=== PATIENT | male | born 1965 | race Asian ===

== ENCOUNTER 2020-07-04 14:19 | Inpatient (IN) | payer MEDICAID ==
[~2020-07-04] VITALS: Ht 170.2 cm; Wt 59.6 kg
[2020-07-04 14:30] VITALS: BP 141/76
--- NOTE | 2020-07-04 14:41 | Emergency Room Report ---
History of Present Illness General Chief Complaint: Chest Pain Source: Patient Present Illness HPI Patient presents with dyspnea on exertion and left-sided chest pain that is been intermittent over the last 10 days. He gets extremely out of breath when he tries to walk. He denies prior blood clot or cardiac disease. He denies fevers or chills. He denies productive cough. No sore throat. No abdominal pain. He may have had some black stools intermittently in the past few weeks. He denies diarrhea. He denies dysuria or polyuria. No joint pain. The patient denies risk factors for cardiac disease. The patient has a lesion in the right forehead. He says his doctors have told him it is not a problem. He does not know the diagnosis. The patient denies contact or exposure to possible COVID-19 sources. No palpitations, nausea, vomiting, depression, anxiety, visual changes, dizziness, headache. Later states status post renal transplant 4 years ago. On transplant medications. Prior to transplant 6-7 years of dialysis. 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 Patient History Past Medical History: see triage record Past Surgical History: other - Renal transplant, dialysis fistula Social History: Denies: smoking, alcohol use, drug use Social History Narrative , in [place], lives by himself Reviewed Nursing Documentation: PMH: Agreed; PSxH: Agreed Nursing Documentation-PMH Past Medical History: No History, Except For Hx Hypertension: Yes Review of Systems All Other Systems: negative except mentioned in HPI Physical Exam Vital Signs Date Time Temp Pulse Resp B/P (MAP) Pulse Ox O2 Delivery O2 Flow Rate FiO2 07/04/20 14:20 98.1 82 18 136/70 (92) 98 Room Air Sp02 EP Interpretation: reviewed, normal General Appearance: well appearing, GCS 15, mild distress Head: normocephalic, atraumatic Eyes: bilateral eye PERRL, bilateral eye EOMI, bilateral eye conjunctivae pale ENT: moist mucus membranes Neck: full range of motion, supple Respiratory: chest non-tender, lungs clear, normal breath sounds, other - Tachypnea Cardiovascular #1: normal peripheral pulses, no edema, no murmur, tachycardia Cardiovascular #2: 2+ radial (L) - fistula L Gastrointestinal: non tender, soft, decreased bowel sounds Genitourinary: no CVA tenderness Musculoskeletal: back normal, normal range of motion, no calf tenderness Neurologic: oriented x3, grossly normal Psychiatric: mood/affect normal Skin: warm/dry, pallor, other - open fungating lesion R forehead Procedures Critical Care Time Critical Care Time Total Critical Care Time: 90 min bedside evaluation and treatment excludes procedures (EKG). Reason for critical care: Critical anemia, profound metabolic acidosis, acute renal failure, repeat evaluations, blood transfusion, elevated troponin Possible complications: hypotension, hypertension, IA, shock, arrhythmias, metabolic acidosis, end organ damage, respiratory failure. Interventions: Repeat assessments, blood transfusion, arrangement for emergent dialysis Course: Patient presented with dyspnea. Consideration of acute coronary syndrome with administration of aspirin and Nitropaste. Critical anemia with blood ordered. Informed consent discussed with patient. Severe metabolic acidosis. Reassessment with history of renal transplant and prior dialysis. Notified of elevated troponin. Evaluation of indicated treatment. Contact admitting physician with statement of needing emergent hemodialysis. Blood ordered and patient transfused and tolerating transfusion after informed consent. Consultations: nursing staff, EMS, admitting dialysis physician Performed by: Dr. Collins Tolerated well condition = critical Medical Decision Making Diagnostic Impression: Primary Impression: Acute renal failure Qualified Codes: N17.9 - Acute kidney failure, unspecified Additional Impressions: Chest pain Qualified Codes: R07.9 - Chest pain, unspecified Profound anemia Qualified Codes: D64.9 - Anemia, unspecified Status post kidney transplant Metabolic acidosis Basal cell carcinoma Qualified Codes: C44.41 - Basal cell carcinoma of skin of scalp and neck Elevated troponin ER Course Patient presents with dyspnea on exertion. Differential differential includes acute myocardial infarction, acute coronary syndrome, sepsis, COVID-19, pulmonary embolus amongst others. Patient evaluated with EKG, chest x-ray and labs. Patient placed on a monitoring specialist. Aspirin and nitroglycerin paste applied for possible acute coronary syndrome. Cardiac risk factors nil according to patient's history. High suspicion of acute coronary syndrome. Lack of hypoxia is against pulmonary embolus. Extremely complex patient. Lab called with low hgb. Blood ordered. 1520 Informed consent for blood transfusion. Lab called low bicarb. ABG ordered. Salicylate ordered. Severe acidosis by blood gas. Rest of electrolytes reviewed and renal failure determined. Of note potassium minimally elevated. Elevated BNP elevated BNP with clear chest x-ray. Minimally elevated troponin treated with aspirin and nitroglycerin paste. Consider troponin leak in the face of renal failure. Holding on Lovenox and metoprolol. Reevaluation after severe acidosis and anemia and renal failure patient divulges the history that he is post renal transplant and had prior dialysis. Low temp. Tylenol ordered and BC and lactic acid. 1542 due to immunocompromise state of taking transplant suppression medication antibiotics begun. Source unclear. Contact Dr. Hyde for admission and dialysis 1554 Blood started. Patient still tachypneic. No hypoxemia. Patient admitted to telemetry with anticipatory emergent dialysis. Laboratory Tests Test 07/04/20 14:26 07/04/20 15:45 07/04/20 15:54 07/04/20 16:38 White Blood Count 13.1 K/UL (4.8-10.8) H Red Blood Count 2.18 M/UL (4.70-6.10) L Hemoglobin 6.0 G/DL (14.2-18.0) *L Hematocrit 19.0 % (42.0-52.0) L Mean Corpuscular Volume 87 FL (80-99) Mean Corpuscular Hemoglobin 27.7 PG (27.0-31.0) Mean Corpuscular Hemoglobin Concent 31.9 G/DL (32.0-36.0) L Red Cell Distribution Width 19.7 % (11.6-14.8) H Platelet Count 129 K/UL (150-450) L Mean Platelet Volume 8.3 FL (6.5-10.1) Neutrophils (%) (Auto) % (45.0-75.0) Lymphocytes (%) (Auto) % (20.0-45.0) Monocytes (%) (Auto) % (1.0-10.0) Eosinophils (%) (Auto) % (0.0-3.0) Basophils (%) (Auto) % (0.0-2.0) Neutrophils % (Manual) 92 % (45-75) H Lymphocytes % (Manual) 3 % (20-45) L Monocytes % (Manual) 5 % (1-10) Eosinophils % (Manual) 0 % (0-3) Basophils % (Manual) 0 % (0-2) Band Neutrophils 0 % (0-8) Platelet Estimate Decreased L Platelet Morphology Normal Hypochromasia 3+ Anisocytosis 3+ Prothrombin Time 12.0 SEC (9.30-11.50) H Prothrombin Time INR 1.1 (0.9-1.1) Activated Partial Thromboplast Time 33 SEC (23-33) Sodium Level 125 MMOL/L (136-145) L Potassium Level 5.2 MMOL/L (3.5-5.1) H Chloride Level 100 MMOL/L (98-107) Carbon Dioxide Level 7 MMOL/L (21-32) *L Anion Gap 18 mmol/L (5-15) H Blood Urea Nitrogen 148 mg/dL (7-18) H Creatinine 12.6 MG/DL (0.55-1.30) H Estimated Glomerular Filtration Rate 4.1 mL/min (>60) Glucose Level 164 MG/DL (74-106) H Calcium Level 8.8 MG/DL (8.5-10.1) Total Bilirubin 0.5 MG/DL (0.2-1.0) Aspartate Amino Transferase (AST) 13 U/L (15-37) L Alanine Aminotransferase (ALT) 23 U/L (12-78) Alkaline Phosphatase 55 U/L (46-116) Total Creatine Kinase 90 U/L (26-308) Troponin I 0.084 ng/mL (0.000-0.056) C-Reactive Protein, Quantitative 28.6 mg/dL (0.00-0.90) H Pro-B-Type Natriuretic Peptide 90906 pg/mL (0-125) H Total Protein 6.3 G/DL (6.4-8.2) L Albumin 2.8 G/DL (3.4-5.0) L Globulin 3.5 g/dL Albumin/Globulin Ratio 0.8 (1.0-2.7) L Lactic Acid Level 1.00 mmol/L (0.4-2.0) Arterial Blood pH 7.269 (7.350-7.450) Arterial Blood Partial Pressure CO2 12.2 mmHg (35.0-45.0) *L Arterial Blood Partial Pressure O2 143.4 mmHg (75.0-100.0) H Arterial Blood HCO3 5.5 mmol/L (22.0-26.0) *L Arterial Blood Oxygen Saturation 97.2 % (95-100) Arterial Blood Base Excess -19.7 (-2-2) *L Jose Test Positive Urine Random Sodium 48 mmol/L (20-110) Urine Creatinine 59.0 MG/DL (30.0-125.0) Test 07/04/20 16:40 Ferritin 1832 NG/ML (8-388) H Lactate Dehydrogenase 202 U/L (81-234) Thyroid Stimulating Hormone (TSH) 0.528 uiU/mL (0.358-3.740) Salicylates Level 4.4 ug/mL (2.8-20) Microbiology Date/Time Source Procedure Growth Status 07/04/20 14:49 Nasopharynx SARS-CoV-2 RdRp Gene Assay - Final Complete EKG Diagnostic Results Rate: normal Rhythm: NSR ST Segments: no acute changes Rhythm Strip Diag. Results EP Interpretation: yes Rhythm: NSR, no PVC's, no ectopy Chest X-Ray Diagnostic Results Chest X-Ray Diagnostic Results : Chest X-Ray Ordered: Yes # of Views/Limited/Complete: 1 View Indication: Other EP Interpretation: Yes Interpretation: no consolidation, no effusion, no pneumothorax Impression: No acute disease Electronically Signed by: Electronically signed by Melo Collins MD Last Vital Signs Date Time Temp Pulse Resp B/P (MAP) Pulse Ox O2 Delivery O2 Flow Rate FiO2 07/05/20 00:00 97.0 78 19 100/60 (73) 96 07/04/20 21:54 Room Air Status: improved Disposition: ADMITTED INPATIENT Condition: Serious Melo Collins MD Jul 04, 2020 14:41
[2020-07-04] MEDS ORDERED: Nitroglycerin 2% oint pkt TOPIC ONE (14:45)
[2020-07-04 15:11] LABS: INR 1.1 (0.9-1.1)
[2020-07-04 15:15] LABS: MEAN CORPUSCULAR VOLUME 87 FL (80-99); PLATELET COUNT 129 K/UL (150-450); RED BLOOD COUNT 2.18 M/UL (4.70-6.10); RED CELL DISTRIBUTION WIDTH 19.7 % (11.6-14.8); WHITE BLOOD COUNT 13.1 K/UL (4.8-10.8)
[2020-07-04 15:23] LABS: ALANINE AMINOTRANSFERASE 23 U/L (12-78); ALBUMIN 2.8 G/DL (3.4-5.0); ALBUMIN/GLOBULIN RATIO 0.8 (1.0-2.7); ALKALINE PHOSPHATASE 55 U/L (46-116); ANION GAP 18 mmol/L (5-15); ASPARTATE AMINO TRANSFERASE 13 U/L (15-37); BILIRUBIN,TOTAL 0.5 MG/DL (0.2-1.0); BLOOD UREA NITROGEN 148 mg/dL (7-18); CALCIUM 8.8 MG/DL (8.5-10.1); CHLORIDE 100 MMOL/L (98-107); CREATINE KINASE 90 U/L (26-308); CREATININE 12.6 MG/DL (0.55-1.30); POTASSIUM 5.2 MMOL/L (3.5-5.1); SODIUM 125 MMOL/L (136-145)
[2020-07-04 15:29] LABS: CARBON DIOXIDE 7 MMOL/L (21-32)
[2020-07-04] MEDS ORDERED: Acetaminophen 500mg (ES) tab ORAL ONE (15:45)
[2020-07-04] MEDS ORDERED: cefTRIAXone 1 GM in NS 55 ML IVPB ONE (16:00)
--- NOTE | 2020-07-04 16:24 | Diagnostic Imaging Report ---
Indication: Chest pain Technique: One view of the chest Comparison: 06/20/2020 Findings: Lungs and pleural spaces are clear. Heart size is upper limits normal. No significant change Impression: No acute process
[2020-07-04 17:26] LABS: FERRITIN 1832 NG/ML (8-388); LACTATE DEHYDROGENASE 202 U/L (81-234)
[2020-07-04] MEDS ORDERED: Heparin Sod 1000 units/ml 10ml IV PRN (18:30)
[2020-07-04] MEDS ORDERED: COREG3.125 MG ORAL (18:35)
[2020-07-04] MEDS ORDERED: Miralax 17gm pkt ORAL PRN (18:45)
[2020-07-04] MEDS ORDERED: Zolpidem 5mg tab ORAL PRN (18:45)
[2020-07-04 20:00] VITALS: BP 127/64
[2020-07-04] MEDS ORDERED: Epoetin Alfa-EPBX(ESRD on dialysis)4000 units/ml vial SUBQ SCH (21:00)
[2020-07-04] MEDS: Nephrovite tab (Rena-Vite) ORAL SCH (21:10)
[2020-07-05] VITALS (10 sets, daily range): BP systolic 76–131; BP diastolic 50–80
[2020-07-05 07:30] LABS: HEMATOCRIT 21.4 % (42.0-52.0); MEAN CORPUSCULAR VOLUME 89 FL (80-99); PLATELET COUNT 90 K/UL (150-450); RED BLOOD COUNT 2.41 M/UL (4.70-6.10); RED CELL DISTRIBUTION WIDTH 18.1 % (11.6-14.8); WHITE BLOOD COUNT 8.9 K/UL (4.8-10.8)
[2020-07-05 07:43] LABS: BLOOD UREA NITROGEN 157 mg/dL (7-18); CALCIUM 8.4 MG/DL (8.5-10.1); CHLORIDE 100 MMOL/L (98-107); CHOLESTEROL 78 MG/DL (< 200); CREATININE 13.1 MG/DL (0.55-1.30); HDL CHOLESTEROL 18 MG/DL (40-60); POTASSIUM 5.1 MMOL/L (3.5-5.1); SODIUM 131 MMOL/L (136-145); TRIGLYCERIDES 95 MG/DL (30-150)
[2020-07-05 07:44] LABS: % IRON SATURATION 17 % (15-50); IRON 16 ug/dL (50-175); TOTAL IRON BINDING CAPACITY 96 ug/dL (250-450)
[2020-07-05 07:45] LABS: CARBON DIOXIDE < 5 MMOL/L (21-32)
[2020-07-05 08:05] LABS: HEMOGLOBIN 6.7 G/DL (14.2-18.0)
[2020-07-05] MEDS: Nephrovite tab (Rena-Vite) ORAL SCH (09:32)
--- NOTE | 2020-07-05 12:10 | History & Physical ---
History and Physical History & Physicial dictated [id number] Raulito Hyde MD Jul 05, 2020 12:10
--- NOTE | 2020-07-05 13:44 | History and Physical Report ---
DATE OF ADMISSION: 07/04/2020 CHIEF COMPLAINT: Dyspnea on exertion. HISTORY OF PRESENT ILLNESS: This is a 55-year-old [place] male with history of cadaveric renal transplantation about four and a half years ago at [facility]. The patient has not seen any doctors for a while. Last time he saw the transplant team was about a year and a half ago. He said that he did not seek any medical attention after that because [place] was closed. He has been short of breath, especially when he walks for the past 10 days or so, and finally he came to the ER. He was found to be severely uremic and acidotic. BUN and creatinine were 148 and 12.6 respectively. Bicarbonate down to 7 as well as hyponatremic with serum sodium 125. Severe anemia with hemoglobin of 6. PAST MEDICAL HISTORY: History of hypertension and end-stage renal disease. He has a left upper arm fistula. MEDICATIONS: Medications he said that he was taking are immunosuppressive medications, Prograf and prednisone. It is unclear. He does have a list of his medications. The only medication listed is Coreg for hypertension. SOCIAL HISTORY: No history of smoking or alcohol abuse. ALLERGIES: No known drug allergies. REVIEW OF SYSTEMS: As above. PHYSICAL EXAMINATION: GENERAL: The patient is a chronically ill-looking male, in no acute distress. Large ulcerating mass over head. VITAL SIGNS: Blood pressure 114/61, pulse 75, respirations 20, and temperature 97.5. HEENT: Pale conjunctivae. Anicteric sclerae. NECK: Supple. LUNGS: Clear to auscultation. HEART: S1, S2 without murmurs or rubs. ABDOMEN: Soft, nontender. EXTREMITIES: No cyanosis or edema. The patient has left upper arm fistula with some pseudoaneurysm and some faint bruit. LABORATORY FINDINGS: The CBC shows a WBC of 8900, hematocrit 21.4, hemoglobin 7.7, platelets 90,000. This is after one unit of packed red blood cell transfusion. Chemistry panel shows a serum sodium 131, potassium 5.1, chloride 100, CO2 less than 5, BUN 157, creatinine 13.1. Blood sugar is 114. Calcium is 8.4. Blood gas shows a pH of 7.27, pCO2 of 12, pO2 of 143. The patient had blood cultures done showing gram-negative rods and gram-positive cocci in cluster. COVID-19 test was negative. ASSESSMENT: This is a 55-year-old [place] male with history of end-stage renal disease, status post cadaveric renal transplantation about 4-1/2 years ago with no followup for at least one and a half years. He does not know even what his serum creatinine has been one and a half years ago. He is severely uremic with severe metabolic acidosis which explains also the feeling of shortness of breath. He is severely anemic because of his end-stage renal disease. It is unclear if he has either rejection of the transplanted kidney or he has an obstruction, which is much less likely. It appears that this worsening of his kidney function has been going on for a while, as the patient is severely anemic. It is also unclear why he is bacteremic. He does not have any catheters. Urinary tract infection is a possibility. he has also a mass over his head, possibly cancer. PLAN: The patient will be dialyzed today. He already got one unit of packed red blood cells. He will get another unit today. He needs to be on iron because his iron saturation is low. He will be on Epogen and Nephro-Tejas daily, broad-spectrum antibiotics. ID consultation will be obtained. Case was discussed with the RN. He will need to have dialysis set up as an outpatient and eventually a kidney biopsy to see if the transplanted kidney is viable. Oncology consult will be obtained. Raulito Hyde M.D. DR: IAIN JOB#: [id number] CC: ELIE
[2020-07-05] MEDS ORDERED: Cefepime HCl 500 MG in D5W 55 ML IVPB SCH ×5 (14:00→21:00)
--- NOTE | 2020-07-05 14:16 | Diagnostic Imaging Report ---
EXAM: ULTRASOUND US Renal Comp CLINICAL HISTORY: Renal failure. COMPARISON: None TECHNIQUE: Ultrasound examination of the kidneys includes grayscale images, and color and spectral doppler analysis. FINDINGS: The right kidney measures 8.3 x 3.9 x 3.7 cm and the left kidney measures 7.9 x 3.2 x 3.5 cm. Both [place] kidneys are small and echogenic with multiple cysts reflecting history of chronic renal failure. There is a transplant kidney noted in the left iliac fossa measuring 9.9 x 4.2 x 5.2 cm. Vascular flow to the transplant is maintained but there is elevated peak systolic velocity and high resistive index in the renal artery particularly at the anastomosis measuring 207 cm/s with an RI of 0.88. Infrarenal velocities are decreased. There is slight fullness of the renal pelvis of the transplant with a questionable small stone. Bladder is grossly unremarkable. IMPRESSION: ATROPHIC AND ECHOGENIC [place] KIDNEYS WITH MULTIPLE CYSTS REFLECTING CHRONIC MEDICAL RENAL DISEASE. TRANSPLANT KIDNEY NOTED IN THE LEFT ILIAC FOSSA. THERE IS ELEVATED VELOCITIES AND RESISTIVE INDEX AT THE ARTERIAL ANASTOMOSIS THERE IS QUESTION POSSIBLE RENAL ARTERY STENOSIS OF THE TRANSPLANT NOTED. SLIGHT FULLNESS OF THE RENAL PELVIS OF THE TRANSPLANT WITH A QUESTIONABLE SMALL STONE.
[2020-07-05] MEDS ORDERED: Morphine Sulfate 2mg/ml Inj(IV/IM USE ONLY) IVP PRN ×2 (15:15→17:00)
[2020-07-05] MEDS ORDERED: Nitroglycerin Subl 0.4mg tab SL PRN ×2 (15:15→17:00)
[2020-07-05] MEDS ORDERED: Digoxin 0.5mg/2ml Inj IVP SCH (15:30)
[2020-07-05] MEDS ORDERED: dilTIAZem HCl 25mg/5ml Inj IVP SCH ×3 (16:00→16:30)
--- NOTE | 2020-07-05 16:00 | Cardiac Electrophysiology PN ---
Subjective Subjective [id number] Objective Last 24 Hour Vital Signs Date Time Temp Pulse Resp B/P (MAP) Pulse Ox O2 Delivery O2 Flow Rate FiO2 07/05/20 15:31 156 07/05/20 12:00 97.4 74 20 121/80 (94) 100 07/05/20 11:45 81 07/05/20 09:00 Nasal Cannula 2.0 07/05/20 08:00 97.5 75 20 114/61 (78) 100 07/05/20 07:47 76 07/05/20 04:00 71 07/05/20 04:00 97.8 91 18 101/56 (71) 97 07/05/20 00:00 97.0 78 19 100/60 (73) 96 07/05/20 00:00 81 07/04/20 21:54 Room Air 07/04/20 21:41 99.9 07/04/20 20:00 110 07/04/20 20:00 97.5 95 20 127/64 (85) 96 07/04/20 16:24 99.9 Laboratory Tests Test 07/04/20 16:38 07/04/20 16:40 07/05/20 06:11 Urine Random Sodium 48 mmol/L (20-110) Urine Creatinine 59.0 MG/DL (30.0-125.0) Ferritin 1832 NG/ML (8-388) H Lactate Dehydrogenase 202 U/L (81-234) Thyroid Stimulating Hormone (TSH) 0.528 uiU/mL (0.358-3.740) Salicylates Level 4.4 ug/mL (2.8-20) White Blood Count 8.9 K/UL (4.8-10.8) Red Blood Count 2.41 M/UL (4.70-6.10) L Hemoglobin 6.7 G/DL (14.2-18.0) *L Hematocrit 21.4 % (42.0-52.0) L Mean Corpuscular Volume 89 FL (80-99) Mean Corpuscular Hemoglobin 27.7 PG (27.0-31.0) Mean Corpuscular Hemoglobin Concent 31.2 G/DL (32.0-36.0) L Red Cell Distribution Width 18.1 % (11.6-14.8) H Platelet Count 90 K/UL (150-450) L Mean Platelet Volume 6.8 FL (6.5-10.1) Neutrophils (%) (Auto) % (45.0-75.0) Lymphocytes (%) (Auto) % (20.0-45.0) Monocytes (%) (Auto) % (1.0-10.0) Eosinophils (%) (Auto) % (0.0-3.0) Basophils (%) (Auto) % (0.0-2.0) Differential Total Cells Counted 100 Neutrophils % (Manual) 93 % (45-75) H Lymphocytes % (Manual) 1 % (20-45) L Monocytes % (Manual) 3 % (1-10) Eosinophils % (Manual) 0 % (0-3) Basophils % (Manual) 0 % (0-2) Band Neutrophils 3 % (0-8) Platelet Estimate Decreased L Platelet Morphology Normal Hypochromasia 1+ Anisocytosis 1+ Sodium Level 131 MMOL/L (136-145) L Potassium Level 5.1 MMOL/L (3.5-5.1) Chloride Level 100 MMOL/L (98-107) Carbon Dioxide Level < 5 MMOL/L (21-32) *L Blood Urea Nitrogen 157 mg/dL (7-18) H Creatinine 13.1 MG/DL (0.55-1.30) H Estimat Glomerular Filtration Rate 4.0 mL/min (>60) Glucose Level 114 MG/DL (74-106) H Hemoglobin A1c 5.0 % (4.3-6.0) Calcium Level 8.4 MG/DL (8.5-10.1) L Iron Level 16 ug/dL (50-175) L Total Iron Binding Capacity 96 ug/dL (250-450) L Percent Iron Saturation 17 % (15-50) Unsaturated Iron Binding 80 ug/dL (112-346) L Triglycerides Level 95 MG/DL (30-150) Cholesterol Level 78 MG/DL (< 200) LDL Cholesterol 38 mg/dL (<100) HDL Cholesterol 18 MG/DL (40-60) L Cholesterol/HDL Ratio 4.3 (3.3-4.4) Hepatitis B Surface Antigen Pending Microbiology Date/Time Source Procedure Growth Status 07/04/20 15:44 Blood Blood Culture - Preliminary Resulted 07/04/20 15:30 Blood Blood Culture - Preliminary Resulted 8/19/20 14:49 Nasopharynx SARS-CoV-2 RdRp Gene Assay - Final Complete 07/04/20 19:00 Rectum Received Juaquin Tomlin MD Jul 05, 2020 16:00
[2020-07-05] MEDS ORDERED: dilTIAZem Premix 125mg/125ml 125 ML IVPB SCH ×4 (16:45→22:15)
[2020-07-05] MEDS ORDERED: dilTIAZem HCl 25mg/5ml Inj IVP ONE (16:45)
[2020-07-05] MEDS ORDERED: Digoxin 0.5mg/2ml Inj IVP ONE (16:45)
[2020-07-05] MEDS ORDERED: Miralax 17gm pkt ORAL PRN (17:00)
[2020-07-05] MEDS ORDERED: Heparin 25,000u/D5W 500ml 500 ML IV SCH ×2 (17:00)
--- NOTE | 2020-07-05 17:15 | Consultation ---
DATE OF CONSULTATION: 07/05/2020 INFECTIOUS DISEASE CONSULTATION CONSULTING PHYSICIAN: Darius Hyde MD. PRIMARY ATTENDING PHYSICIAN: Raulito Hyde MD. REASON FOR CONSULT: Gram-negative and gram-positive sepsis. HISTORY OF PRESENT ILLNESS: This is a 55-year-old male admitted yesterday from home because of left-sided chest pain and shortness of breath on exertion for 10 days. The patient was found to have leukocytosis of 13.1. Blood culture from yesterday growing gram-positive cocci in cluster and gram-negative rods. PAST MEDICAL HISTORY: Significant for end-stage renal disease. The patient has a history of renal transplant 4-1/2 years ago. According to primary doctor, noncompliance with his medication. He has hypertension. He has history of AV shunt placement in the left arm. ALLERGIES: Allergic to aspirin. MEDICATIONS: Getting IV iron, ceftriaxone, vancomycin, Epogen, Tylenol, and MiraLAX. SOCIAL HISTORY: . Denies alcohol, drug abuse, or smoking. REVIEW OF SYSTEMS: Subjective fever at home. He developed right temporal skin lesions in the past few days. He has shortness of breath and chest pain. No nausea. No vomiting. No diarrhea. No dysuria. PHYSICAL EXAMINATION: VITAL SIGNS: Temperature 97.4, pulse 74, blood pressure is 121/80. HEAD AND NECK: He has large ulcerated lesion with area of surrounding skin induration in bitemporal area. Pale conjunctivae. HEART: Normal rate. LUNGS: Clear. Getting oxygen by nasal cannula. ABDOMEN: Soft, nontender. EXTREMITIES: He has no edema. NEUROLOGIC: He is awake, alert, and oriented x3. LABORATORY AND DIAGNOSTIC DATA: Sodium 131, potassium 5.1, chloride 100, carbon dioxide less than 5, BUN 157, creatinine 13.1. Blood gas showed severe acidosis with pH of 7.269. Blood cultures, gram-positive cocci in cluster and gram-negative rods. COVID-19 test negative. IMPRESSION: Bacteremia, likely sepsis with gram-positive and gram-negative. The patient seems to have necrotic skin lesion in the right temporal area, likely skin cancer, may have infection also. He has rejected kidney transplant, renal failure, acidosis, severe anemia, and hypertension. RECOMMENDATIONS: Continue IV vancomycin. We will change ceftriaxone to cefepime. We will ask for UA and urine culture. We will follow up the cultures. At the end of my exam, I thank Dr. Raulito Hyde for involving me in the care of this patient. Darius Hyde M.D. DR: Nicole JOB#: [id number] CC:
[2020-07-05] MEDS ORDERED: Vancomycin 1.25gm/NS Premix 275 ML IVPB ONE (18:00)
[2020-07-05] MEDS ORDERED: Vancomycin 1.25gm/NS Premix 275 ML IVPB SCH (18:00)
--- NOTE | 2020-07-05 20:45 | Consultation ---
DATE OF CONSULTATION: 07/05/2020 CARDIOLOGY CONSULTATION CONSULTING PHYSICIAN: Juaquin Tomlin MD REFERRING PHYSICIAN: Raulito Hyde MD REASON FOR CONSULTATION: Atrial fibrillation, rapid ventricular response. HISTORY OF PRESENT ILLNESS: The patient is a 55-year-old Pashto gentleman with history of renal failure, status post kidney transplant about years ago at [facility]. He has not seen any doctor for a while. The patient last time saw transplant team about a year and a half ago. The patient states that [place] was closed. The patient came to the emergency room because he has been having increasing shortness of breath, was found to be severely uremic and acidotic. BUN and creatinine were 148 and 12.6 respectively and bicarb was only 7. His sodium was also 125 and was severely anemic with a hemoglobin of only 6. The patient was started on hemodialysis and is already getting blood transfusion, developed atrial fibrillation, rapid ventricular response with heart rate up to 170s even though initially he was in sinus rhythm. Cardiac electrophysiology consultation was obtained for further evaluation and management. REVIEW OF SYSTEMS: Negative other than what was mentioned in the history of present illness. MEDICATIONS: Included Prograf and prednisone even though it is not very clear. The only medicine he has listed is Coreg. SOCIAL HISTORY: He does not smoke or drink alcohol. ALLERGIES: He has no known drug allergies. PHYSICAL EXAMINATION: VITAL SIGNS: Show blood pressure of 120/80, pulse is 160, respirations 18, and he is afebrile. HEAD AND NECK: Shows positive JVD. LUNGS: Decreased breath sounds. CARDIOVASCULAR: Shows irregularly irregular, tachycardic S1 and S2. ABDOMEN: Soft. EXTREMITIES: No pitting edema. LABORATORY AND DIAGNOSTIC DATA: His labs show white count of 8.9, hemoglobin of 6, hematocrit of 19, and platelet count of only 90. Sodium is 131, potassium is 5.1, BUN of 157, creatinine of 13.1, and bicarb was less than 5. ASSESSMENT AND PLAN: 1. Atrial fibrillation, rapid ventricular response with heart rate of 180s. I will give the patient 0.5 mg IV digoxin once. We will check a digoxin level tomorrow morning. In the meantime, transfer the patient to intensive care unit, start the patient on Cardizem drip. We will get an echocardiogram for further evaluation when the heart rate is better controlled and completely rule out [place] protocol. 2. Profound anemia, hemoglobin of only 6. The patient is getting blood transfusion. 3. Acute renal failure in a patient with history of kidney transplant. The patient currently is on hemodialysis under management of Dr. Hyde. 4. Lactic acidosis. 5. Thrombocytopenia. 6. History of hypertension. 7. History of left arm fistula. Thank you very much Dr. Hyde for allowing me to participate in the care of this patient. Please do not hesitate to contact me for any questions regarding my evaluation. Juaquin Tomlin M.D. DR: NATALIA JOB#: [id number] CC:
[2020-07-05] MEDS ORDERED: Zolpidem 5mg tab ORAL PRN (21:00)
[2020-07-05] MEDS ORDERED: cefTRIAXone 1 GM in D5W 55 ML IVPB SCH (21:00)
[2020-07-05] MEDS ORDERED: Iron Sucrose 100 MG in NS 55 ML IV SCH (21:00)
[2020-07-06] VITALS (17 sets, daily range): BP systolic 91–134; BP diastolic 51–69
[2020-07-06] MEDS ORDERED: Heparin 5000 units/ml inj IV ONE (00:30)
[2020-07-06] MEDS ORDERED: Heparin 25,000u/D5W 500ml 500 ML IV SCH (00:30)
[2020-07-06 07:16] LABS: HEMATOCRIT 22.7 % (42.0-52.0); HEMOGLOBIN 7.4 G/DL (14.2-18.0); MEAN CORPUSCULAR VOLUME 86 FL (80-99); PLATELET COUNT 92 K/UL (150-450); RED BLOOD COUNT 2.63 M/UL (4.70-6.10); RED CELL DISTRIBUTION WIDTH 13.4 % (11.6-14.8); WHITE BLOOD COUNT 9.3 K/UL (4.8-10.8)
[2020-07-06 07:32] LABS: ANION GAP 28 mmol/L (5-15); BLOOD UREA NITROGEN 116 mg/dL (7-18); CALCIUM 7.5 MG/DL (8.5-10.1); CARBON DIOXIDE 11 MMOL/L (21-32); CHLORIDE 99 MMOL/L (98-107); CREATININE 10.1 MG/DL (0.55-1.30); POTASSIUM 3.8 MMOL/L (3.5-5.1); SODIUM 138 MMOL/L (136-145)
[2020-07-06] MEDS ORDERED: Heparin1,000 units/500ml Premix(Conc:2 units/ml) IV SCH (09:00)
[2020-07-06] MEDS ORDERED: Nephrovite tab (Rena-Vite) ORAL SCH (09:00)
--- NOTE | 2020-07-06 09:27 | Infectious Diseases Prog Note ---
Assessment/Plan Assessment/Plan IMPRESSION: Sepsis with Staph aureus and gram-negatives Atrial fibrillation with RVR Necrotic skin lesion in the right temporal area, ? skin cancer, Rejected kidney transplant, Renal failure, Acidosis, Severe anemia, Hypertension. RECOMMENDATIONS: Continue IV vancomycin &cefepime. We will follow up the cultures. Subjective ROS Limited/Unobtainable: No Constitutional: Reports: other - tranferred to ICU, feels better; Denies: fever Respiratory: Reports: no symptoms Cardiovascular: Reports: no symptoms Gastrointestinal/Abdominal: Reports: no symptoms Genitourinary: Reports: no symptoms Allergies: Coded Allergies: ASPIRIN (Verified Allergy, Unknown, 07/04/20) Objective Last 24 Hour Vital Signs Date Time Temp Pulse Resp B/P (MAP) Pulse Ox O2 Delivery O2 Flow Rate FiO2 07/06/20 08:00 97.6 85 23 93/51 (65) 100 07/06/20 08:00 Nasal Cannula 2.0 07/06/20 07:00 83 18 92/56 (68) 100 07/06/20 06:00 82 15 108/57 (74) 100 07/06/20 05:00 81 14 91/60 (70) 100 07/06/20 04:00 Nasal Cannula 3.0 07/06/20 04:00 85 07/06/20 04:00 98.5 82 19 103/62 (76) 100 07/06/20 03:00 84 20 99/60 (73) 100 07/06/20 02:00 85 15 119/53 (75) 100 07/06/20 01:00 84 17 102/54 (70) 100 07/06/20 00:00 98.3 88 23 106/69 (81) 100 07/06/20 00:00 90 07/06/20 00:00 Nasal Cannula 3.0 07/05/20 23:00 86 17 89/59 (69) 100 07/05/20 22:00 92 17 96/58 (71) 100 07/05/20 21:00 90 17 98/57 (71) 100 07/05/20 20:00 Nasal Cannula 3.0 07/05/20 20:00 98.6 104 23 90/56 (67) 100 07/05/20 20:00 119 07/05/20 19:00 106 23 76/50 (59) 100 07/05/20 16:38 140 125/64 07/05/20 16:00 97.5 150 20 131/58 (82) 100 07/05/20 16:00 126 07/05/20 16:00 Nasal Cannula 3.0 07/05/20 15:31 156 07/05/20 12:00 97.4 74 20 121/80 (94) 100 07/05/20 11:45 81 Height (Feet): 5 Height (Inches): 7.00 Weight (Pounds): 131 General Appearance: no acute distress HEENT: mucous membranes moist Respiratory/Chest: lungs clear Cardiovascular: normal rate Abdomen: soft, non tender Extremities: no edema Skin: ulcers, other - R temporal Neurologic/Psychiatric: alert, oriented x 3, responsive Microbiology Date/Time Source Procedure Growth Status 07/04/20 15:44 Blood Blood Culture - Preliminary Gram Negative Morgan Resulted 07/04/20 15:30 Blood Blood Culture - Preliminary Staphylococcus Aureus Gram Negative Morgan Resulted 07/04/20 14:49 Nasopharynx SARS-CoV-2 RdRp Gene Assay - Final Complete 07/04/20 19:00 Rectum Received Laboratory Tests Test 07/05/20 16:52 07/05/20 16:56 07/05/20 23:44 07/06/20 02:50 Activated Partial Thromboplast Time 32 SEC (23-33) 55 SEC (23-33) H Troponin I 0.092 ng/mL (0.000-0.056) 0.216 ng/mL (0.000-0.056) White Blood Count 9.3 K/UL (4.8-10.8) Red Blood Count 2.63 M/UL (4.70-6.10) L Hemoglobin 7.4 G/DL (14.2-18.0) L Hematocrit 22.7 % (42.0-52.0) L Mean Corpuscular Volume 86 FL (80-99) Mean Corpuscular Hemoglobin 28.3 PG (27.0-31.0) Mean Corpuscular Hemoglobin Concent 32.7 G/DL (32.0-36.0) Red Cell Distribution Width 13.4 % (11.6-14.8) Platelet Count 92 K/UL (150-450) L Mean Platelet Volume 6.1 FL (6.5-10.1) L Neutrophils (%) (Auto) % (45.0-75.0) Lymphocytes (%) (Auto) % (20.0-45.0) Monocytes (%) (Auto) % (1.0-10.0) Eosinophils (%) (Auto) % (0.0-3.0) Basophils (%) (Auto) % (0.0-2.0) Neutrophils % (Manual) Pending Lymphocytes % (Manual) Pending Platelet Estimate Pending Platelet Morphology Pending Sodium Level 138 MMOL/L (136-145) Potassium Level 3.8 MMOL/L (3.5-5.1) Chloride Level 99 MMOL/L (98-107) Carbon Dioxide Level 11 MMOL/L (21-32) L Anion Gap 28 mmol/L (5-15) H Blood Urea Nitrogen 116 mg/dL (7-18) H Creatinine 10.1 MG/DL (0.55-1.30) H Estimat Glomerular Filtration Rate 5.3 mL/min (>60) Glucose Level 111 MG/DL (74-106) H Calcium Level 7.5 MG/DL (8.5-10.1) L Pro-B-Type Natriuretic Peptide > 80327 pg/mL (0-125) H Thyroid Stimulating Hormone (TSH) 0.838 uiU/mL (0.358-3.740) Free Thyroxine 1.54 NG/DL (0.76-1.46) H Digoxin Level 1.3 NG/ML (0.5-2.0) Test 07/06/20 07:13 Activated Partial Thromboplast Time 85 SEC (23-33) H Current Medications Medications (Trade) Dose Ordered Sig/Marco A Route PRN Reason Start Time Stop Time Status Last Admin Dose Admin Acetaminophen (Tylenol) 650 mg Q4H PRN ORAL Mild Pain (Pain Scale 1-3) 07/05/20 17:00 08/03/20 16:59 Cefepime HCl 500 mg/Dextrose 55 ml @ 110 mls/hr Q24H IVPB 07/05/20 21:00 07/12/20 20:59 07/05/20 20:25 Dextrose (Dextrose 50%) 25 ml Q30M PRN IV Hypoglycemia 07/05/20 17:15 10/02/20 18:44 Dextrose (Dextrose 50%) 50 ml Q30M PRN IV Hypoglycemia 07/05/20 17:00 10/02/20 16:59 Diltiazem HCl 125 ml @ 0 mls/hr Q24H IVPB 07/05/20 22:15 07/06/20 22:14 07/05/20 22:22 Epoetin Mode (Epoetin Mode(ESRD on dialysis)) 8,000 unit THU-THU-THU SUBQ 07/06/20 21:00 10/02/20 20:59 Heparin Sodium/ Dextrose 500 ml @ 23.775 mls/ hr ADJUST PER PROTOCOL IV 07/06/20 00:30 08/05/20 00:29 07/06/20 00:53 Iron Sucrose 100 mg/Sodium Chloride 60 ml @ 240 mls/hr BEDTIME IV 07/06/20 21:00 07/10/20 21:14 Morphine Sulfate (Morphine Sulfate) 2 mg Q4H PRN IVP pain 4-10 07/05/20 17:00 07/12/20 16:59 Nitroglycerin (Ntg) 0.4 mg Q5M PRN SL Prn Chest Pain 07/05/20 17:00 08/04/20 16:59 Polyethylene Glycol (Miralax) 17 gm DAILYPRN PRN ORAL Constipation 07/05/20 17:00 08/03/20 16:59 Vancomycin HCl ([facility]anco pharmacy to dose) 1 ea DAILY PRN MISC Per rx protocol 07/05/20 17:00 08/04/20 16:59 Vitamin B Complex/ Vit C/Folic Acid (Nephrovite) 1 tab DAILY ORAL 07/06/20 09:00 08/03/20 19:59 07/06/20 08:15 Zolpidem Tartrate (Ambien) 5 mg HSPRN PRN ORAL Insomnia 07/05/20 21:00 07/11/20 20:59 Darius Hyde MD Jul 06, 2020 09:27
--- NOTE | 2020-07-06 12:07 | Cardiac Electrophysiology PN ---
Assessment/Plan Assessment/Plan 1. Atrial fibrillation, rapid ventricular response with heart rate of 180s. Got 0.5 mg IV digoxin once. Digoxin level is 1.3 Change Cardizem drip to 60 po tid Echocardiogram EF 65%. Change heparin drip to Eliquis 2.5 bid 2. Profound anemia, hemoglobin of only 6. S/P 1 unit blood transfusion. Could be due to renal failure 3. Acute renal failure in a patient with history of kidney transplant. The patient currently is on hemodialysis under management of Dr. Hyde. 4. Lactic acidosis. 5. Thrombocytopenia. 6. History of hypertension. 7. History of left arm fistula. ORLIN RN Subjective Subjective In ICU. Converted to SR on CArdizem drip. Alert in NAD Objective Last 24 Hour Vital Signs Date Time Temp Pulse Resp B/P (MAP) Pulse Ox O2 Delivery O2 Flow Rate FiO2 07/06/20 10:00 78 18 114/58 (76) 100 07/06/20 09:00 78 21 104/52 (69) 100 07/06/20 08:00 97.6 85 23 93/51 (65) 100 07/06/20 08:00 Nasal Cannula 2.0 07/06/20 07:00 83 18 92/56 (68) 100 07/06/20 06:00 82 15 108/57 (74) 100 07/06/20 05:00 81 14 91/60 (70) 100 07/06/20 04:00 Nasal Cannula 3.0 07/06/20 04:00 85 07/06/20 04:00 98.5 82 19 103/62 (76) 100 07/06/20 03:00 84 20 99/60 (73) 100 07/06/20 02:00 85 15 119/53 (75) 100 07/06/20 01:00 84 17 102/54 (70) 100 07/06/20 00:00 98.3 88 23 106/69 (81) 100 07/06/20 00:00 90 07/06/20 00:00 Nasal Cannula 3.0 07/05/20 23:00 86 17 89/59 (69) 100 07/05/20 22:00 92 17 96/58 (71) 100 07/05/20 21:00 90 17 98/57 (71) 100 07/05/20 20:00 Nasal Cannula 3.0 07/05/20 20:00 98.6 104 23 90/56 (67) 100 07/05/20 20:00 119 07/05/20 19:00 106 23 76/50 (59) 100 07/05/20 16:38 140 125/64 07/05/20 16:00 97.5 150 20 131/58 (82) 100 07/05/20 16:00 126 07/05/20 16:00 Nasal Cannula 3.0 07/05/20 15:31 156 Intake and Output 07/05/20 07/06/20 19:00 07:00 Intake Total 403.878 ml 705.21687 ml Output Total 0 ml Balance 403.878 ml 705.16012 ml Intake Oral 200 ml 240 ml IV Total 203.878 ml 465.53852 ml Output Hemodialysis UF 0 ml # Voids 1 # Bowel Movements 1 Laboratory Tests Test 07/05/20 16:52 07/05/20 16:56 07/05/20 23:44 07/06/20 02:50 Activated Partial Thromboplast Time 32 SEC (23-33) 55 SEC (23-33) H Troponin I 0.092 ng/mL (0.000-0.056) 0.216 ng/mL (0.000-0.056) White Blood Count 9.3 K/UL (4.8-10.8) Red Blood Count 2.63 M/UL (4.70-6.10) L Hemoglobin 7.4 G/DL (14.2-18.0) L Hematocrit 22.7 % (42.0-52.0) L Mean Corpuscular Volume 86 FL (80-99) Mean Corpuscular Hemoglobin 28.3 PG (27.0-31.0) Mean Corpuscular Hemoglobin Concent 32.7 G/DL (32.0-36.0) Red Cell Distribution Width 13.4 % (11.6-14.8) Platelet Count 92 K/UL (150-450) L Mean Platelet Volume 6.1 FL (6.5-10.1) L Neutrophils (%) (Auto) % (45.0-75.0) Lymphocytes (%) (Auto) % (20.0-45.0) Monocytes (%) (Auto) % (1.0-10.0) Eosinophils (%) (Auto) % (0.0-3.0) Basophils (%) (Auto) % (0.0-2.0) Neutrophils % (Manual) Pending Lymphocytes % (Manual) Pending Platelet Estimate Pending Platelet Morphology Pending Sodium Level 138 MMOL/L (136-145) Potassium Level 3.8 MMOL/L (3.5-5.1) Chloride Level 99 MMOL/L (98-107) Carbon Dioxide Level 11 MMOL/L (21-32) L Anion Gap 28 mmol/L (5-15) H Blood Urea Nitrogen 116 mg/dL (7-18) H Creatinine 10.1 MG/DL (0.55-1.30) H Estimat Glomerular Filtration Rate 5.3 mL/min (>60) Glucose Level 111 MG/DL (74-106) H Calcium Level 7.5 MG/DL (8.5-10.1) L Pro-B-Type Natriuretic Peptide > 94733 pg/mL (0-125) H Thyroid Stimulating Hormone (TSH) 0.838 uiU/mL (0.358-3.740) Free Thyroxine 1.54 NG/DL (0.76-1.46) H Digoxin Level 1.3 NG/ML (0.5-2.0) Test 07/06/20 07:13 Activated Partial Thromboplast Time 85 SEC (23-33) H Microbiology Date/Time Source Procedure Growth Status 07/04/20 15:44 Blood Blood Culture - Preliminary Gram Negative Morgan Resulted 07/04/20 15:30 Blood Blood Culture - Preliminary Staphylococcus Aureus Gram Negative Morgan Resulted 07/04/20 14:49 Nasopharynx SARS-CoV-2 RdRp Gene Assay - Final Complete 07/04/20 19:00 Rectum Received Objective HEAD AND NECK: Shows positive JVD. LUNGS: Decreased breath sounds. CARDIOVASCULAR: Shows irregularly irregular, tachycardic S1 and S2. ABDOMEN: Soft. EXTREMITIES: No pitting edema. Juaquin Tomlin MD Jul 06, 2020 12:07
--- NOTE | 2020-07-06 12:19 | Cardiac Electrophysiology PN ---
Assessment/Plan Assessment/Plan 1. Atrial fibrillation, rapid ventricular response with heart rate of 180s. Got 0.5 mg IV digoxin once. Digoxin level is 1.3 Change Cardizem drip to 60 po tid Echocardiogram EF 65%. Change heparin drip to Eliquis 2.5 bid 2. Troponin leak likely due to renal failure and atrial fib with RVR. ECho Nl EF 3. Profound anemia, hemoglobin of only 6. S/P 1 unit blood transfusion. Could be due to renal failure. Stool OB pending 4. Acute on chronic renal failure in a patient with history of kidney transplant. The patient currently is on hemodialysis under management of Dr. Hyde. 5. Thrombocytopenia. 6. History of hypertension. 7. History of left arm fistula. ORLIN RN Subjective Subjective In ICU. Converted to SR on CArdizem drip. Alert in NAD Objective Last 24 Hour Vital Signs Date Time Temp Pulse Resp B/P (MAP) Pulse Ox O2 Delivery O2 Flow Rate FiO2 07/06/20 10:00 78 18 114/58 (76) 100 07/06/20 09:00 78 21 104/52 (69) 100 07/06/20 08:00 97.6 85 23 93/51 (65) 100 07/06/20 08:00 Nasal Cannula 2.0 07/06/20 07:00 83 18 92/56 (68) 100 07/06/20 06:00 82 15 108/57 (74) 100 07/06/20 05:00 81 14 91/60 (70) 100 07/06/20 04:00 Nasal Cannula 3.0 07/06/20 04:00 85 07/06/20 04:00 98.5 82 19 103/62 (76) 100 07/06/20 03:00 84 20 99/60 (73) 100 07/06/20 02:00 85 15 119/53 (75) 100 07/06/20 01:00 84 17 102/54 (70) 100 07/06/20 00:00 98.3 88 23 106/69 (81) 100 07/06/20 00:00 90 07/06/20 00:00 Nasal Cannula 3.0 07/05/20 23:00 86 17 89/59 (69) 100 07/05/20 22:00 92 17 96/58 (71) 100 07/05/20 21:00 90 17 98/57 (71) 100 07/05/20 20:00 Nasal Cannula 3.0 07/05/20 20:00 98.6 104 23 90/56 (67) 100 07/05/20 20:00 119 07/05/20 19:00 106 23 76/50 (59) 100 07/05/20 16:38 140 125/64 07/05/20 16:00 97.5 150 20 131/58 (82) 100 07/05/20 16:00 126 07/05/20 16:00 Nasal Cannula 3.0 07/05/20 15:31 156 Intake and Output 07/05/20 07/06/20 19:00 07:00 Intake Total 403.878 ml 705.73409 ml Output Total 0 ml Balance 403.878 ml 705.74493 ml Intake Oral 200 ml 240 ml IV Total 203.878 ml 465.60299 ml Output Hemodialysis UF 0 ml # Voids 1 # Bowel Movements 1 Laboratory Tests Test 07/05/20 16:52 07/05/20 16:56 07/05/20 23:44 07/06/20 02:50 Activated Partial Thromboplast Time 32 SEC (23-33) 55 SEC (23-33) H Troponin I 0.092 ng/mL (0.000-0.056) 0.216 ng/mL (0.000-0.056) White Blood Count 9.3 K/UL (4.8-10.8) Red Blood Count 2.63 M/UL (4.70-6.10) L Hemoglobin 7.4 G/DL (14.2-18.0) L Hematocrit 22.7 % (42.0-52.0) L Mean Corpuscular Volume 86 FL (80-99) Mean Corpuscular Hemoglobin 28.3 PG (27.0-31.0) Mean Corpuscular Hemoglobin Concent 32.7 G/DL (32.0-36.0) Red Cell Distribution Width 13.4 % (11.6-14.8) Platelet Count 92 K/UL (150-450) L Mean Platelet Volume 6.1 FL (6.5-10.1) L Neutrophils (%) (Auto) % (45.0-75.0) Lymphocytes (%) (Auto) % (20.0-45.0) Monocytes (%) (Auto) % (1.0-10.0) Eosinophils (%) (Auto) % (0.0-3.0) Basophils (%) (Auto) % (0.0-2.0) Neutrophils % (Manual) Pending Lymphocytes % (Manual) Pending Platelet Estimate Pending Platelet Morphology Pending Sodium Level 138 MMOL/L (136-145) Potassium Level 3.8 MMOL/L (3.5-5.1) Chloride Level 99 MMOL/L (98-107) Carbon Dioxide Level 11 MMOL/L (21-32) L Anion Gap 28 mmol/L (5-15) H Blood Urea Nitrogen 116 mg/dL (7-18) H Creatinine 10.1 MG/DL (0.55-1.30) H Estimat Glomerular Filtration Rate 5.3 mL/min (>60) Glucose Level 111 MG/DL (74-106) H Calcium Level 7.5 MG/DL (8.5-10.1) L Pro-B-Type Natriuretic Peptide > 03502 pg/mL (0-125) H Thyroid Stimulating Hormone (TSH) 0.838 uiU/mL (0.358-3.740) Free Thyroxine 1.54 NG/DL (0.76-1.46) H Digoxin Level 1.3 NG/ML (0.5-2.0) Test 07/06/20 07:13 Activated Partial Thromboplast Time 85 SEC (23-33) H Microbiology Date/Time Source Procedure Growth Status 07/04/20 15:44 Blood Blood Culture - Preliminary Gram Negative Morgan Resulted 07/04/20 15:30 Blood Blood Culture - Preliminary Staphylococcus Aureus Gram Negative Morgan Resulted 07/04/20 14:49 Nasopharynx SARS-CoV-2 RdRp Gene Assay - Final Complete 07/04/20 19:00 Rectum Received Objective HEAD AND NECK: Shows positive JVD. LUNGS: Decreased breath sounds. CARDIOVASCULAR: Shows irregularly irregular, tachycardic S1 and S2. ABDOMEN: Soft. EXTREMITIES: No pitting edema. Juaquin Tomlin MD Jul 06, 2020 12:19
--- NOTE | 2020-07-06 13:01 | General Progress Note ---
Assessment/Plan Problem List: (1) ESRD (end stage renal disease) on dialysis ICD Codes: N18.6 - End stage renal disease; Z99.2 - Dependence on renal dialysis SNOMED: 764628530 (2) Metabolic acidosis ICD Codes: E87.2 - Acidosis SNOMED: 62540691 (3) Basal cell carcinoma ICD Codes: C44.91 - Basal cell carcinoma of skin, unspecified SNOMED: 461354175 Qualifiers: Qualified Codes: C44.41 - Basal cell carcinoma of skin of scalp and neck (4) Profound anemia ICD Codes: D64.9 - Anemia, unspecified SNOMED: 091634691 Qualifiers: Qualified Codes: D64.9 - Anemia, unspecified (5) Elevated troponin ICD Codes: R79.89 - Other specified abnormal findings of blood chemistry SNOMED: 241261299, 814456428, 252207518 (6) Status post kidney transplant ICD Codes: Z94.0 - Kidney transplant status SNOMED: 656051404, 17709310, 23501696 Assessment/Plan: abxs HD today discussed with Dr Tomlin and RN follow labs continue Epogen an IV Iron Subjective Allergies: Coded Allergies: ASPIRIN (Verified Allergy, Unknown, 07/04/20) Subjective seen in ICU better Objective Last 24 Hour Vital Signs Date Time Temp Pulse Resp B/P (MAP) Pulse Ox O2 Delivery O2 Flow Rate FiO2 07/06/20 10:00 78 18 114/58 (76) 100 07/06/20 09:00 78 21 104/52 (69) 100 07/06/20 08:00 97.6 85 23 93/51 (65) 100 07/06/20 08:00 Nasal Cannula 2.0 07/06/20 07:00 83 18 92/56 (68) 100 07/06/20 06:00 82 15 108/57 (74) 100 07/06/20 05:00 81 14 91/60 (70) 100 07/06/20 04:00 Nasal Cannula 3.0 07/06/20 04:00 85 07/06/20 04:00 98.5 82 19 103/62 (76) 100 07/06/20 03:00 84 20 99/60 (73) 100 07/06/20 02:00 85 15 119/53 (75) 100 07/06/20 01:00 84 17 102/54 (70) 100 07/06/20 00:00 98.3 88 23 106/69 (81) 100 07/06/20 00:00 90 07/06/20 00:00 Nasal Cannula 3.0 07/05/20 23:00 86 17 89/59 (69) 100 07/05/20 22:00 92 17 96/58 (71) 100 07/05/20 21:00 90 17 98/57 (71) 100 07/05/20 20:00 Nasal Cannula 3.0 07/05/20 20:00 98.6 104 23 90/56 (67) 100 07/05/20 20:00 119 07/05/20 19:00 106 23 76/50 (59) 100 07/05/20 16:38 140 125/64 07/05/20 16:00 97.5 150 20 131/58 (82) 100 07/05/20 16:00 126 07/05/20 16:00 Nasal Cannula 3.0 07/05/20 15:31 156 Intake and Output 07/05/20 07/06/20 19:00 07:00 Intake Total 403.878 ml 705.84966 ml Output Total 0 ml Balance 403.878 ml 705.02090 ml Intake Oral 200 ml 240 ml IV Total 203.878 ml 465.73428 ml Output Hemodialysis UF 0 ml # Voids 1 # Bowel Movements 1 Laboratory Tests 07/05/20 16:52: Activated Partial Thromboplast Time 32 07/05/20 16:56: Troponin I 0.092H 07/05/20 23:44: Activated Partial Thromboplast Time 55H 07/06/20 02:50: Troponin I 0.216H, White Blood Count 9.3, Red Blood Count 2.63L, Hemoglobin 7.4L , Hematocrit 22.7L, Mean Corpuscular Volume 86, Mean Corpuscular Hemoglobin 28.3 , Mean Corpuscular Hemoglobin Concent 32.7, Red Cell Distribution Width 13.4, Platelet Count 92L, Mean Platelet Volume 6.1L, Neutrophils (%) (Auto) , Lymphocytes (%) (Auto) , Monocytes (%) (Auto) , Eosinophils (%) (Auto) , Basophils (%) (Auto) , Neutrophils % (Manual) [Pending], Lymphocytes % (Manual) [Pending], Platelet Estimate [Pending], Platelet Morphology [Pending], Sodium Level 138, Potassium Level 3.8, Chloride Level 99, Carbon Dioxide Level 11L, Anion Gap 28H, Blood Urea Nitrogen 116H, Creatinine 10.1H, Estimat Glomerular Filtration Rate 5.3, Glucose Level 111H, Calcium Level 7.5L, Pro-B-Type Natriuretic Peptide > 20623W, Thyroid Stimulating Hormone (TSH) 0.838, Free Thyroxine 1.54H, Digoxin Level 1.3 07/06/20 07:13: Activated Partial Thromboplast Time 85H Height (Feet): 5 Height (Inches): 7.00 Weight (Pounds): 131 Cardiovascular: normal rate Respiratory/Chest: lungs clear Edema: no edema noted Generalized Raulito Hyde MD Jul 06, 2020 13:01
[2020-07-06 13:58] LABS: APPEARANCE,URINE CLEAR; BILIRUBIN, URINE NEGATIVE (NEGATIVE); COLOR,URINE PALE YELLOW; GLUCOSE, URINE (UA) 2+ (NEGATIVE); KETONES,URINE 2+ (NEGATIVE); LEUKOCYTE ESTERASE ,URINE 3+ (NEGATIVE); NITRITE,URINE NEGATIVE (NEGATIVE); PH,URINE 6 (4.5-8.0); PROTEIN,URINE 3+ (NEGATIVE); UROBILINOGEN,URINE NORMAL MG/DL (0.0-1.0)
[2020-07-06] MEDS ORDERED: dilTIAZem HCl 60mg tab ORAL SCH (14:00)
[2020-07-06] MEDS ORDERED: Tubing IV Secondary IV ONE (14:19)
[2020-07-06] MEDS ORDERED: Tubing Blood Filter IV ONE (14:19)
[2020-07-06] MEDS ORDERED: NS 275ml ONE (14:19)
--- NOTE | 2020-07-06 14:44 | Consultation ---
History of Present Illness General Date patient seen: Jul 06, 2020 Reason for Hospitalization: Chest Pain Present Illness HPI 55-year-old male hemodialysis patient presented to [facility] for chest pain weakness and admitted to the intensive care unit further care and management. On admission identified to have a large abnormal wound on his right forehead. Patient states that there was something there approximately a week ago and he was squeezing it out in front fortunately worsened and now has become a large open wound. Given the likelihood and evaluation of it there is a potential this was cancer the patient had been manipulating and now infected. Surgery was called to evaluate and assist with care. Patient seen, patient evaluated, chart reviewed Allergies: Coded Allergies: ASPIRIN (Verified Allergy, Unknown, 07/04/20) COVID-19 Screening Contact w/high risk pt: No Experienced COVID-19 symptoms?: No Medication History Scheduled Carvedilol (Coreg), Unknown Dose ORAL EVERY 12 HOURS, (Reported) Patient History History Provided By: Patient, Medical Record, PMD Healthcare decision maker Resuscitation status Advanced Directive on File Past Medical/Surgical History Past Medical/Surgical History: (1) Elevated troponin (2) Acute renal failure (3) Basal cell carcinoma (4) Metabolic acidosis (5) Profound anemia (6) Chest pain (7) cp (8) ESRD (end stage renal disease) on dialysis Review of Systems Review of Symptoms General ROS: no weight loss or fever Psychological ROS: no depression or mood changes, no memory loss Ophthalmic ROS: no visual changes or eye irritation ENT ROS: no nasal congestion, hearing loss, dizziness Allergy and Immunology ROS: no allergic symptoms or urticaria Hematological and Lymphatic ROS: no swollen glands, unusual bleeding or bruising Endocrine ROS: no polyuria, polydipsia, weight changes, temperature intolerance Respiratory ROS: no cough, shortness of breath, or wheezing Cardiovascular ROS: no chest pain or dyspnea on exertion Gastrointestinal ROS: denies abdominal pain, bright red blood in stool. Musculoskeletal ROS: no myalgias or arthralgias Neurological ROS: no TIA or stroke symptoms Dermatological ROS: no new or changing skin lesions, rashes or pruritis Physical Exam Physical Exam General appearance: alert, cooperative, no distress, appears stated age Head: Normocephalic, without obvious abnormality, atraumatic right forehead open wound Eyes: conjunctivae/corneas clear. PERRL, EOM's intact. Fundi benign Throat: Lips, mucosa, and tongue normal. Teeth and gums normal Neck: supple, symmetrical, trachea midline, no adenopathy, thyroid: not enlarged, symmetric, no tenderness/mass/nodules, no carotid bruit and no JVD Lungs: clear to auscultation bilaterally Heart: regular rate and rhythm, S1, S2 normal, no murmur, click, rub or gallop Abdomen: soft, non-tender. Bowel sounds normal. No masses, no organomegaly Extremities: extremities normal, atraumatic, no cyanosis or edema Pulses: 2+ and symmetric Skin: Skin color, texture, turgor normal. No rashes or lesions Neurologic: Grossly normal Last 24 Hour Vital Signs Date Time Temp Pulse Resp B/P (MAP) Pulse Ox O2 Delivery O2 Flow Rate FiO2 07/06/20 13:33 80 107/57 07/06/20 10:00 78 18 114/58 (76) 100 07/06/20 09:00 78 21 104/52 (69) 100 07/06/20 08:00 97.6 85 23 93/51 (65) 100 07/06/20 08:00 Nasal Cannula 2.0 07/06/20 07:00 83 18 92/56 (68) 100 07/06/20 06:00 82 15 108/57 (74) 100 07/06/20 05:00 81 14 91/60 (70) 100 07/06/20 04:00 Nasal Cannula 3.0 07/06/20 04:00 85 07/06/20 04:00 98.5 82 19 103/62 (76) 100 07/06/20 03:00 84 20 99/60 (73) 100 07/06/20 02:00 85 15 119/53 (75) 100 07/06/20 01:00 84 17 102/54 (70) 100 07/06/20 00:00 98.3 88 23 106/69 (81) 100 07/06/20 00:00 90 07/06/20 00:00 Nasal Cannula 3.0 07/05/20 23:00 86 17 89/59 (69) 100 07/05/20 22:00 92 17 96/58 (71) 100 07/05/20 21:00 90 17 98/57 (71) 100 07/05/20 20:00 Nasal Cannula 3.0 07/05/20 20:00 98.6 104 23 90/56 (67) 100 07/05/20 20:00 119 07/05/20 19:00 106 23 76/50 (59) 100 07/05/20 16:38 140 125/64 07/05/20 16:00 97.5 150 20 131/58 (82) 100 07/05/20 16:00 126 07/05/20 16:00 Nasal Cannula 3.0 07/05/20 15:31 156 Intake and Output 07/05/20 07/06/20 19:00 07:00 Intake Total 403.878 ml 705.23362 ml Output Total 0 ml Balance 403.878 ml 705.29621 ml Intake Oral 200 ml 240 ml IV Total 203.878 ml 465.75440 ml Output Hemodialysis UF 0 ml # Voids 1 # Bowel Movements 1 Laboratory Tests Test 07/05/20 16:52 07/05/20 16:56 07/05/20 23:44 07/06/20 02:50 Activated Partial Thromboplast Time 32 SEC (23-33) 55 SEC (23-33) H Troponin I 0.092 ng/mL (0.000-0.056) 0.216 ng/mL (0.000-0.056) White Blood Count 9.3 K/UL (4.8-10.8) Red Blood Count 2.63 M/UL (4.70-6.10) L Hemoglobin 7.4 G/DL (14.2-18.0) L Hematocrit 22.7 % (42.0-52.0) L Mean Corpuscular Volume 86 FL (80-99) Mean Corpuscular Hemoglobin 28.3 PG (27.0-31.0) Mean Corpuscular Hemoglobin Concent 32.7 G/DL (32.0-36.0) Red Cell Distribution Width 13.4 % (11.6-14.8) Platelet Count 92 K/UL (150-450) L Mean Platelet Volume 6.1 FL (6.5-10.1) L Neutrophils (%) (Auto) % (45.0-75.0) Lymphocytes (%) (Auto) % (20.0-45.0) Monocytes (%) (Auto) % (1.0-10.0) Eosinophils (%) (Auto) % (0.0-3.0) Basophils (%) (Auto) % (0.0-2.0) Differential Total Cells Counted 100 Neutrophils % (Manual) 90 % (45-75) H Lymphocytes % (Manual) 2 % (20-45) L Monocytes % (Manual) 7 % (1-10) Eosinophils % (Manual) 1 % (0-3) Basophils % (Manual) 0 % (0-2) Band Neutrophils 0 % (0-8) Platelet Estimate Adequate Platelet Morphology Normal Hypochromasia 1+ Ovalocytes Rare Roger Cells 1+ Schistocytes Occasional Sodium Level 138 MMOL/L (136-145) Potassium Level 3.8 MMOL/L (3.5-5.1) Chloride Level 99 MMOL/L (98-107) Carbon Dioxide Level 11 MMOL/L (21-32) L Anion Gap 28 mmol/L (5-15) H Blood Urea Nitrogen 116 mg/dL (7-18) H Creatinine 10.1 MG/DL (0.55-1.30) H Estimat Glomerular Filtration Rate 5.3 mL/min (>60) Glucose Level 111 MG/DL (74-106) H Calcium Level 7.5 MG/DL (8.5-10.1) L Pro-B-Type Natriuretic Peptide > 90772 pg/mL (0-125) H Thyroid Stimulating Hormone (TSH) 0.838 uiU/mL (0.358-3.740) Free Thyroxine 1.54 NG/DL (0.76-1.46) H Digoxin Level 1.3 NG/ML (0.5-2.0) Test 07/06/20 07:13 07/06/20 13:36 Activated Partial Thromboplast Time 85 SEC (23-33) H Urine Color Pale yellow Urine Appearance Clear Urine pH 6 (4.5-8.0) Urine Specific Harrison 1.010 (1.005-1.035) Urine Protein 3+ (NEGATIVE) H Urine Glucose (UA) 2+ (NEGATIVE) H Urine Ketones 2+ (NEGATIVE) H Urine Blood 4+ (NEGATIVE) H Urine Nitrite Negative (NEGATIVE) Urine Bilirubin Negative (NEGATIVE) Urine Urobilinogen Normal MG/DL (0.0-1.0) Urine Leukocyte Esterase 3+ (NEGATIVE) H Urine RBC 10-15 /HPF (0 - 0) H Urine WBC 15-20 /HPF (0 - 0) H Urine Squamous Epithelial Cells Occasional /LPF Urine Bacteria Few /HPF (NONE) Height (Feet): 5 Height (Inches): 7.00 Weight (Pounds): 131 Medications Current Medications Medications (Trade) Dose Ordered Sig/Marco A Route PRN Reason Start Time Stop Time Status Last Admin Dose Admin Acetaminophen (Tylenol) 650 mg Q4H PRN ORAL Mild Pain (Pain Scale 1-3) 07/05/20 17:00 08/03/20 16:59 Apixaban (Eliquis) 2.5 mg BID ORAL 07/06/20 18:00 10/04/20 17:59 Cefepime HCl 500 mg/Dextrose 55 ml @ 110 mls/hr Q24H IVPB 07/05/20 21:00 07/12/20 20:59 07/05/20 20:25 Dextrose (Dextrose 50%) 25 ml Q30M PRN IV Hypoglycemia 07/05/20 17:15 10/02/20 18:44 Dextrose (Dextrose 50%) 50 ml Q30M PRN IV Hypoglycemia 07/05/20 17:00 10/02/20 16:59 Diltiazem HCl (Cardizem Tab) 60 mg EVERY 8 HOURS ORAL 07/06/20 14:00 08/05/20 13:59 07/06/20 13:33 Epoetin Mdoe (Epoetin Mode(ESRD on dialysis)) 8,000 unit THU-THU-THU SUBQ 07/06/20 21:00 10/02/20 20:59 Heparin Sodium (Porcine) (Heparin Sod 1000 units/ml 10ml) 500 unit ONCE ONCE IV 07/07/20 13:15 07/07/20 13:16 Iron Sucrose 100 mg/Sodium Chloride 60 ml @ 240 mls/hr BEDTIME IV 07/06/20 21:00 07/10/20 21:14 Morphine Sulfate (Morphine Sulfate) 2 mg Q4H PRN IVP pain 4-10 07/05/20 17:00 07/12/20 16:59 Nitroglycerin (Ntg) 0.4 mg Q5M PRN SL Prn Chest Pain 07/05/20 17:00 08/04/20 16:59 Polyethylene Glycol (Miralax) 17 gm DAILYPRN PRN ORAL Constipation 07/05/20 17:00 08/03/20 16:59 Sodium Chloride 1,000 ml @ 500 mls/hr Q2H PRN IVLG sbp<90 during hd 07/07/20 13:07 08/06/20 13:06 Vancomycin HCl (Vanco pharmacy to dose) 1 ea DAILY PRN MISC Per rx protocol 07/05/20 17:00 08/04/20 16:59 Vitamin B Complex/ Vit C/Folic Acid (Nephrovite) 1 tab DAILY ORAL 07/06/20 09:00 08/03/20 19:59 07/06/20 08:15 Zolpidem Tartrate (Ambien) 5 mg HSPRN PRN ORAL Insomnia 07/05/20 21:00 07/11/20 20:59 Assessment/Plan Problem List: (1) Elevated troponin ICD Codes: R79.89 - Other specified abnormal findings of blood chemistry SNOMED: 618487236, 789705856, 655000467 (2) Acute renal failure ICD Codes: N17.9 - Acute kidney failure, unspecified SNOMED: 33592897 Qualifiers: Qualified Codes: N17.9 - Acute kidney failure, unspecified (3) Basal cell carcinoma Assessment & Plan: Right forehead scalp open wound potential basal cell carcinoma ulcerated raised edges significant slough in the center. Infected. Recommend local wound care and infection control. Will considerations for biopsy versus excisional biopsy with flap. Need medical optimization resuscitation first. Continue with current medical care. Discussed with patient and PCP. Will consider plans for local control upon improvement. Thank you fine partition patient's care. Wash wound daily with normal saline. Apply dressings 3 times daily. ICD Codes: C44.91 - Basal cell carcinoma of skin, unspecified SNOMED: 811619405 Qualifiers: Qualified Codes: C44.41 - Basal cell carcinoma of skin of scalp and neck (4) Metabolic acidosis ICD Codes: E87.2 - Acidosis SNOMED: 01881490 (5) Profound anemia ICD Codes: D64.9 - Anemia, unspecified SNOMED: 148360848 Qualifiers: Qualified Codes: D64.9 - Anemia, unspecified (6) Chest pain ICD Codes: R07.9 - Chest pain, unspecified SNOMED: 11347096 Qualifiers: Qualified Codes: R07.9 - Chest pain, unspecified (7) ESRD (end stage renal disease) on dialysis ICD Codes: N18.6 - End stage renal disease; Z99.2 - Dependence on renal dialysis SNOMED: 266307424 (8) Mathew Brown Jul 06, 2020 14:44
[2020-07-06] MEDS ORDERED: Nitroglycerin Subl 0.4mg tab SL PRN (15:30)
[2020-07-06] MEDS ORDERED: Morphine Sulfate 2mg/ml Inj(IV/IM USE ONLY) IVP PRN (16:00)
[2020-07-06] MEDS ORDERED: Miralax 17gm pkt ORAL PRN (17:00)
[2020-07-06] MEDS ORDERED: Eliquis 2.5mg tablet ORAL SCH (18:00)
[2020-07-06] MEDS: Eliquis 2.5mg tablet ORAL SCH (18:10)
[2020-07-06] MEDS ORDERED: Iron Sucrose 100 MG in NS 55 ML IV SCH (21:00)
[2020-07-06] MEDS ORDERED: Zolpidem 5mg tab ORAL PRN (21:00)
[2020-07-06] MEDS ORDERED: Epoetin Alfa-EPBX(ESRD on dialysis)4000 units/ml vial SUBQ SCH ×2 (21:00)
[2020-07-06] MEDS: Cefepime HCl 500 MG in D5W 55 ML IVPB SCH (23:52)
[2020-07-06] MEDS: Iron Sucrose 100 MG in NS 55 ML IV SCH (23:53)
[2020-07-07] VITALS: BP 153/60
[2020-07-07] MEDS: dilTIAZem HCl 60mg tab ORAL SCH ×4 (00:35→21:11)
[2020-07-07 04:00] VITALS: BP 118/64
[2020-07-07 08:00] VITALS: BP 113/63
[2020-07-07] MEDS ORDERED: NS 275ml ONE (08:25)
[2020-07-07] MEDS ORDERED: Tubing IV Secondary IV ONE (08:25)
[2020-07-07] MEDS ORDERED: Heparin Sod 1000 units/ml 10ml IV PRN (09:00)
[2020-07-07] MEDS ORDERED: Nephrovite tab (Rena-Vite) ORAL SCH (09:00)
[2020-07-07] MEDS: Eliquis 2.5mg tablet ORAL SCH ×2 (09:12→18:00)
[2020-07-07 11:45] VITALS: BP 112/57
[2020-07-07] MEDS ORDERED: Heparin Sod 1000 units/ml 10ml IV ONE (13:15)
--- NOTE | 2020-07-07 13:54 | General Progress Note ---
Assessment/Plan Problem List: (1) ESRD (end stage renal disease) on dialysis ICD Codes: N18.6 - End stage renal disease; Z99.2 - Dependence on renal dialysis SNOMED: 284911304 (2) Metabolic acidosis ICD Codes: E87.2 - Acidosis SNOMED: 14313453 (3) Basal cell carcinoma Assessment & Plan: questionable ICD Codes: C44.91 - Basal cell carcinoma of skin, unspecified SNOMED: 717442467 Qualifiers: Qualified Codes: C44.41 - Basal cell carcinoma of skin of scalp and neck (4) Profound anemia ICD Codes: D64.9 - Anemia, unspecified SNOMED: 907856369 Qualifiers: Qualified Codes: D64.9 - Anemia, unspecified (5) Elevated troponin ICD Codes: R79.89 - Other specified abnormal findings of blood chemistry SNOMED: 315561624, 400758512, 181073823 (6) Status post kidney transplant ICD Codes: Z94.0 - Kidney transplant status SNOMED: 209208398, 96462269, 04706070 Assessment/Plan: start Rocaltrol abxs HD thursday follow labs continue Epogen an IV Iron Subjective Allergies: Coded Allergies: ASPIRIN (Verified Allergy, Unknown, 07/04/20) Subjective feels better Objective Last 24 Hour Vital Signs Date Time Temp Pulse Resp B/P (MAP) Pulse Ox O2 Delivery O2 Flow Rate FiO2 07/07/20 12:16 98.9 07/07/20 11:45 100.6 84 18 112/57 (75) 97 07/07/20 08:00 100.6 83 18 113/63 (80) 98 07/07/20 06:51 95 118/64 07/07/20 04:00 95 07/07/20 04:00 100.6 91 14 118/64 (82) 97 07/07/20 00:35 102 153/60 07/07/20 00:00 98.9 102 16 153/60 (91) 99 07/07/20 00:00 112 07/06/20 20:00 87 07/06/20 20:00 98.8 81 16 133/67 (89) 100 07/06/20 16:00 98.0 85 16 134/65 (88) 99 07/06/20 16:00 84 07/06/20 14:00 80 18 125/62 (83) 100 Intake and Output 07/06/20 07/07/20 19:00 07:00 Intake Total 583.850 ml 100 ml Output Total 240 ml 0 ml Balance 343.850 ml 100 ml Intake Oral 460 ml 100 ml IV Total 123.850 ml Output Urine Total 240 ml Hemodialysis UF 0 ml # Voids 1 100 # Bowel Movements 1 Laboratory Tests 07/07/20 07:45: Stool Occult Blood [Pending] Height (Feet): 5 Height (Inches): 7.00 Weight (Pounds): 130 Cardiovascular: normal rate Respiratory/Chest: lungs clear Edema: no edema noted Generalized Raulito Hyde MD Jul 07, 2020 13:54
[2020-07-07] MEDS ORDERED: Calcitriol 0.5mcg Cap ORAL SCH (14:00)
--- NOTE | 2020-07-07 14:20 | Cardiac Electrophysiology PN ---
Assessment/Plan Assessment/Plan 1. Atrial fibrillation, rapid ventricular response with heart rate of 180s. Got 0.5 mg IV digoxin once. Digoxin level is 1.3 On Cardizem 60 po tid Echocardiogram EF 65%. On Eliquis 2.5 bid. Add Dig 0.125 po daily 2. Troponin leak likely due to renal failure and atrial fib with RVR. ECho Nl EF 3. Profound anemia, hemoglobin of only 6. S/P 2 unit blood transfusion. Could be due to renal failure. Stool OB pending 4. Acute on chronic renal failure in a patient with history of kidney transplant. The patient currently is on hemodialysis under management of Dr. Hyde. 5. Thrombocytopenia. 6. History of hypertension. 7. History of left arm fistula. ORLIN RN Subjective Subjective On tele in SR on Cardizem po. Alert in NAD. Stool OB pending. Had 2 PRBCs. Had HD 2 days in a row. Had T 101.7 Objective Last 24 Hour Vital Signs Date Time Temp Pulse Resp B/P (MAP) Pulse Ox O2 Delivery O2 Flow Rate FiO2 07/07/20 12:16 98.9 07/07/20 11:45 100.6 84 18 112/57 (75) 97 07/07/20 08:00 100.6 83 18 113/63 (80) 98 07/07/20 06:51 95 118/64 07/07/20 04:00 95 07/07/20 04:00 100.6 91 14 118/64 (82) 97 07/07/20 00:35 102 153/60 07/07/20 00:00 98.9 102 16 153/60 (91) 99 07/07/20 00:00 112 07/06/20 20:00 87 07/06/20 20:00 98.8 81 16 133/67 (89) 100 07/06/20 16:00 98.0 85 16 134/65 (88) 99 07/06/20 16:00 84 Intake and Output 07/06/20 07/07/20 19:00 07:00 Intake Total 583.850 ml 100 ml Output Total 240 ml 0 ml Balance 343.850 ml 100 ml Intake Oral 460 ml 100 ml IV Total 123.850 ml Output Urine Total 240 ml Hemodialysis UF 0 ml # Voids 1 100 # Bowel Movements 1 Laboratory Tests Test 07/07/20 07:45 Stool Occult Blood Pending Microbiology Date/Time Source Procedure Growth Status 07/04/20 15:44 Blood Blood Culture - Final Escherichia Coli Complete 07/04/20 15:30 Blood Blood Culture - Final Staphylococcus Aureus Escherichia Coli Complete 07/04/20 19:00 Nasal Nares MRSA Culture - Final Staphylococcus Aureus - Mrsa Complete 07/04/20 14:49 Nasopharynx SARS-CoV-2 RdRp Gene Assay - Final Complete 07/06/20 13:36 Urine,Clean Catch Urine Culture - Preliminary NO GROWTH Resulted 07/04/20 19:00 Rectum - Final NO CARBAPENEM-RESISTANT ENTEROBACTERI... Complete 07/04/20 19:00 Rectum VRE Culture - Final NO VANCOMYCIN RESISTANT ENTEROCOCCUS ... Complete Objective HEAD AND NECK: Shows positive JVD. LUNGS: Decreased breath sounds. CARDIOVASCULAR: Shows irregularly irregular, tachycardic S1 and S2. ABDOMEN: Soft. EXTREMITIES: No pitting edema. Juaquin Tomlin MD Jul 07, 2020 14:20
[2020-07-07 16:00] VITALS: BP 143/61
[2020-07-07 20:00] VITALS: BP 118/59
[2020-07-07] MEDS: Cefepime HCl 500 MG in D5W 55 ML IVPB SCH (20:21)
[2020-07-07] MEDS: Iron Sucrose 100 MG in NS 55 ML IV SCH (22:05)
[2020-07-08] VITALS: BP 105/56
[2020-07-08 04:00] VITALS: BP 113/63
[2020-07-08] MEDS: dilTIAZem HCl 60mg tab ORAL SCH ×3 (05:07→22:00)
[2020-07-08 08:00] VITALS: BP 113/56
[2020-07-08] MEDS ORDERED: Morphine Sulfate 2mg/ml Inj(IV/IM USE ONLY) IVP PRN (08:00)
[2020-07-08] MEDS ORDERED: Miralax 17gm pkt ORAL PRN (08:30)
--- NOTE | 2020-07-08 08:57 | Surgery Progress Note ---
Surgery Progress Note Subjective Additional Comments doing well non excisional wound debridement at bedside. wound looks better. Objective Last 24 Hour Vital Signs Date Time Temp Pulse Resp B/P (MAP) Pulse Ox O2 Delivery O2 Flow Rate FiO2 07/08/20 08:00 98.7 74 16 113/56 (75) 96 07/08/20 05:07 63 113/63 07/08/20 04:00 99.0 66 18 113/63 (80) 96 07/08/20 04:00 63 07/08/20 00:00 65 07/08/20 00:00 97.5 67 18 105/56 (72) 97 07/07/20 21:41 98.4 07/07/20 21:11 74 118/59 07/07/20 20:00 100.9 74 18 118/59 (78) 98 07/07/20 20:00 70 07/07/20 16:00 91 07/07/20 16:00 98.9 94 16 143/61 (88) 98 07/07/20 14:00 84 112/57 07/07/20 12:00 77 07/07/20 11:45 100.6 84 18 112/57 (75) 97 I&O Intake and Output 07/07/20 07/08/20 19:00 07:00 Intake Total 640 ml 100 ml Balance 640 ml 100 ml Intake Oral 640 ml 100 ml # Voids 2 Dressing: saturated Wound: other Cardiovascular: RSR Respiratory: clear Abdomen: soft, flat, non-tender, present bowel sounds Extremities: no edema, no tenderness, no cyanosis Plan Problems: (1) Elevated troponin (2) Acute renal failure (3) Basal cell carcinoma Assessment & Plan: Right forehead scalp open wound potential basal cell carcinoma ulcerated raised edges significant slough in the center. Infected. Recommend local wound care and infection control. Will considerations for biopsy versus excisional biopsy with flap. Need medical optimization resuscitation first. Continue with current medical care. Discussed with patient and PCP. Will consider plans for local control upon improvement. Thank you fine partition patient's care. Wash wound daily with normal saline. Apply dressings 3 times daily. non excisional debridement at bedside wound much spice cleaner dressing TID gauze (4) Metabolic acidosis (5) Profound anemia (6) Chest pain (7) ESRD (end stage renal disease) on dialysis (8) cp Mathew Green Jul 08, 2020 08:57
[2020-07-08] MEDS ORDERED: Digoxin 0.125mg tab ORAL SCH (09:00)
[2020-07-08] MEDS: Eliquis 2.5mg tablet ORAL SCH ×2 (09:02→17:06)
[2020-07-08] MEDS: Calcitriol 0.25mcg Cap ORAL SCH (09:02)
[2020-07-08] MEDS: Digoxin 0.125mg tab ORAL SCH (09:03)
[2020-07-08] MEDS: Nephrovite tab (Rena-Vite) ORAL SCH (09:03)
[2020-07-08 10:49] LABS: ANION GAP 12 mmol/L (5-15); BLOOD UREA NITROGEN 83 mg/dL (7-18); CALCIUM 8.2 MG/DL (8.5-10.1); CARBON DIOXIDE 25 MMOL/L (21-32); CHLORIDE 95 MMOL/L (98-107); POTASSIUM 3.2 MMOL/L (3.5-5.1); SODIUM 132 MMOL/L (136-145)
[2020-07-08 11:00] LABS: HEMATOCRIT 22.7 % (42.0-52.0); HEMOGLOBIN 7.2 G/DL (14.2-18.0); MEAN CORPUSCULAR VOLUME 87 FL (80-99); PLATELET COUNT 90 K/UL (150-450); RED BLOOD COUNT 2.61 M/UL (4.70-6.10); RED CELL DISTRIBUTION WIDTH 16.9 % (11.6-14.8)
[2020-07-08 12:00] VITALS: BP 121/64
--- NOTE | 2020-07-08 13:28 | General Progress Note ---
Assessment/Plan Problem List: (1) ESRD (end stage renal disease) on dialysis ICD Codes: N18.6 - End stage renal disease; Z99.2 - Dependence on renal dialysis SNOMED: 166870170 (2) Metabolic acidosis ICD Codes: E87.2 - Acidosis SNOMED: 32643966 (3) Basal cell carcinoma Assessment & Plan: questionable ICD Codes: C44.91 - Basal cell carcinoma of skin, unspecified SNOMED: 745042818 Qualifiers: Qualified Codes: C44.41 - Basal cell carcinoma of skin of scalp and neck (4) Profound anemia ICD Codes: D64.9 - Anemia, unspecified SNOMED: 462243614 Qualifiers: Qualified Codes: D64.9 - Anemia, unspecified (5) Elevated troponin ICD Codes: R79.89 - Other specified abnormal findings of blood chemistry SNOMED: 343272005, 000142693, 500598260 (6) Status post kidney transplant ICD Codes: Z94.0 - Kidney transplant status SNOMED: 778006965, 34704657, 07336154 Assessment/Plan: continue Rocaltrol abxs HD thursday follow labs continue Epogen an IV Iron Subjective Allergies: Coded Allergies: ASPIRIN (Verified Allergy, Unknown, 07/04/20) Subjective all noted Objective Last 24 Hour Vital Signs Date Time Temp Pulse Resp B/P (MAP) Pulse Ox O2 Delivery O2 Flow Rate FiO2 07/08/20 12:00 98.7 72 16 121/64 (83) 96 07/08/20 09:03 74 07/08/20 08:00 98.7 74 16 113/56 (75) 96 07/08/20 05:07 63 113/63 07/08/20 04:00 99.0 66 18 113/63 (80) 96 07/08/20 04:00 63 07/08/20 00:00 65 07/08/20 00:00 97.5 67 18 105/56 (72) 97 07/07/20 21:41 98.4 07/07/20 21:11 74 118/59 07/07/20 20:00 100.9 74 18 118/59 (78) 98 07/07/20 20:00 70 07/07/20 16:00 91 07/07/20 16:00 98.9 94 16 143/61 (88) 98 07/07/20 14:00 84 112/57 Intake and Output 07/07/20 07/08/20 19:00 07:00 Intake Total 640 ml 100 ml Balance 640 ml 100 ml Intake Oral 640 ml 100 ml # Voids 2 Laboratory Tests 07/08/20 10:03: White Blood Count 7.0, Red Blood Count 2.61L, Hemoglobin 7.2L, Hematocrit 22.7L , Mean Corpuscular Volume 87, Mean Corpuscular Hemoglobin 27.6, Mean Corpuscular Hemoglobin Concent 31.8L, Red Cell Distribution Width 16.9H, Platelet Count 90L, Mean Platelet Volume 8.5, Neutrophils (%) (Auto) , Lymphocytes (%) (Auto) , Monocytes (%) (Auto) , Eosinophils (%) (Auto) , Basophils (%) (Auto) , Differential Total Cells Counted 100, Neutrophils % ( Manual) 90H, Lymphocytes % (Manual) 4L, Monocytes % (Manual) 6, Eosinophils % ( Manual) 0, Basophils % (Manual) 0, Band Neutrophils 0, Platelet Estimate DecreasedL, Platelet Morphology Normal, Polychromasia 1+, Hypochromasia 1+, Anisocytosis 1+, Sodium Level 132L, Potassium Level 3.2L, Chloride Level 95L, Carbon Dioxide Level 25, Anion Gap 12, Blood Urea Nitrogen 83H, Creatinine 8.0H , Estimat Glomerular Filtration Rate 7.0, Glucose Level 165H, Calcium Level 8.2L , Random Vancomycin Level 11.1 Height (Feet): 5 Height (Inches): 7.00 Weight (Pounds): 130 Raulito Hyde MD Jul 08, 2020 13:28
[2020-07-08] MEDS ORDERED: Vancomycin 1gm/D5W 275ml IVPB SCH ×2 (14:00)
--- NOTE | 2020-07-08 14:17 | Infectious Diseases Prog Note ---
Assessment/Plan Assessment/Plan IMPRESSION: Sepsis with Staph aureus and gram & E.coli Atrial fibrillation with RVR Necrotic skin lesion in the right temporal area, ? skin cancer, Rejected kidney transplant, Renal failure, Acidosis, Severe anemia, Hypertension. MRSA carrier RECOMMENDATIONS: Continue IV vancomycin &cefepime. We will follow up the cultures. Subjective ROS Limited/Unobtainable: Yes Constitutional: Reports: fever, other - last night Allergies: Coded Allergies: ASPIRIN (Verified Allergy, Unknown, 07/04/20) Objective Last 24 Hour Vital Signs Date Time Temp Pulse Resp B/P (MAP) Pulse Ox O2 Delivery O2 Flow Rate FiO2 07/08/20 12:00 98.7 72 16 121/64 (83) 96 07/08/20 09:03 74 07/08/20 08:00 98.7 74 16 113/56 (75) 96 07/08/20 05:07 63 113/63 07/08/20 04:00 99.0 66 18 113/63 (80) 96 07/08/20 04:00 63 07/08/20 00:00 65 07/08/20 00:00 97.5 67 18 105/56 (72) 97 07/07/20 21:41 98.4 07/07/20 21:11 74 118/59 07/07/20 20:00 100.9 74 18 118/59 (78) 98 07/07/20 20:00 70 07/07/20 16:00 91 07/07/20 16:00 98.9 94 16 143/61 (88) 98 Height (Feet): 5 Height (Inches): 7.00 Weight (Pounds): 130 General Appearance: no acute distress HEENT: mucous membranes moist Respiratory/Chest: lungs clear Cardiovascular: normal rate Abdomen: soft, non tender Extremities: no edema Skin: other - R temporal ulcer Microbiology Date/Time Source Procedure Growth Status 07/06/20 13:36 Urine,Clean Catch Urine Culture - Preliminary NO GROWTH AFTER 24 HOURS Resulted Laboratory Tests Test 07/08/20 10:03 White Blood Count 7.0 K/UL (4.8-10.8) Red Blood Count 2.61 M/UL (4.70-6.10) L Hemoglobin 7.2 G/DL (14.2-18.0) L Hematocrit 22.7 % (42.0-52.0) L Mean Corpuscular Volume 87 FL (80-99) Mean Corpuscular Hemoglobin 27.6 PG (27.0-31.0) Mean Corpuscular Hemoglobin Concent 31.8 G/DL (32.0-36.0) L Red Cell Distribution Width 16.9 % (11.6-14.8) H Platelet Count 90 K/UL (150-450) L Mean Platelet Volume 8.5 FL (6.5-10.1) Neutrophils (%) (Auto) % (45.0-75.0) Lymphocytes (%) (Auto) % (20.0-45.0) Monocytes (%) (Auto) % (1.0-10.0) Eosinophils (%) (Auto) % (0.0-3.0) Basophils (%) (Auto) % (0.0-2.0) Differential Total Cells Counted 100 Neutrophils % (Manual) 90 % (45-75) H Lymphocytes % (Manual) 4 % (20-45) L Monocytes % (Manual) 6 % (1-10) Eosinophils % (Manual) 0 % (0-3) Basophils % (Manual) 0 % (0-2) Band Neutrophils 0 % (0-8) Platelet Estimate Decreased L Platelet Morphology Normal Polychromasia 1+ Hypochromasia 1+ Anisocytosis 1+ Sodium Level 132 MMOL/L (136-145) L Potassium Level 3.2 MMOL/L (3.5-5.1) L Chloride Level 95 MMOL/L (98-107) L Carbon Dioxide Level 25 MMOL/L (21-32) Anion Gap 12 mmol/L (5-15) Blood Urea Nitrogen 83 mg/dL (7-18) H Creatinine 8.0 MG/DL (0.55-1.30) H Estimat Glomerular Filtration Rate 7.0 mL/min (>60) Glucose Level 165 MG/DL (74-106) H Calcium Level 8.2 MG/DL (8.5-10.1) L Random Vancomycin Level 11.1 ug/mL Current Medications Medications (Trade) Dose Ordered Sig/Marco A Route PRN Reason Start Time Stop Time Status Last Admin Dose Admin Acetaminophen (Tylenol) 650 mg Q4H PRN ORAL Mild Pain (Pain Scale 1-3) 07/08/20 08:00 08/03/20 15:59 Apixaban (Eliquis) 2.5 mg BID ORAL 07/08/20 09:00 10/04/20 17:59 07/08/20 09:02 Calcitriol (Rocatrol) 0.25 mcg DAILY ORAL 07/08/20 09:00 10/05/20 13:59 07/08/20 09:02 Cefepime HCl 500 mg/Dextrose 55 ml @ 110 mls/hr Q24H IVPB 07/08/20 21:00 07/12/20 20:59 Dextrose (Dextrose 50%) 25 ml Q30M PRN IV Hypoglycemia 07/08/20 07:15 10/02/20 18:44 Dextrose (Dextrose 50%) 50 ml Q30M PRN IV Hypoglycemia 07/08/20 07:00 10/02/20 16:59 Digoxin (Lanoxin) 0.125 mg DAILY ORAL 07/08/20 09:00 10/06/20 08:59 07/08/20 09:03 Diltiazem HCl (Cardizem Tab) 60 mg EVERY 8 HOURS ORAL 07/08/20 14:00 08/05/20 13:59 Epoetin Mode (Epoetin Mode(ESRD on dialysis)) 8,000 unit THU-THU-THU SUBQ 07/09/20 21:00 10/02/20 20:59 Iron Sucrose 100 mg/Sodium Chloride 60 ml @ 240 mls/hr BEDTIME IV 07/08/20 21:00 07/10/20 21:14 Morphine Sulfate (Morphine Sulfate) 2 mg Q4H PRN IVP pain 4-10 07/08/20 08:00 07/12/20 15:59 Nitroglycerin (Ntg) 0.4 mg Q5M PRN SL Prn Chest Pain 07/08/20 07:00 08/04/20 16:59 Polyethylene Glycol (Miralax) 17 gm DAILYPRN PRN ORAL Constipation 07/08/20 08:30 08/03/20 08:29 Sodium Chloride 1,000 ml @ 500 mls/hr Q2H PRN IVLG sbp<90 during hd 07/09/20 13:29 08/08/20 13:28 Vancomycin HCl (Vanco pharmacy to dose) 1 ea DAILY PRN MISC Per rx protocol 07/08/20 09:00 08/04/20 16:59 Vancomycin HCl 1 gm/Dextrose 275 ml @ 183.708 mls/hr ONCE IVPB 07/08/20 14:00 07/08/20 16:00 Vitamin B Complex/ Vit C/Folic Acid (Nephrovite) 1 tab DAILY ORAL 07/08/20 09:00 08/03/20 19:59 07/08/20 09:03 Zolpidem Tartrate (Ambien) 5 mg HSPRN PRN ORAL Insomnia 07/08/20 20:00 07/11/20 19:59 Darius Hyde MD Jul 08, 2020 14:17
[2020-07-08] MEDS ORDERED: chlorproMAZINE 10mg tab ORAL PRN (15:15)
[2020-07-08 16:00] VITALS: BP 134/67
[2020-07-08 20:00] VITALS: BP 108/50
[2020-07-08] MEDS ORDERED: Zolpidem 5mg tab ORAL PRN (20:00)
[2020-07-08] MEDS: Iron Sucrose 100 MG in NS 55 ML IV SCH (21:01)
[2020-07-08] MEDS: Cefepime HCl 500 MG in D5W 55 ML IVPB SCH (21:40)
[2020-07-09] VITALS (7 sets, daily range): BP systolic 117–126; BP diastolic 62–75
[2020-07-09] MEDS: dilTIAZem HCl 60mg tab ORAL SCH ×3 (06:00→21:04)
[2020-07-09 07:04] LABS: HEMATOCRIT 23.1 % (42.0-52.0); HEMOGLOBIN 7.1 G/DL (14.2-18.0); MEAN CORPUSCULAR VOLUME 90 FL (80-99); PLATELET COUNT 101 K/UL (150-450); RED BLOOD COUNT 2.56 M/UL (4.70-6.10); RED CELL DISTRIBUTION WIDTH 12.5 % (11.6-14.8)
[2020-07-09 07:59] LABS: ANION GAP 17 mmol/L (5-15); BLOOD UREA NITROGEN 98 mg/dL (7-18); CALCIUM 9.1 MG/DL (8.5-10.1); CARBON DIOXIDE 21 MMOL/L (21-32); CHLORIDE 94 MMOL/L (98-107); CREATININE 9.2 MG/DL (0.55-1.30); POTASSIUM 3.5 MMOL/L (3.5-5.1); SODIUM 132 MMOL/L (136-145)
[2020-07-09] MEDS: Eliquis 2.5mg tablet ORAL SCH ×2 (09:00→17:04)
[2020-07-09] MEDS: Calcitriol 0.25mcg Cap ORAL SCH (09:05)
[2020-07-09] MEDS: Digoxin 0.125mg tab ORAL SCH (09:06)
[2020-07-09] MEDS: Nephrovite tab (Rena-Vite) ORAL SCH (09:06)
--- NOTE | 2020-07-09 10:57 | General Progress Note ---
Assessment/Plan Problem List: (1) ESRD (end stage renal disease) on dialysis ICD Codes: N18.6 - End stage renal disease; Z99.2 - Dependence on renal dialysis SNOMED: 400521969 (2) Metabolic acidosis ICD Codes: E87.2 - Acidosis SNOMED: 74119238 (3) Basal cell carcinoma Assessment & Plan: questionable ICD Codes: C44.91 - Basal cell carcinoma of skin, unspecified SNOMED: 343549645 Qualifiers: Qualified Codes: C44.41 - Basal cell carcinoma of skin of scalp and neck (4) Profound anemia ICD Codes: D64.9 - Anemia, unspecified SNOMED: 894390988 Qualifiers: Qualified Codes: D64.9 - Anemia, unspecified (5) Elevated troponin ICD Codes: R79.89 - Other specified abnormal findings of blood chemistry SNOMED: 848368248, 646630557, [id number] (6) Status post kidney transplant ICD Codes: Z94.0 - Kidney transplant status SNOMED: 016775698, 85770699, [id number] Assessment/Plan: continue Rocaltrol abxs HD today follow labs continue Epogen an IV Iron Subjective Allergies: Coded Allergies: ASPIRIN (Verified Allergy, Unknown, 07/04/20) Subjective feels ok Objective Last 24 Hour Vital Signs Date Time Temp Pulse Resp B/P (MAP) Pulse Ox O2 Delivery O2 Flow Rate FiO2 07/09/20 09:06 65 07/09/20 08:00 97.3 81 19 122/65 (84) 97 07/09/20 06:00 65 102/61 07/09/20 04:00 97.0 80 19 117/62 (80) 96 07/09/20 00:00 96.3 72 20 124/64 (84) 96 07/08/20 22:00 73 107/63 07/08/20 20:00 98.1 70 18 108/50 (69) 95 07/08/20 16:00 96.8 74 19 134/67 (89) 96 07/08/20 15:39 74 134/69 07/08/20 12:00 98.7 72 16 121/64 (83) 96 Intake and Output 07/08/20 07/09/20 19:00 07:00 Intake Total 960 ml 360 ml Output Total 400 ml Balance 560 ml 360 ml Intake Oral 960 ml 300 ml IV Total 60 ml Output Urine Total 400 ml Laboratory Tests 07/09/20 06:00: White Blood Count 6.0, Red Blood Count 2.56L, Hemoglobin 7.1L, Hematocrit 23.1L , Mean Corpuscular Volume 90, Mean Corpuscular Hemoglobin 27.8, Mean Corpuscular Hemoglobin Concent 30.9L, Red Cell Distribution Width 12.5, Platelet Count 101L, Mean Platelet Volume 9.5, Neutrophils (%) (Auto) , Lymphocytes (%) (Auto) , Monocytes (%) (Auto) , Eosinophils (%) (Auto) , Basophils (%) (Auto) , Differential Total Cells Counted 100, Neutrophils % ( Manual) 82H, Lymphocytes % (Manual) 3L, Monocytes % (Manual) 13H, Eosinophils % (Manual) 2, Basophils % (Manual) 0, Band Neutrophils 0, Platelet Estimate DecreasedL, Platelet Morphology Normal, Hypochromasia 1+, Ovalocytes Occasional , Schistocytes Occasional, Sodium Level 132L, Potassium Level 3.5, Chloride Level 94L, Carbon Dioxide Level 21, Anion Gap 17H, Blood Urea Nitrogen 98H, Creatinine 9.2H, Estimat Glomerular Filtration Rate 5.9, Glucose Level 170H, Calcium Level 9.1 Height (Feet): 5 Height (Inches): 7.00 Weight (Pounds): 134 Cardiovascular: normal rate Respiratory/Chest: lungs clear Edema: no edema noted Generalized Raulito Hyde MD Jul 09, 2020 10:56
--- NOTE | 2020-07-09 11:30 | Infectious Diseases Prog Note ---
Assessment/Plan Assessment/Plan IMPRESSION: Sepsis with Staph aureus and E.coli Atrial fibrillation with RVR Necrotic skin lesion in the right temporal area, ? skin cancer, Rejected kidney transplant, Renal failure, Acidosis, Severe anemia, Hypertension. MRSA carrier RECOMMENDATIONS: Discontinue IV vancomycin Continue cefepime. We will follow up the cultures. Subjective ROS Limited/Unobtainable: No Constitutional: Reports: no symptoms Respiratory: Reports: no symptoms Cardiovascular: Reports: no symptoms Gastrointestinal/Abdominal: Reports: no symptoms Genitourinary: Reports: no symptoms Allergies: Coded Allergies: ASPIRIN (Verified Allergy, Unknown, 07/04/20) Objective Last 24 Hour Vital Signs Date Time Temp Pulse Resp B/P (MAP) Pulse Ox O2 Delivery O2 Flow Rate FiO2 07/09/20 09:06 65 07/09/20 08:00 97.3 81 19 122/65 (84) 97 07/09/20 06:00 65 102/61 07/09/20 04:00 97.0 80 19 117/62 (80) 96 07/09/20 00:00 96.3 72 20 124/64 (84) 96 07/08/20 22:00 73 107/63 07/08/20 20:00 98.1 70 18 108/50 (69) 95 07/08/20 16:00 96.8 74 19 134/67 (89) 96 07/08/20 15:39 74 134/69 07/08/20 12:00 98.7 72 16 121/64 (83) 96 Height (Feet): 5 Height (Inches): 7.00 Weight (Pounds): 134 General Appearance: no acute distress HEENT: mucous membranes moist Respiratory/Chest: lungs clear Cardiovascular: normal rate Abdomen: soft, non tender Extremities: no edema Skin: other - R temporal ulcer Neurologic/Psychiatric: alert, oriented x 3, responsive Microbiology Date/Time Source Procedure Growth Status 07/06/20 13:36 Urine,Clean Catch Urine Culture - Final NO GROWTH AFTER 48 HOURS Complete Laboratory Tests Test 07/09/20 06:00 White Blood Count 6.0 K/UL (4.8-10.8) Red Blood Count 2.56 M/UL (4.70-6.10) L Hemoglobin 7.1 G/DL (14.2-18.0) L Hematocrit 23.1 % (42.0-52.0) L Mean Corpuscular Volume 90 FL (80-99) Mean Corpuscular Hemoglobin 27.8 PG (27.0-31.0) Mean Corpuscular Hemoglobin Concent 30.9 G/DL (32.0-36.0) L Red Cell Distribution Width 12.5 % (11.6-14.8) Platelet Count 101 K/UL (150-450) L Mean Platelet Volume 9.5 FL (6.5-10.1) Neutrophils (%) (Auto) % (45.0-75.0) Lymphocytes (%) (Auto) % (20.0-45.0) Monocytes (%) (Auto) % (1.0-10.0) Eosinophils (%) (Auto) % (0.0-3.0) Basophils (%) (Auto) % (0.0-2.0) Differential Total Cells Counted 100 Neutrophils % (Manual) 82 % (45-75) H Lymphocytes % (Manual) 3 % (20-45) L Monocytes % (Manual) 13 % (1-10) H Eosinophils % (Manual) 2 % (0-3) Basophils % (Manual) 0 % (0-2) Band Neutrophils 0 % (0-8) Platelet Estimate Decreased L Platelet Morphology Normal Hypochromasia 1+ Ovalocytes Occasional Schistocytes Occasional Sodium Level 132 MMOL/L (136-145) L Potassium Level 3.5 MMOL/L (3.5-5.1) Chloride Level 94 MMOL/L (98-107) L Carbon Dioxide Level 21 MMOL/L (21-32) Anion Gap 17 mmol/L (5-15) H Blood Urea Nitrogen 98 mg/dL (7-18) H Creatinine 9.2 MG/DL (0.55-1.30) H Estimat Glomerular Filtration Rate 5.9 mL/min (>60) Glucose Level 170 MG/DL (74-106) H Calcium Level 9.1 MG/DL (8.5-10.1) Current Medications Medications (Trade) Dose Ordered Sig/Marco A Route PRN Reason Start Time Stop Time Status Last Admin Dose Admin Acetaminophen (Tylenol) 650 mg Q4H PRN ORAL Mild Pain (Pain Scale 1-3) 07/08/20 08:00 08/03/20 15:59 Apixaban (Eliquis) 2.5 mg BID ORAL 07/08/20 09:00 10/04/20 17:59 07/08/20 17:06 Calcitriol (Rocatrol) 0.25 mcg DAILY ORAL 07/08/20 09:00 10/05/20 13:59 07/09/20 09:05 Cefepime HCl 500 mg/Dextrose 55 ml @ 110 mls/hr Q24H IVPB 07/08/20 21:00 07/12/20 20:59 07/08/20 21:40 Chlorpromazine (Thorazine) 25 mg TIDPRN PRN ORAL hiccup 07/08/20 15:15 08/07/20 15:14 07/08/20 17:01 Dextrose (Dextrose 50%) 25 ml Q30M PRN IV Hypoglycemia 07/08/20 07:15 10/02/20 18:44 Dextrose (Dextrose 50%) 50 ml Q30M PRN IV Hypoglycemia 07/08/20 07:00 10/02/20 16:59 Digoxin (Lanoxin) 0.125 mg DAILY ORAL 07/08/20 09:00 10/06/20 08:59 07/09/20 09:06 Diltiazem HCl (Cardizem Tab) 60 mg EVERY 8 HOURS ORAL 07/08/20 14:00 08/05/20 13:59 07/08/20 15:39 Epoetin Mode (Epoetin Mode(ESRD on dialysis)) 8,000 unit THU-THU-THU SUBQ 07/09/20 21:00 10/02/20 20:59 Iron Sucrose 100 mg/Sodium Chloride 60 ml @ 240 mls/hr BEDTIME IV 07/08/20 21:00 07/10/20 21:14 07/08/20 21:01 Morphine Sulfate (Morphine Sulfate) 2 mg Q4H PRN IVP pain 4-10 07/08/20 08:00 07/12/20 15:59 Nitroglycerin (Ntg) 0.4 mg Q5M PRN SL Prn Chest Pain 07/08/20 07:00 08/04/20 16:59 Polyethylene Glycol (Miralax) 17 gm DAILYPRN PRN ORAL Constipation 07/08/20 08:30 08/03/20 08:29 Sodium Chloride 1,000 ml @ 500 mls/hr Q2H PRN IVLG sbp<90 during hd 07/09/20 13:29 08/08/20 13:28 Vancomycin HCl (Vanco pharmacy to dose) 1 ea DAILY PRN MISC Per rx protocol 07/08/20 09:00 08/04/20 16:59 Vitamin B Complex/ Vit C/Folic Acid (Nephrovite) 1 tab DAILY ORAL 07/08/20 09:00 08/03/20 19:59 07/09/20 09:06 Zolpidem Tartrate (Ambien) 5 mg HSPRN PRN ORAL Insomnia 07/08/20 20:00 07/11/20 19:59 Darius Hyde MD Jul 09, 2020 11:30
--- NOTE | 2020-07-09 12:17 | Surgery Progress Note ---
Surgery Progress Note Subjective Additional Comments improving labs noted exam improved wound cleaning at bedside done. looks better Objective Last 24 Hour Vital Signs Date Time Temp Pulse Resp B/P (MAP) Pulse Ox O2 Delivery O2 Flow Rate FiO2 07/09/20 12:00 97.4 86 20 125/68 (87) 97 07/09/20 09:06 65 07/09/20 08:00 97.3 81 19 122/65 (84) 97 07/09/20 06:00 65 102/61 07/09/20 04:00 97.0 80 19 117/62 (80) 96 07/09/20 00:00 96.3 72 20 124/64 (84) 96 07/08/20 22:00 73 107/63 07/08/20 20:00 98.1 70 18 108/50 (69) 95 07/08/20 16:00 96.8 74 19 134/67 (89) 96 07/08/20 15:39 74 134/69 I&O Intake and Output 07/08/20 07/09/20 19:00 07:00 Intake Total 960 ml 360 ml Output Total 400 ml Balance 560 ml 360 ml Intake Oral 960 ml 300 ml IV Total 60 ml Output Urine Total 400 ml Dressing: other Wound: other Cardiovascular: RSR Respiratory: decreased breath sounds Abdomen: soft, non-tender, present bowel sounds Extremities: no tenderness, no cyanosis Laboratory Tests Test 07/09/20 06:00 White Blood Count 6.0 K/UL (4.8-10.8) Red Blood Count 2.56 M/UL (4.70-6.10) L Hemoglobin 7.1 G/DL (14.2-18.0) L Hematocrit 23.1 % (42.0-52.0) L Mean Corpuscular Volume 90 FL (80-99) Mean Corpuscular Hemoglobin 27.8 PG (27.0-31.0) Mean Corpuscular Hemoglobin Concent 30.9 G/DL (32.0-36.0) L Red Cell Distribution Width 12.5 % (11.6-14.8) Platelet Count 101 K/UL (150-450) L Mean Platelet Volume 9.5 FL (6.5-10.1) Neutrophils (%) (Auto) % (45.0-75.0) Lymphocytes (%) (Auto) % (20.0-45.0) Monocytes (%) (Auto) % (1.0-10.0) Eosinophils (%) (Auto) % (0.0-3.0) Basophils (%) (Auto) % (0.0-2.0) Differential Total Cells Counted 100 Neutrophils % (Manual) 82 % (45-75) H Lymphocytes % (Manual) 3 % (20-45) L Monocytes % (Manual) 13 % (1-10) H Eosinophils % (Manual) 2 % (0-3) Basophils % (Manual) 0 % (0-2) Band Neutrophils 0 % (0-8) Platelet Estimate Decreased L Platelet Morphology Normal Hypochromasia 1+ Ovalocytes Occasional Schistocytes Occasional Sodium Level 132 MMOL/L (136-145) L Potassium Level 3.5 MMOL/L (3.5-5.1) Chloride Level 94 MMOL/L (98-107) L Carbon Dioxide Level 21 MMOL/L (21-32) Anion Gap 17 mmol/L (5-15) H Blood Urea Nitrogen 98 mg/dL (7-18) H Creatinine 9.2 MG/DL (0.55-1.30) H Estimat Glomerular Filtration Rate 5.9 mL/min (>60) Glucose Level 170 MG/DL (74-106) H Calcium Level 9.1 MG/DL (8.5-10.1) Plan Problems: (1) Elevated troponin (2) Acute renal failure (3) Basal cell carcinoma Assessment & Plan: Right forehead scalp open wound potential basal cell carcinoma ulcerated raised edges significant slough in the center. Infected. Recommend local wound care and infection control. Will considerations for biopsy versus excisional biopsy with flap. Need medical optimization resuscitation first. Continue with current medical care. Discussed with patient and PCP. Will consider plans for local control upon improvement. Thank you fine partition patient's care. Wash wound daily with normal saline. Apply dressings 3 times daily. non excisional debridement at bedside wound much pattern cleaner dressing TID gauze cont dressings will monitor (4) Metabolic acidosis (5) Profound anemia (6) Chest pain (7) ESRD (end stage renal disease) on dialysis (8) Mathew Brown Jul 09, 2020 12:17
--- NOTE | 2020-07-09 14:42 | Cardiac Electrophysiology PN ---
Assessment/Plan Assessment/Plan 1. Atrial fibrillation, rapid ventricular response with heart rate of 180s. Got 0.5 mg IV digoxin once. Digoxin level is 1.3 On Dig 0.125 daily and Cardizem 60 po tid Echo EF 65%. On Eliquis 2.5 bid. Platelet 101 2. Troponin leak likely due to renal failure and atrial fib with RVR. ECho Nl EF 3. Profound anemia, hemoglobin of only 6. S/P 2 unit blood transfusion. Could be due to renal failure. Stool OB pending 4. Acute on chronic renal failure in a patient with history of kidney transplant. The patient currently is on hemodialysis under management of Dr. Hyde. 5. Thrombocytopenia. 6. History of hypertension. 7. History of left arm fistula. DW RN Subjective Subjective Off tele now. Alert in NAD. Stool OB positive on 07/07. Had 2 PRBCs and getting HD Objective Last 24 Hour Vital Signs Date Time Temp Pulse Resp B/P (MAP) Pulse Ox O2 Delivery O2 Flow Rate FiO2 07/09/20 14:19 86 125/68 07/09/20 12:00 97.4 86 20 125/68 (87) 97 07/09/20 09:06 65 07/09/20 08:00 97.3 81 19 122/65 (84) 97 07/09/20 06:00 65 102/61 07/09/20 04:00 97.0 80 19 117/62 (80) 96 07/09/20 00:00 96.3 72 20 124/64 (84) 96 07/08/20 22:00 73 107/63 07/08/20 20:00 98.1 70 18 108/50 (69) 95 07/08/20 16:00 96.8 74 19 134/67 (89) 96 07/08/20 15:39 74 134/69 Intake and Output 07/08/20 07/09/20 19:00 07:00 Intake Total 960 ml 360 ml Output Total 400 ml Balance 560 ml 360 ml Intake Oral 960 ml 300 ml IV Total 60 ml Output Urine Total 400 ml Laboratory Tests Test 07/09/20 06:00 White Blood Count 6.0 K/UL (4.8-10.8) Red Blood Count 2.56 M/UL (4.70-6.10) L Hemoglobin 7.1 G/DL (14.2-18.0) L Hematocrit 23.1 % (42.0-52.0) L Mean Corpuscular Volume 90 FL (80-99) Mean Corpuscular Hemoglobin 27.8 PG (27.0-31.0) Mean Corpuscular Hemoglobin Concent 30.9 G/DL (32.0-36.0) L Red Cell Distribution Width 12.5 % (11.6-14.8) Platelet Count 101 K/UL (150-450) L Mean Platelet Volume 9.5 FL (6.5-10.1) Neutrophils (%) (Auto) % (45.0-75.0) Lymphocytes (%) (Auto) % (20.0-45.0) Monocytes (%) (Auto) % (1.0-10.0) Eosinophils (%) (Auto) % (0.0-3.0) Basophils (%) (Auto) % (0.0-2.0) Differential Total Cells Counted 100 Neutrophils % (Manual) 82 % (45-75) H Lymphocytes % (Manual) 3 % (20-45) L Monocytes % (Manual) 13 % (1-10) H Eosinophils % (Manual) 2 % (0-3) Basophils % (Manual) 0 % (0-2) Band Neutrophils 0 % (0-8) Platelet Estimate Decreased L Platelet Morphology Normal Hypochromasia 1+ Ovalocytes Occasional Schistocytes Occasional Sodium Level 132 MMOL/L (136-145) L Potassium Level 3.5 MMOL/L (3.5-5.1) Chloride Level 94 MMOL/L (98-107) L Carbon Dioxide Level 21 MMOL/L (21-32) Anion Gap 17 mmol/L (5-15) H Blood Urea Nitrogen 98 mg/dL (7-18) H Creatinine 9.2 MG/DL (0.55-1.30) H Estimat Glomerular Filtration Rate 5.9 mL/min (>60) Glucose Level 170 MG/DL (74-106) H Calcium Level 9.1 MG/DL (8.5-10.1) Objective HEAD AND NECK: Shows positive JVD. LUNGS: Decreased breath sounds. CARDIOVASCULAR: Shows irregularly irregular, tachycardic S1 and S2. ABDOMEN: Soft. EXTREMITIES: No pitting edema. Juaquin Tomlin MD Jul 09, 2020 14:42
[2020-07-09] MEDS: Epoetin Alfa-EPBX(ESRD on dialysis)4000 units/ml vial SUBQ SCH (20:17)
[2020-07-09] MEDS: Iron Sucrose 100 MG in NS 55 ML IV SCH (20:17)
[2020-07-09] MEDS: Cefepime HCl 500 MG in D5W 55 ML IVPB SCH (20:57)
[2020-07-10] VITALS: BP 128/68
[2020-07-10 04:00] VITALS: BP 137/88
[2020-07-10] MEDS: dilTIAZem HCl 60mg tab ORAL SCH ×3 (05:24→21:54)
[2020-07-10 08:00] VITALS: BP 130/86
[2020-07-10] MEDS: Nephrovite tab (Rena-Vite) ORAL SCH (08:48)
[2020-07-10] MEDS: Digoxin 0.125mg tab ORAL SCH (08:48)
[2020-07-10] MEDS: Eliquis 2.5mg tablet ORAL SCH ×2 (08:48→17:41)
[2020-07-10] MEDS: Calcitriol 0.25mcg Cap ORAL SCH (08:48)
[2020-07-10 12:00] VITALS: BP 142/75
--- NOTE | 2020-07-10 12:34 | Infectious Diseases Prog Note ---
Assessment/Plan Assessment/Plan IMPRESSION: Sepsis with Staph aureus and E.coli Atrial fibrillation with RVR Necrotic skin lesion in the right temporal area, cleaned skin cancer,infected Rejected kidney transplant, Renal failure, Acidosis, Severe anemia, Hypertension. MRSA carrier RECOMMENDATIONS: Continue cefepime. We will follow up the cultures. Subjective ROS Limited/Unobtainable: No Constitutional: Reports: no symptoms Respiratory: Reports: no symptoms Cardiovascular: Reports: no symptoms Gastrointestinal/Abdominal: Reports: no symptoms Allergies: Coded Allergies: ASPIRIN (Verified Allergy, Unknown, 07/04/20) Objective Last 24 Hour Vital Signs Date Time Temp Pulse Resp B/P (MAP) Pulse Ox O2 Delivery O2 Flow Rate FiO2 07/10/20 12:00 98.2 76 20 142/75 (97) 97 07/10/20 09:00 Room Air 07/10/20 08:48 79 07/10/20 08:00 98.0 79 20 130/86 (101) 99 07/10/20 05:24 76 137/88 07/10/20 04:00 98.0 76 19 137/88 (104) 98 07/10/20 00:00 98.7 90 19 128/68 (88) 96 07/09/20 21:04 93 122/66 07/09/20 20:00 97.2 93 19 122/66 (84) 97 07/09/20 19:09 97.9 07/09/20 18:42 99.4 101 19 126/75 (92) 98 07/09/20 16:00 98.7 101 19 126/75 (92) 98 07/09/20 14:19 86 125/68 Height (Feet): 5 Height (Inches): 7.00 Weight (Pounds): 133 General Appearance: no acute distress HEENT: mucous membranes moist Respiratory/Chest: lungs clear Cardiovascular: normal rate Abdomen: soft, non tender Extremities: no edema Skin: other - R temporal ulcer more clean Neurologic/Psychiatric: alert, oriented x 3, responsive Current Medications Medications (Trade) Dose Ordered Sig/Marco A Route PRN Reason Start Time Stop Time Status Last Admin Dose Admin Acetaminophen (Tylenol) 650 mg Q4H PRN ORAL Mild Pain (Pain Scale 1-3) 07/08/20 08:00 08/03/20 15:59 07/09/20 18:39 Apixaban (Eliquis) 2.5 mg BID ORAL 07/08/20 09:00 10/04/20 17:59 07/10/20 08:48 Calcitriol (Rocatrol) 0.25 mcg DAILY ORAL 07/08/20 09:00 10/05/20 13:59 07/10/20 08:48 Cefepime HCl 500 mg/Dextrose 55 ml @ 110 mls/hr Q24H IVPB 07/08/20 21:00 07/12/20 20:59 07/09/20 20:57 Chlorpromazine (Thorazine) 25 mg TIDPRN PRN ORAL hiccup 07/08/20 15:15 08/07/20 15:14 07/08/20 17:01 Dextrose (Dextrose 50%) 25 ml Q30M PRN IV Hypoglycemia 07/08/20 07:15 10/02/20 18:44 Dextrose (Dextrose 50%) 50 ml Q30M PRN IV Hypoglycemia 07/08/20 07:00 10/02/20 16:59 Digoxin (Lanoxin) 0.125 mg DAILY ORAL 07/08/20 09:00 10/06/20 08:59 07/10/20 08:48 Diltiazem HCl (Cardizem Tab) 60 mg EVERY 8 HOURS ORAL 07/08/20 14:00 08/05/20 13:59 07/10/20 05:24 Epoetin Mode (Epoetin Mode(ESRD on dialysis)) 8,000 unit THU-THU-THU SUBQ 07/09/20 21:00 10/02/20 20:59 07/09/20 20:17 Iron Sucrose 100 mg/Sodium Chloride 60 ml @ 240 mls/hr BEDTIME IV 07/08/20 21:00 07/10/20 21:14 07/09/20 20:17 Morphine Sulfate (Morphine Sulfate) 2 mg Q4H PRN IVP pain 4-10 07/08/20 08:00 07/12/20 15:59 Nitroglycerin (Ntg) 0.4 mg Q5M PRN SL Prn Chest Pain 07/08/20 07:00 08/04/20 16:59 Polyethylene Glycol (Miralax) 17 gm DAILYPRN PRN ORAL Constipation 07/08/20 08:30 08/03/20 08:29 Sodium Chloride 1,000 ml @ 500 mls/hr Q2H PRN IVLG sbp<90 during hd 07/09/20 13:29 08/08/20 13:28 Vitamin B Complex/ Vit C/Folic Acid (Nephrovite) 1 tab DAILY ORAL 07/08/20 09:00 08/03/20 19:59 07/10/20 08:48 Zolpidem Tartrate (Ambien) 5 mg HSPRN PRN ORAL Insomnia 07/08/20 20:00 07/11/20 19:59 Darius Hyde MD Jul 10, 2020 12:34
--- NOTE | 2020-07-10 14:14 | Surgery Progress Note ---
Surgery Progress Note Subjective Symptoms: improved, tolerating diet, voiding well, passing flatus Additional Comments wound improving Objective Last 24 Hour Vital Signs Date Time Temp Pulse Resp B/P (MAP) Pulse Ox O2 Delivery O2 Flow Rate FiO2 07/10/20 12:00 98.2 76 20 142/75 (97) 97 07/10/20 09:00 Room Air 07/10/20 08:48 79 07/10/20 08:00 98.0 79 20 130/86 (101) 99 07/10/20 05:24 76 137/88 07/10/20 04:00 98.0 76 19 137/88 (104) 98 07/10/20 00:00 98.7 90 19 128/68 (88) 96 07/09/20 21:04 93 122/66 07/09/20 20:00 97.2 93 19 122/66 (84) 97 07/09/20 19:09 97.9 07/09/20 18:42 99.4 101 19 126/75 (92) 98 07/09/20 16:00 98.7 101 19 126/75 (92) 98 07/09/20 14:19 86 125/68 I&O Intake and Output 07/09/20 07/10/20 19:00 07:00 Intake Total 475 ml Output Total 500 ml 300 ml Balance -500 ml 175 ml Intake Oral 360 ml IV Total 115 ml Output Urine Total 300 ml Hemodialysis UF 500 ml # Bowel Movements 1 Dressing: saturated Cardiovascular: RSR Respiratory: decreased breath sounds Abdomen: soft, non-tender, present bowel sounds Extremities: no edema, no tenderness, no cyanosis Plan Problems: (1) Elevated troponin (2) Acute renal failure (3) Basal cell carcinoma Assessment & Plan: Right forehead scalp open wound potential basal cell carcinoma ulcerated raised edges significant slough in the center. Infected. Recommend local wound care and infection control. Will considerations for biopsy versus excisional biopsy with flap. Need medical optimization resuscitation first. Continue with current medical care. Discussed with patient and PCP. Will consider plans for local control upon improvement. Thank you fine partition patient's care. Wash wound daily with normal saline. Apply dressings 3 times daily. non excisional debridement at bedside wound much glove cleaner dressing TID gauze cont dressings will monitor (4) Metabolic acidosis (5) Profound anemia (6) Chest pain (7) ESRD (end stage renal disease) on dialysis (8) Mathew Brown Jul 10, 2020 14:14
[2020-07-10 16:00] VITALS: BP 149/72
--- NOTE | 2020-07-10 17:52 | Cardiac Electrophysiology PN ---
Assessment/Plan Assessment/Plan 1. Atrial fibrillation, rapid ventricular response with heart rate of 180s. Got 0.5 mg IV digoxin once. Digoxin level on 07/06 is 1.3 On Dig 0.125 daily and Cardizem 60 po tid and Eliquis 2.5 bid Echo EF 65%.Repeat Dig level 2. Troponin leak likely due to renal failure and atrial fib with RVR. ECho Nl EF 3. Profound anemia, hemoglobin of only 6. S/P 2 unit blood transfusion. Could be due to renal failure. Stool OB pending 4. Acute on chronic renal failure in a patient with history of kidney transplant. The patient currently is on hemodialysis under management of Dr. Hyde. 5. Thrombocytopenia. 6. History of hypertension. 7. History of left arm fistula. ORLIN RN Subjective Subjective Alert in NAD. Stool OB positive on 07/07. Had 2 PRBCs and 500 cc out HD yesterday Objective Last 24 Hour Vital Signs Date Time Temp Pulse Resp B/P (MAP) Pulse Ox O2 Delivery O2 Flow Rate FiO2 07/10/20 16:00 98.2 76 20 149/72 (97) 97 07/10/20 14:48 83 139/70 07/10/20 12:00 98.2 76 20 142/75 (97) 97 07/10/20 09:00 Room Air 07/10/20 08:48 79 07/10/20 08:00 98.0 79 20 130/86 (101) 99 07/10/20 05:24 76 137/88 07/10/20 04:00 98.0 76 19 137/88 (104) 98 07/10/20 00:00 98.7 90 19 128/68 (88) 96 07/09/20 21:04 93 122/66 07/09/20 20:00 97.2 93 19 122/66 (84) 97 07/09/20 19:09 97.9 07/09/20 18:42 99.4 101 19 126/75 (92) 98 Intake and Output 07/09/20 07/10/20 19:00 07:00 Intake Total 475 ml Output Total 500 ml 300 ml Balance -500 ml 175 ml Intake Oral 360 ml IV Total 115 ml Output Urine Total 300 ml Hemodialysis UF 500 ml # Bowel Movements 1 Objective HEAD AND NECK: Shows positive JVD. LUNGS: Decreased breath sounds. CARDIOVASCULAR: Shows irregularly irregular, tachycardic S1 and S2. ABDOMEN: Soft. EXTREMITIES: No pitting edema. Juaquin Tomlin MD Jul 10, 2020 17:52
[2020-07-10 20:00] VITALS: BP 144/70
--- NOTE | 2020-07-10 20:46 | General Progress Note ---
Assessment/Plan Problem List: (1) ESRD (end stage renal disease) on dialysis ICD Codes: N18.6 - End stage renal disease; Z99.2 - Dependence on renal dialysis SNOMED: 416732599 (2) Metabolic acidosis ICD Codes: E87.2 - Acidosis SNOMED: 62213841 (3) Basal cell carcinoma Assessment & Plan: questionable ICD Codes: C44.91 - Basal cell carcinoma of skin, unspecified SNOMED: 331735489 Qualifiers: Qualified Codes: C44.41 - Basal cell carcinoma of skin of scalp and neck (4) Profound anemia ICD Codes: D64.9 - Anemia, unspecified SNOMED: 423370654 Qualifiers: Qualified Codes: D64.9 - Anemia, unspecified (5) Elevated troponin ICD Codes: R79.89 - Other specified abnormal findings of blood chemistry SNOMED: 534861263, 966439015, 430672866 (6) Status post kidney transplant ICD Codes: Z94.0 - Kidney transplant status SNOMED: 187873349, 65653402, 64895551 Assessment/Plan: continue Rocaltrol abxs HD tomorrow follow labs continue Epogen an IV Iron Discussed with case maker Subjective Allergies: Coded Allergies: ASPIRIN (Verified Allergy, Unknown, 07/04/20) Subjective All noted Objective Last 24 Hour Vital Signs Date Time Temp Pulse Resp B/P (MAP) Pulse Ox O2 Delivery O2 Flow Rate FiO2 07/10/20 20:13 Room Air 07/10/20 16:00 98.2 76 20 149/72 (97) 97 07/10/20 14:48 83 139/70 07/10/20 12:00 98.2 76 20 142/75 (97) 97 07/10/20 09:00 Room Air 07/10/20 08:48 79 07/10/20 08:00 98.0 79 20 130/86 (101) 99 07/10/20 05:24 76 137/88 07/10/20 04:00 98.0 76 19 137/88 (104) 98 07/10/20 00:00 98.7 90 19 128/68 (88) 96 07/09/20 21:04 93 122/66 Intake and Output 07/09/20 07/10/20 19:00 07:00 Intake Total 475 ml Output Total 500 ml 300 ml Balance -500 ml 175 ml Intake Oral 360 ml IV Total 115 ml Output Urine Total 300 ml Hemodialysis UF 500 ml # Bowel Movements 1 Laboratory Tests 07/10/20 18:20: Digoxin Level 1.6 Height (Feet): 5 Height (Inches): 7.00 Weight (Pounds): 133 Raulito Hyde MD Jul 10, 2020 20:46
[2020-07-10] MEDS: Cefepime HCl 500 MG in D5W 55 ML IVPB SCH (21:10)
[2020-07-10] MEDS: Iron Sucrose 100 MG in NS 55 ML IV SCH (21:50)
[2020-07-11] VITALS: BP 132/81
[2020-07-11 04:00] VITALS: BP 129/69
[2020-07-11] MEDS: dilTIAZem HCl 60mg tab ORAL SCH ×3 (05:28→21:02)
[2020-07-11 06:43] LABS: HEMATOCRIT 25.1 % (42.0-52.0); HEMOGLOBIN 7.6 G/DL (14.2-18.0); MEAN CORPUSCULAR VOLUME 91 FL (80-99); PLATELET COUNT 127 K/UL (150-450); RED BLOOD COUNT 2.74 M/UL (4.70-6.10); RED CELL DISTRIBUTION WIDTH 13.9 % (11.6-14.8); WHITE BLOOD COUNT 7.4 K/UL (4.8-10.8)
[2020-07-11 07:35] LABS: ANION GAP 15 mmol/L (5-15); BLOOD UREA NITROGEN 74 mg/dL (7-18); CALCIUM 8.8 MG/DL (8.5-10.1); CARBON DIOXIDE 24 MMOL/L (21-32); CHLORIDE 97 MMOL/L (98-107); CREATININE 7.7 MG/DL (0.55-1.30); POTASSIUM 3.9 MMOL/L (3.5-5.1); SODIUM 136 MMOL/L (136-145)
[2020-07-11 07:39] VITALS: BP 135/64
[2020-07-11] MEDS ORDERED: Heparin Sod 1000 units/ml 10ml IV PRN (08:00)
[2020-07-11] MEDS: Eliquis 2.5mg tablet ORAL SCH ×2 (08:22→17:11)
[2020-07-11] MEDS: Nephrovite tab (Rena-Vite) ORAL SCH (08:22)
[2020-07-11] MEDS: Calcitriol 0.25mcg Cap ORAL SCH (08:22)
[2020-07-11] MEDS: Digoxin 0.125mg tab ORAL SCH (08:23)
[2020-07-11 12:00] VITALS: BP 146/79
--- NOTE | 2020-07-11 12:03 | Infectious Diseases Prog Note ---
Assessment/Plan Assessment/Plan IMPRESSION: Sepsis with Staph aureus and E.coli Atrial fibrillation with RVR Necrotic skin lesion in the right temporal area, cleaned skin cancer,infected Rejected kidney transplant, Renal failure, Acidosis, Severe anemia, Hypertension. MRSA carrier RECOMMENDATIONS: Continue cefepime. We will follow up the cultures. Subjective ROS Limited/Unobtainable: Yes Constitutional: Denies: fever Respiratory: Reports: no symptoms Gastrointestinal/Abdominal: Reports: no symptoms Genitourinary: Reports: no symptoms Musculoskeletal: Reports: no symptoms Allergies: Coded Allergies: ASPIRIN (Verified Allergy, Unknown, 07/04/20) Objective Last 24 Hour Vital Signs Date Time Temp Pulse Resp B/P (MAP) Pulse Ox O2 Delivery O2 Flow Rate FiO2 07/11/20 09:00 Room Air 07/11/20 08:23 77 07/11/20 07:39 97.9 77 22 135/64 (87) 97 07/11/20 05:28 78 129/69 07/11/20 04:00 99.9 78 18 129/69 (89) 100 07/11/20 00:00 98.1 72 18 132/81 (98) 96 07/10/20 21:54 71 144/70 07/10/20 20:13 Room Air 07/10/20 20:00 97.7 71 20 144/70 (94) 96 07/10/20 16:00 98.2 76 20 149/72 (97) 97 07/10/20 14:48 83 139/70 Height (Feet): 5 Height (Inches): 7.00 Weight (Pounds): 134 General Appearance: no acute distress HEENT: mucous membranes moist Respiratory/Chest: lungs clear Cardiovascular: normal rate Abdomen: soft, non tender Extremities: no edema Neurologic/Psychiatric: alert, oriented x 3, responsive Laboratory Tests Test 07/10/20 18:20 07/11/20 05:36 Digoxin Level 1.6 NG/ML (0.5-2.0) White Blood Count 7.4 K/UL (4.8-10.8) Red Blood Count 2.74 M/UL (4.70-6.10) L Hemoglobin 7.6 G/DL (14.2-18.0) L Hematocrit 25.1 % (42.0-52.0) L Mean Corpuscular Volume 91 FL (80-99) Mean Corpuscular Hemoglobin 27.7 PG (27.0-31.0) Mean Corpuscular Hemoglobin Concent 30.4 G/DL (32.0-36.0) L Red Cell Distribution Width 13.9 % (11.6-14.8) Platelet Count 127 K/UL (150-450) L Mean Platelet Volume 8.4 FL (6.5-10.1) Neutrophils (%) (Auto) % (45.0-75.0) Lymphocytes (%) (Auto) % (20.0-45.0) Monocytes (%) (Auto) % (1.0-10.0) Eosinophils (%) (Auto) % (0.0-3.0) Basophils (%) (Auto) % (0.0-2.0) Differential Total Cells Counted 100 Neutrophils % (Manual) 80 % (45-75) H Lymphocytes % (Manual) 7 % (20-45) L Monocytes % (Manual) 11 % (1-10) H Eosinophils % (Manual) 1 % (0-3) Basophils % (Manual) 1 % (0-2) Band Neutrophils 0 % (0-8) Platelet Estimate Decreased L Platelet Morphology Normal Hypochromasia 1+ Ovalocytes Occasional Schistocytes Rare Sodium Level 136 MMOL/L (136-145) Potassium Level 3.9 MMOL/L (3.5-5.1) Chloride Level 97 MMOL/L (98-107) L Carbon Dioxide Level 24 MMOL/L (21-32) Anion Gap 15 mmol/L (5-15) Blood Urea Nitrogen 74 mg/dL (7-18) H Creatinine 7.7 MG/DL (0.55-1.30) H Estimat Glomerular Filtration Rate 7.3 mL/min (>60) Glucose Level 105 MG/DL (74-106) Calcium Level 8.8 MG/DL (8.5-10.1) Current Medications Medications (Trade) Dose Ordered Sig/Marco A Route PRN Reason Start Time Stop Time Status Last Admin Dose Admin Acetaminophen (Tylenol) 650 mg Q4H PRN ORAL Mild Pain (Pain Scale 1-3) 07/08/20 08:00 08/03/20 15:59 07/09/20 18:39 Apixaban (Eliquis) 2.5 mg BID ORAL 07/08/20 09:00 10/04/20 17:59 07/11/20 08:22 Calcitriol (Rocatrol) 0.25 mcg DAILY ORAL 07/08/20 09:00 10/05/20 13:59 07/11/20 08:22 Cefepime HCl 500 mg/Dextrose 55 ml @ 110 mls/hr Q24H IVPB 07/08/20 21:00 07/12/20 20:59 07/10/20 21:10 Chlorpromazine (Thorazine) 25 mg TIDPRN PRN ORAL hiccup 07/08/20 15:15 08/07/20 15:14 07/08/20 17:01 Dextrose (Dextrose 50%) 25 ml Q30M PRN IV Hypoglycemia 07/08/20 07:15 10/02/20 18:44 Dextrose (Dextrose 50%) 50 ml Q30M PRN IV Hypoglycemia 07/08/20 07:00 10/02/20 16:59 Digoxin (Lanoxin) 0.125 mg DAILY ORAL 07/08/20 09:00 10/06/20 08:59 07/11/20 08:23 Diltiazem HCl (Cardizem Tab) 60 mg EVERY 8 HOURS ORAL 07/08/20 14:00 08/05/20 13:59 07/11/20 05:28 Epoetin Mode (Epoetin Mode(ESRD on dialysis)) 8,000 unit THU-THU-THU SUBQ 07/09/20 21:00 10/02/20 20:59 07/09/20 20:17 Heparin Sodium (Porcine) (Heparin Sod 1000 units/ml 10ml) 500 unit ONCE PRN IV for HD use 07/11/20 08:00 07/11/20 23:59 Morphine Sulfate (Morphine Sulfate) 2 mg Q4H PRN IVP pain 4-10 07/08/20 08:00 07/12/20 15:59 Nitroglycerin (Ntg) 0.4 mg Q5M PRN SL Prn Chest Pain 07/08/20 07:00 08/04/20 16:59 Polyethylene Glycol (Miralax) 17 gm DAILYPRN PRN ORAL Constipation 07/08/20 08:30 08/03/20 08:29 Sodium Chloride 1,000 ml @ 500 mls/hr Q2H PRN IVLG sbp<90 during hd 07/09/20 13:29 08/08/20 13:28 Sodium Chloride 1,000 ml @ 500 mls/hr Q2H PRN IVLG sbp<90 during hd 07/11/20 08:00 07/11/20 23:59 Vitamin B Complex/ Vit C/Folic Acid (Nephrovite) 1 tab DAILY ORAL 07/08/20 09:00 08/03/20 19:59 07/11/20 08:22 Zolpidem Tartrate (Ambien) 5 mg HSPRN PRN ORAL Insomnia 07/08/20 20:00 07/11/20 19:59 Darius Hyde MD Jul 11, 2020 12:03
--- NOTE | 2020-07-11 12:29 | General Progress Note ---
Assessment/Plan Problem List: (1) ESRD (end stage renal disease) on dialysis ICD Codes: N18.6 - End stage renal disease; Z99.2 - Dependence on renal dialysis SNOMED: 954563031 (2) Metabolic acidosis ICD Codes: E87.2 - Acidosis SNOMED: 44759561 (3) Basal cell carcinoma Assessment & Plan: questionable ICD Codes: C44.91 - Basal cell carcinoma of skin, unspecified SNOMED: 912152618 Qualifiers: Qualified Codes: C44.41 - Basal cell carcinoma of skin of scalp and neck (4) Profound anemia ICD Codes: D64.9 - Anemia, unspecified SNOMED: 867109621 Qualifiers: Qualified Codes: D64.9 - Anemia, unspecified (5) Elevated troponin ICD Codes: R79.89 - Other specified abnormal findings of blood chemistry SNOMED: 182922982, 368040931, 392286017 (6) Status post kidney transplant ICD Codes: Z94.0 - Kidney transplant status SNOMED: 135013115, 41698543, 84401396 Assessment/Plan: continue Rocaltrol abxs HD as tolerated follow labs continue Epogen an IV Iron Discussed with HD RN Subjective Allergies: Coded Allergies: ASPIRIN (Verified Allergy, Unknown, 07/04/20) Subjective pt was seen on HD Objective Last 24 Hour Vital Signs Date Time Temp Pulse Resp B/P (MAP) Pulse Ox O2 Delivery O2 Flow Rate FiO2 07/11/20 09:00 Room Air 07/11/20 08:23 77 07/11/20 07:39 97.9 77 22 135/64 (87) 97 07/11/20 05:28 78 129/69 07/11/20 04:00 99.9 78 18 129/69 (89) 100 07/11/20 00:00 98.1 72 18 132/81 (98) 96 07/10/20 21:54 71 144/70 07/10/20 20:13 Room Air 07/10/20 20:00 97.7 71 20 144/70 (94) 96 07/10/20 16:00 98.2 76 20 149/72 (97) 97 07/10/20 14:48 83 139/70 Intake and Output 07/10/20 07/11/20 19:00 07:00 Intake Total 860 ml 400 ml Output Total 1100 ml 1 ml Balance -240 ml 399 ml Intake Oral 860 ml 400 ml Output Urine Total 600 ml 1 ml Hemodialysis UF 500 ml # Voids 5 # Bowel Movements 1 Laboratory Tests 07/10/20 18:20: Digoxin Level 1.6 07/11/20 05:36: White Blood Count 7.4, Red Blood Count 2.74L, Hemoglobin 7.6L, Hematocrit 25.1L , Mean Corpuscular Volume 91, Mean Corpuscular Hemoglobin 27.7, Mean Corpuscular Hemoglobin Concent 30.4L, Red Cell Distribution Width 13.9, Platelet Count 127L, Mean Platelet Volume 8.4, Neutrophils (%) (Auto) , Lymphocytes (%) (Auto) , Monocytes (%) (Auto) , Eosinophils (%) (Auto) , Basophils (%) (Auto) , Differential Total Cells Counted 100, Neutrophils % ( Manual) 80H, Lymphocytes % (Manual) 7L, Monocytes % (Manual) 11H, Eosinophils % (Manual) 1, Basophils % (Manual) 1, Band Neutrophils 0, Platelet Estimate DecreasedL, Platelet Morphology Normal, Hypochromasia 1+, Ovalocytes Occasional , Schistocytes Rare, Sodium Level 136, Potassium Level 3.9, Chloride Level 97L, Carbon Dioxide Level 24, Anion Gap 15, Blood Urea Nitrogen 74H, Creatinine 7.7H , Estimat Glomerular Filtration Rate 7.3, Glucose Level 105, Calcium Level 8.8 Height (Feet): 5 Height (Inches): 7.00 Weight (Pounds): 134 Cardiovascular: normal rate Respiratory/Chest: lungs clear Edema: no edema noted Raulito Davey MD Jul 11, 2020 12:29
--- NOTE | 2020-07-11 12:57 | Surgery Progress Note ---
Surgery Progress Note Subjective Additional Comments wound care at bedside manual palpation with drainage noted less today dressings changed improving Objective Last 24 Hour Vital Signs Date Time Temp Pulse Resp B/P (MAP) Pulse Ox O2 Delivery O2 Flow Rate FiO2 07/11/20 12:00 98.2 75 18 146/79 (101) 98 07/11/20 09:00 Room Air 07/11/20 08:23 77 07/11/20 07:39 97.9 77 22 135/64 (87) 97 07/11/20 05:28 78 129/69 07/11/20 04:00 99.9 78 18 129/69 (89) 100 07/11/20 00:00 98.1 72 18 132/81 (98) 96 07/10/20 21:54 71 144/70 07/10/20 20:13 Room Air 07/10/20 20:00 97.7 71 20 144/70 (94) 96 07/10/20 16:00 98.2 76 20 149/72 (97) 97 07/10/20 14:48 83 139/70 I&O Intake and Output 07/10/20 07/11/20 19:00 07:00 Intake Total 860 ml 400 ml Output Total 1100 ml 1 ml Balance -240 ml 399 ml Intake Oral 860 ml 400 ml Output Urine Total 600 ml 1 ml Hemodialysis UF 500 ml # Voids 5 # Bowel Movements 1 Dressing: saturated Cardiovascular: RSR Respiratory: decreased breath sounds Abdomen: soft, non-tender, present bowel sounds Extremities: no tenderness, no cyanosis Laboratory Tests Test 07/10/20 18:20 07/11/20 05:36 Digoxin Level 1.6 NG/ML (0.5-2.0) White Blood Count 7.4 K/UL (4.8-10.8) Red Blood Count 2.74 M/UL (4.70-6.10) L Hemoglobin 7.6 G/DL (14.2-18.0) L Hematocrit 25.1 % (42.0-52.0) L Mean Corpuscular Volume 91 FL (80-99) Mean Corpuscular Hemoglobin 27.7 PG (27.0-31.0) Mean Corpuscular Hemoglobin Concent 30.4 G/DL (32.0-36.0) L Red Cell Distribution Width 13.9 % (11.6-14.8) Platelet Count 127 K/UL (150-450) L Mean Platelet Volume 8.4 FL (6.5-10.1) Neutrophils (%) (Auto) % (45.0-75.0) Lymphocytes (%) (Auto) % (20.0-45.0) Monocytes (%) (Auto) % (1.0-10.0) Eosinophils (%) (Auto) % (0.0-3.0) Basophils (%) (Auto) % (0.0-2.0) Differential Total Cells Counted 100 Neutrophils % (Manual) 80 % (45-75) H Lymphocytes % (Manual) 7 % (20-45) L Monocytes % (Manual) 11 % (1-10) H Eosinophils % (Manual) 1 % (0-3) Basophils % (Manual) 1 % (0-2) Band Neutrophils 0 % (0-8) Platelet Estimate Decreased L Platelet Morphology Normal Hypochromasia 1+ Ovalocytes Occasional Schistocytes Rare Sodium Level 136 MMOL/L (136-145) Potassium Level 3.9 MMOL/L (3.5-5.1) Chloride Level 97 MMOL/L (98-107) L Carbon Dioxide Level 24 MMOL/L (21-32) Anion Gap 15 mmol/L (5-15) Blood Urea Nitrogen 74 mg/dL (7-18) H Creatinine 7.7 MG/DL (0.55-1.30) H Estimat Glomerular Filtration Rate 7.3 mL/min (>60) Glucose Level 105 MG/DL (74-106) Calcium Level 8.8 MG/DL (8.5-10.1) Plan Problems: (1) Elevated troponin (2) Acute renal failure (3) Basal cell carcinoma Assessment & Plan: Right forehead scalp open wound potential basal cell carcinoma ulcerated raised edges significant slough in the center. Infected. Recommend local wound care and infection control. Will considerations for biopsy versus excisional biopsy with flap. Need medical optimization resuscitation first. Continue with current medical care. Discussed with patient and PCP. Will consider plans for local control upon improvement. Thank you fine partition patient's care. Wash wound daily with normal saline. Apply dressings 3 times daily. non excisional debridement at bedside wound much street light cleaner dressing TID gauze cont dressings will monitor (4) Metabolic acidosis (5) Profound anemia (6) Chest pain (7) ESRD (end stage renal disease) on dialysis (8) Mathew Brown Jul 11, 2020 12:57
--- NOTE | 2020-07-11 14:57 | Cardiac Electrophysiology PN ---
Assessment/Plan Assessment/Plan 1. Atrial fibrillation, rapid ventricular response with heart rate of 180s. Digoxin level today is 1.6. On Dig 0.125 daily, Cardizem 60 po tid and Eliquis 2.5 bid Echo EF 65%. 2. Troponin leak likely due to renal failure and atrial fib with RVR. ECho Nl EF 3. Profound anemia, hemoglobin of only 6. S/P 2 unit blood transfusion. Could be due to renal failure. Stool OB pending 4. Acute on chronic renal failure in a patient with history of kidney transplant. The patient currently is on hemodialysis under management of Dr. Hyde. 5. Thrombocytopenia. 6. History of hypertension. 7. History of left arm fistula. ORLIN RN Subjective Subjective Alert in NAD. Stool OB positive on 07/07. Had 2 PRBCs. Getting HD today Objective Last 24 Hour Vital Signs Date Time Temp Pulse Resp B/P (MAP) Pulse Ox O2 Delivery O2 Flow Rate FiO2 07/11/20 14:36 75 146/79 07/11/20 12:00 98.2 75 18 146/79 (101) 98 07/11/20 09:00 Room Air 07/11/20 08:23 77 07/11/20 07:39 97.9 77 22 135/64 (87) 97 07/11/20 05:28 78 129/69 07/11/20 04:00 99.9 78 18 129/69 (89) 100 07/11/20 00:00 98.1 72 18 132/81 (98) 96 07/10/20 21:54 71 144/70 07/10/20 20:13 Room Air 07/10/20 20:00 97.7 71 20 144/70 (94) 96 07/10/20 16:00 98.2 76 20 149/72 (97) 97 Intake and Output 07/10/20 07/11/20 19:00 07:00 Intake Total 860 ml 400 ml Output Total 1100 ml 1 ml Balance -240 ml 399 ml Intake Oral 860 ml 400 ml Output Urine Total 600 ml 1 ml Hemodialysis UF 500 ml # Voids 5 # Bowel Movements 1 Laboratory Tests Test 07/10/20 18:20 07/11/20 05:36 Digoxin Level 1.6 NG/ML (0.5-2.0) White Blood Count 7.4 K/UL (4.8-10.8) Red Blood Count 2.74 M/UL (4.70-6.10) L Hemoglobin 7.6 G/DL (14.2-18.0) L Hematocrit 25.1 % (42.0-52.0) L Mean Corpuscular Volume 91 FL (80-99) Mean Corpuscular Hemoglobin 27.7 PG (27.0-31.0) Mean Corpuscular Hemoglobin Concent 30.4 G/DL (32.0-36.0) L Red Cell Distribution Width 13.9 % (11.6-14.8) Platelet Count 127 K/UL (150-450) L Mean Platelet Volume 8.4 FL (6.5-10.1) Neutrophils (%) (Auto) % (45.0-75.0) Lymphocytes (%) (Auto) % (20.0-45.0) Monocytes (%) (Auto) % (1.0-10.0) Eosinophils (%) (Auto) % (0.0-3.0) Basophils (%) (Auto) % (0.0-2.0) Differential Total Cells Counted 100 Neutrophils % (Manual) 80 % (45-75) H Lymphocytes % (Manual) 7 % (20-45) L Monocytes % (Manual) 11 % (1-10) H Eosinophils % (Manual) 1 % (0-3) Basophils % (Manual) 1 % (0-2) Band Neutrophils 0 % (0-8) Platelet Estimate Decreased L Platelet Morphology Normal Hypochromasia 1+ Ovalocytes Occasional Schistocytes Rare Sodium Level 136 MMOL/L (136-145) Potassium Level 3.9 MMOL/L (3.5-5.1) Chloride Level 97 MMOL/L (98-107) L Carbon Dioxide Level 24 MMOL/L (21-32) Anion Gap 15 mmol/L (5-15) Blood Urea Nitrogen 74 mg/dL (7-18) H Creatinine 7.7 MG/DL (0.55-1.30) H Estimat Glomerular Filtration Rate 7.3 mL/min (>60) Glucose Level 105 MG/DL (74-106) Calcium Level 8.8 MG/DL (8.5-10.1) Objective HEAD AND NECK: Shows positive JVD. LUNGS: Decreased breath sounds. CARDIOVASCULAR: Shows irregularly irregular, tachycardic S1 and S2. ABDOMEN: Soft. EXTREMITIES: No pitting edema. Juaquin Tomlin MD Jul 11, 2020 14:57
[2020-07-11 16:00] VITALS: BP 116/62
[2020-07-11 20:00] VITALS: BP 132/74
[2020-07-11] MEDS: Epoetin Alfa-EPBX(ESRD on dialysis)4000 units/ml vial SUBQ SCH (21:03)
[2020-07-11] MEDS: Cefepime HCl 500 MG in D5W 55 ML IVPB SCH (21:07)
[2020-07-12] VITALS: BP 127/73
[2020-07-12] MEDS: dilTIAZem HCl 60mg tab ORAL SCH ×3 (05:04→21:22)
[2020-07-12 05:10] VITALS: BP 120/65
[2020-07-12 08:00] VITALS: BP 111/59
[2020-07-12] MEDS: Nephrovite tab (Rena-Vite) ORAL SCH (08:28)
[2020-07-12] MEDS: Eliquis 2.5mg tablet ORAL SCH ×2 (08:28→17:38)
[2020-07-12] MEDS: Digoxin 0.125mg tab ORAL SCH (08:28)
[2020-07-12] MEDS: Calcitriol 0.25mcg Cap ORAL SCH (08:28)
[2020-07-12 12:00] VITALS: BP 129/74
--- NOTE | 2020-07-12 12:40 | Infectious Diseases Prog Note ---
Assessment/Plan Assessment/Plan IMPRESSION: Sepsis with Staph aureus and E.coli Atrial fibrillation with RVR Necrotic skin lesion in the right temporal area, cleaned skin cancer,infected Rejected kidney transplant, Renal failure, Acidosis, Severe anemia, Hypertension. MRSA carrier RECOMMENDATIONS: Continue cefepime. We will follow up the cultures. Subjective ROS Limited/Unobtainable: Yes Constitutional: Reports: no symptoms Respiratory: Reports: no symptoms Gastrointestinal/Abdominal: Reports: no symptoms Genitourinary: Reports: no symptoms Allergies: Coded Allergies: ASPIRIN (Verified Allergy, Unknown, 07/04/20) Objective Last 24 Hour Vital Signs Date Time Temp Pulse Resp B/P (MAP) Pulse Ox O2 Delivery O2 Flow Rate FiO2 07/12/20 12:00 98.1 71 18 129/74 (92) 99 07/12/20 09:00 Room Air 07/12/20 08:28 81 07/12/20 08:00 97.9 81 20 111/59 (76) 98 07/12/20 05:10 98.1 78 20 120/65 (83) 97 07/12/20 05:04 78 120/65 07/12/20 00:00 98.8 79 19 127/73 (91) 97 07/11/20 21:02 86 132/74 07/11/20 21:00 Room Air 07/11/20 20:00 100.0 86 18 132/74 (93) 95 07/11/20 16:00 96.9 94 116/62 (80) 07/11/20 14:36 75 146/79 Height (Feet): 5 Height (Inches): 7.00 Weight (Pounds): 134 General Appearance: no acute distress HEENT: mucous membranes moist Respiratory/Chest: lungs clear Cardiovascular: normal rate Abdomen: soft, non tender Extremities: no edema Skin: other - R temporal ulcer Neurologic/Psychiatric: alert, oriented x 3, responsive Current Medications Medications (Trade) Dose Ordered Sig/Marco A Route PRN Reason Start Time Stop Time Status Last Admin Dose Admin Acetaminophen (Tylenol) 650 mg Q4H PRN ORAL Mild Pain (Pain Scale 1-3) 07/08/20 08:00 08/03/20 15:59 07/09/20 18:39 Apixaban (Eliquis) 2.5 mg BID ORAL 07/08/20 09:00 10/04/20 17:59 07/12/20 08:28 Calcitriol (Rocatrol) 0.25 mcg DAILY ORAL 07/08/20 09:00 10/05/20 13:59 07/12/20 08:28 Cefepime HCl 500 mg/Dextrose 55 ml @ 110 mls/hr Q24H IVPB 07/08/20 21:00 07/18/20 20:59 07/11/20 21:07 Chlorpromazine (Thorazine) 25 mg TIDPRN PRN ORAL hiccup 07/08/20 15:15 08/07/20 15:14 07/08/20 17:01 Dextrose (Dextrose 50%) 25 ml Q30M PRN IV Hypoglycemia 07/08/20 07:15 10/02/20 18:44 Dextrose (Dextrose 50%) 50 ml Q30M PRN IV Hypoglycemia 07/08/20 07:00 10/02/20 16:59 Digoxin (Lanoxin) 0.125 mg DAILY ORAL 07/08/20 09:00 10/06/20 08:59 07/12/20 08:28 Diltiazem HCl (Cardizem Tab) 60 mg EVERY 8 HOURS ORAL 07/08/20 14:00 08/05/20 13:59 07/12/20 05:04 Epoetin Mode (Epoetin Mode(ESRD on dialysis)) 8,000 unit THU-THU-THU SUBQ 07/09/20 21:00 10/02/20 20:59 07/11/20 21:03 Morphine Sulfate (Morphine Sulfate) 2 mg Q4H PRN IVP pain 4-10 07/08/20 08:00 07/12/20 15:59 Nitroglycerin (Ntg) 0.4 mg Q5M PRN SL Prn Chest Pain 07/08/20 07:00 08/04/20 16:59 Polyethylene Glycol (Miralax) 17 gm DAILYPRN PRN ORAL Constipation 07/08/20 08:30 08/03/20 08:29 Sodium Chloride 1,000 ml @ 500 mls/hr Q2H PRN IVLG sbp<90 during hd 07/09/20 13:29 08/08/20 13:28 Vitamin B Complex/ Vit C/Folic Acid (Nephrovite) 1 tab DAILY ORAL 07/08/20 09:00 08/03/20 19:59 07/12/20 08:28 Darius Hyde MD Jul 12, 2020 12:40
--- NOTE | 2020-07-12 13:29 | Surgery Progress Note ---
Surgery Progress Note Subjective Additional Comments improving wound much improved no n/v/f/c Objective Last 24 Hour Vital Signs Date Time Temp Pulse Resp B/P (MAP) Pulse Ox O2 Delivery O2 Flow Rate FiO2 07/12/20 12:00 98.1 71 18 129/74 (92) 99 07/12/20 09:00 Room Air 07/12/20 08:28 81 07/12/20 08:00 97.9 81 20 111/59 (76) 98 07/12/20 05:10 98.1 78 20 120/65 (83) 97 07/12/20 05:04 78 120/65 07/12/20 00:00 98.8 79 19 127/73 (91) 97 07/11/20 21:02 86 132/74 07/11/20 21:00 Room Air 07/11/20 20:00 100.0 86 18 132/74 (93) 95 07/11/20 16:00 96.9 94 116/62 (80) 07/11/20 14:36 75 146/79 I&O Intake and Output 07/11/20 07/12/20 19:00 07:00 Intake Total 800 ml 355 ml Output Total 1000 ml Balance -200 ml 355 ml Intake Oral 800 ml 300 ml IV Total 55 ml Hemodialysis UF 1000 ml # Voids 3 2 # Bowel Movements 1 Dressing: other Wound: other Cardiovascular: RSR Respiratory: decreased breath sounds Abdomen: soft, non-tender, present bowel sounds Extremities: no edema, no tenderness, no cyanosis Plan Problems: (1) Elevated troponin (2) Acute renal failure (3) Basal cell carcinoma Assessment & Plan: Right forehead scalp open wound potential basal cell carcinoma ulcerated raised edges significant slough in the center. Infected. Recommend local wound care and infection control. Will considerations for biopsy versus excisional biopsy with flap. Need medical optimization resuscitation first. Continue with current medical care. Discussed with patient and PCP. Will consider plans for local control upon improvement. Thank you fine partition patient's care. Wash wound daily with normal saline. Apply dressings 3 times daily. non excisional debridement at bedside wound much face cleaner dressing TID gauze cont dressings will monitor as improving looks more like infection that was out of control. wound healing well will cont local care and monitor (4) Metabolic acidosis (5) Profound anemia (6) Chest pain (7) ESRD (end stage renal disease) on dialysis (8) Mathew Brown Jul 12, 2020 13:28
[2020-07-12 16:00] VITALS: BP 138/73
--- NOTE | 2020-07-12 16:08 | Cardiac Electrophysiology PN ---
Assessment/Plan Assessment/Plan 1. Atrial fibrillation, rapid ventricular response with heart rate of 180s. Digoxin level 1.6. On Dig 0.125 daily, Cardizem 60 po tid and Eliquis 2.5 bid Echo EF 65%. 2. Troponin leak likely due to renal failure and atrial fib with RVR. ECho Nl EF 3. Profound anemia, hemoglobin of 6. S/P 2 unit blood transfusion. Could be due to renal failure. Stool OB pending 4. Acute on chronic renal failure in a patient with history of kidney transplant. The patient currently is on hemodialysis under management of Dr. Hyde. 5. Thrombocytopenia. 6. History of hypertension. 7. History of left arm fistula. ORLIN RN Subjective Subjective Alert in NAD. Stool OB positive on 07/07. Had 2 PRBCs. S/P HD yesterday. On iv Ab for Staph Aureus sepsis and EColi Bacteremia Objective Last 24 Hour Vital Signs Date Time Temp Pulse Resp B/P (MAP) Pulse Ox O2 Delivery O2 Flow Rate FiO2 07/12/20 14:36 71 129/74 07/12/20 12:00 98.1 71 18 129/74 (92) 99 07/12/20 09:00 Room Air 07/12/20 08:28 81 07/12/20 08:00 97.9 81 20 111/59 (76) 98 07/12/20 05:10 98.1 78 20 120/65 (83) 97 07/12/20 05:04 78 120/65 07/12/20 00:00 98.8 79 19 127/73 (91) 97 07/11/20 21:02 86 132/74 07/11/20 21:00 Room Air 07/11/20 20:00 100.0 86 18 132/74 (93) 95 Intake and Output 07/11/20 07/12/20 19:00 07:00 Intake Total 800 ml 355 ml Output Total 1000 ml Balance -200 ml 355 ml Intake Oral 800 ml 300 ml IV Total 55 ml Hemodialysis UF 1000 ml # Voids 3 2 # Bowel Movements 1 Objective HEAD AND NECK: Shows positive JVD. LUNGS: Decreased breath sounds. CARDIOVASCULAR: Shows irregularly irregular, tachycardic S1 and S2. ABDOMEN: Soft. EXTREMITIES: No pitting edema. Juaquin Tomlin MD Jul 12, 2020 16:08
--- NOTE | 2020-07-12 17:59 | General Progress Note ---
Assessment/Plan Problem List: (1) ESRD (end stage renal disease) on dialysis ICD Codes: N18.6 - End stage renal disease; Z99.2 - Dependence on renal dialysis SNOMED: 089837483 (2) Metabolic acidosis ICD Codes: E87.2 - Acidosis SNOMED: 47121249 (3) Basal cell carcinoma Assessment & Plan: questionable ICD Codes: C44.91 - Basal cell carcinoma of skin, unspecified SNOMED: 248381763 Qualifiers: Qualified Codes: C44.41 - Basal cell carcinoma of skin of scalp and neck (4) Profound anemia ICD Codes: D64.9 - Anemia, unspecified SNOMED: 912247996 Qualifiers: Qualified Codes: D64.9 - Anemia, unspecified (5) Elevated troponin ICD Codes: R79.89 - Other specified abnormal findings of blood chemistry SNOMED: 498082298, 253522400, 595582675 (6) Status post kidney transplant ICD Codes: Z94.0 - Kidney transplant status SNOMED: 714123452, 89885595, 28482131 Assessment/Plan: continue Rocaltrol abxs HD tomorrow follow labs continue Epogen an IV Iron Subjective Allergies: Coded Allergies: ASPIRIN (Verified Allergy, Unknown, 07/04/20) Subjective all noted Objective Last 24 Hour Vital Signs Date Time Temp Pulse Resp B/P (MAP) Pulse Ox O2 Delivery O2 Flow Rate FiO2 07/12/20 16:00 97.3 72 20 138/73 (94) 98 07/12/20 14:36 71 129/74 07/12/20 12:00 98.1 71 18 129/74 (92) 99 07/12/20 09:00 Room Air 07/12/20 08:28 81 07/12/20 08:00 97.9 81 20 111/59 (76) 98 07/12/20 05:10 98.1 78 20 120/65 (83) 97 07/12/20 05:04 78 120/65 07/12/20 00:00 98.8 79 19 127/73 (91) 97 07/11/20 21:02 86 132/74 07/11/20 21:00 Room Air 07/11/20 20:00 100.0 86 18 132/74 (93) 95 Intake and Output 07/11/20 07/12/20 19:00 07:00 Intake Total 800 ml 355 ml Output Total 1000 ml Balance -200 ml 355 ml Intake Oral 800 ml 300 ml IV Total 55 ml Hemodialysis UF 1000 ml # Voids 3 2 # Bowel Movements 1 Height (Feet): 5 Height (Inches): 7.00 Weight (Pounds): 134 Raulito Hyde MD Jul 12, 2020 17:59
[2020-07-12 20:00] VITALS: BP 128/68
[2020-07-12] MEDS: Cefepime HCl 500 MG in D5W 55 ML IVPB SCH (21:23)
[2020-07-13] VITALS: BP 118/65
[2020-07-13 04:00] VITALS: BP 119/67
[2020-07-13] MEDS: dilTIAZem HCl 60mg tab ORAL SCH ×3 (05:03→21:24)
[2020-07-13 06:06] LABS: HEMATOCRIT 25.3 % (42.0-52.0); HEMOGLOBIN 7.6 G/DL (14.2-18.0); MEAN CORPUSCULAR VOLUME 93 FL (80-99); PLATELET COUNT 151 K/UL (150-450); RED CELL DISTRIBUTION WIDTH 14.5 % (11.6-14.8); WHITE BLOOD COUNT 9.3 K/UL (4.8-10.8)
[2020-07-13 06:25] LABS: ANION GAP 17 mmol/L (5-15); BLOOD UREA NITROGEN 64 mg/dL (7-18); CALCIUM 8.7 MG/DL (8.5-10.1); CARBON DIOXIDE 15 MMOL/L (21-32); CHLORIDE 102 MMOL/L (98-107); CREATININE 7.5 MG/DL (0.55-1.30); POTASSIUM 4.8 MMOL/L (3.5-5.1); SODIUM 134 MMOL/L (136-145)
[2020-07-13 08:00] VITALS: BP 106/54
--- NOTE | 2020-07-13 08:27 | Cardiac Electrophysiology PN ---
Assessment/Plan Assessment/Plan 1. Atrial fibrillation, rapid ventricular response with heart rate of 180s. Digoxin level 1.6. On Dig 0.125 daily, Cardizem 60 po tid and Eliquis 2.5 bid Echo EF 65%. 2. Troponin leak likely due to renal failure and atrial fib with RVR. ECho Nl EF 3. Profound anemia, hemoglobin of 6. S/P 2 unit blood transfusion. Could be due to renal failure. FU GI 4. Acute on chronic renal failure in a patient with history of kidney transplant. Back on hemodialysis via Left arm AVF under management of Dr. Hyde. 5. Thrombocytopenia. 6. History of hypertension.On Cardizem and HD DW RN Subjective Subjective Alert in NAD. Stool OB positive on 07/07. Had 2 PRBCs. HD today is pending. On iv Ab for Staph Aureus sepsis and E. Coli Bacteremia Objective Last 24 Hour Vital Signs Date Time Temp Pulse Resp B/P (MAP) Pulse Ox O2 Delivery O2 Flow Rate FiO2 07/13/20 08:00 97.5 75 18 106/54 (71) 98 07/13/20 05:03 72 119/67 07/13/20 04:00 98.1 72 19 119/67 (84) 95 07/13/20 00:00 98.2 82 18 118/65 (82) 97 07/12/20 21:22 70 129/68 07/12/20 21:00 Room Air 07/12/20 20:00 98.0 70 18 128/68 (88) 95 07/12/20 16:00 97.3 72 20 138/73 (94) 98 07/12/20 14:36 71 129/74 07/12/20 12:00 98.1 71 18 129/74 (92) 99 07/12/20 09:00 Room Air 07/12/20 08:28 81 Intake and Output 07/12/20 07/13/20 18:59 06:59 Intake Total 500 ml 55 ml Balance 500 ml 55 ml Intake Oral 500 ml IV Total 55 ml # Voids 2 2 Laboratory Tests Test 07/13/20 05:34 White Blood Count 9.3 K/UL (4.8-10.8) Red Blood Count 2.70 M/UL (4.70-6.10) L Hemoglobin 7.6 G/DL (14.2-18.0) L Hematocrit 25.3 % (42.0-52.0) L Mean Corpuscular Volume 93 FL (80-99) Mean Corpuscular Hemoglobin 28.1 PG (27.0-31.0) Mean Corpuscular Hemoglobin Concent 30.1 G/DL (32.0-36.0) L Red Cell Distribution Width 14.5 % (11.6-14.8) Platelet Count 151 K/UL (150-450) Mean Platelet Volume 7.5 FL (6.5-10.1) Neutrophils (%) (Auto) % (45.0-75.0) Lymphocytes (%) (Auto) % (20.0-45.0) Monocytes (%) (Auto) % (1.0-10.0) Eosinophils (%) (Auto) % (0.0-3.0) Basophils (%) (Auto) % (0.0-2.0) Sodium Level 134 MMOL/L (136-145) L Potassium Level 4.8 MMOL/L (3.5-5.1) Chloride Level 102 MMOL/L (98-107) Carbon Dioxide Level 15 MMOL/L (21-32) L Anion Gap 17 mmol/L (5-15) H Blood Urea Nitrogen 64 mg/dL (7-18) H Creatinine 7.5 MG/DL (0.55-1.30) H Estimat Glomerular Filtration Rate 7.5 mL/min (>60) Glucose Level 97 MG/DL (74-106) Calcium Level 8.7 MG/DL (8.5-10.1) Objective HEAD AND NECK: Shows positive JVD. LUNGS: Decreased breath sounds. CARDIOVASCULAR: Shows irregularly irregular, tachycardic S1 and S2. ABDOMEN: Soft. EXTREMITIES: No pitting edema. Juaquin Tomlin MD Jul 13, 2020 08:27
[2020-07-13] MEDS: Digoxin 0.125mg tab ORAL SCH (08:40)
[2020-07-13] MEDS: Nephrovite tab (Rena-Vite) ORAL SCH (08:41)
[2020-07-13] MEDS: Calcitriol 0.25mcg Cap ORAL SCH (08:41)
[2020-07-13] MEDS: Eliquis 2.5mg tablet ORAL SCH ×2 (08:41→17:31)
[2020-07-13] MEDS ORDERED: Heparin Sod 1000 units/ml 10ml IV PRN (09:00)
--- NOTE | 2020-07-13 11:01 | Infectious Diseases Prog Note ---
Assessment/Plan Assessment/Plan IMPRESSION: Sepsis with Staph aureus and E.coli Atrial fibrillation with RVR Necrotic skin lesion in the right temporal area, cleaned skin cancer,infected Rejected kidney transplant, Renal failure, Acidosis, Severe anemia, Hypertension. MRSA carrier RECOMMENDATIONS: Continue cefepime. We will follow up the cultures. Subjective ROS Limited/Unobtainable: No Respiratory: Reports: no symptoms Gastrointestinal/Abdominal: Reports: no symptoms Genitourinary: Reports: no symptoms Allergies: Coded Allergies: ASPIRIN (Verified Allergy, Unknown, 07/04/20) Objective Last 24 Hour Vital Signs Date Time Temp Pulse Resp B/P (MAP) Pulse Ox O2 Delivery O2 Flow Rate FiO2 07/13/20 09:00 Room Air 07/13/20 08:40 75 07/13/20 08:00 97.5 75 18 106/54 (71) 98 07/13/20 05:03 72 119/67 07/13/20 04:00 98.1 72 19 119/67 (84) 95 07/13/20 00:00 98.2 82 18 118/65 (82) 97 07/12/20 21:22 70 129/68 07/12/20 21:00 Room Air 07/12/20 20:00 98.0 70 18 128/68 (88) 95 07/12/20 16:00 97.3 72 20 138/73 (94) 98 07/12/20 14:36 71 129/74 07/12/20 12:00 98.1 71 18 129/74 (92) 99 Height (Feet): 5 Height (Inches): 7.00 Weight (Pounds): 131 HEENT: mucous membranes moist Respiratory/Chest: lungs clear Cardiovascular: normal rate Abdomen: soft, non tender Extremities: no edema Skin: other - left temporal ulcer is improving Neurologic/Psychiatric: alert, oriented x 3, responsive Laboratory Tests Test 07/13/20 05:34 White Blood Count 9.3 K/UL (4.8-10.8) Red Blood Count 2.70 M/UL (4.70-6.10) L Hemoglobin 7.6 G/DL (14.2-18.0) L Hematocrit 25.3 % (42.0-52.0) L Mean Corpuscular Volume 93 FL (80-99) Mean Corpuscular Hemoglobin 28.1 PG (27.0-31.0) Mean Corpuscular Hemoglobin Concent 30.1 G/DL (32.0-36.0) L Red Cell Distribution Width 14.5 % (11.6-14.8) Platelet Count 151 K/UL (150-450) Mean Platelet Volume 7.5 FL (6.5-10.1) Neutrophils (%) (Auto) % (45.0-75.0) Lymphocytes (%) (Auto) % (20.0-45.0) Monocytes (%) (Auto) % (1.0-10.0) Eosinophils (%) (Auto) % (0.0-3.0) Basophils (%) (Auto) % (0.0-2.0) Sodium Level 134 MMOL/L (136-145) L Potassium Level 4.8 MMOL/L (3.5-5.1) Chloride Level 102 MMOL/L (98-107) Carbon Dioxide Level 15 MMOL/L (21-32) L Anion Gap 17 mmol/L (5-15) H Blood Urea Nitrogen 64 mg/dL (7-18) H Creatinine 7.5 MG/DL (0.55-1.30) H Estimat Glomerular Filtration Rate 7.5 mL/min (>60) Glucose Level 97 MG/DL (74-106) Calcium Level 8.7 MG/DL (8.5-10.1) Current Medications Medications (Trade) Dose Ordered Sig/Marco A Route PRN Reason Start Time Stop Time Status Last Admin Dose Admin Acetaminophen (Tylenol) 650 mg Q4H PRN ORAL Mild Pain (Pain Scale 1-3) 07/08/20 08:00 08/03/20 15:59 07/09/20 18:39 Apixaban (Eliquis) 2.5 mg BID ORAL 07/08/20 09:00 10/04/20 17:59 07/13/20 08:41 Calcitriol (Rocatrol) 0.25 mcg DAILY ORAL 07/08/20 09:00 10/05/20 13:59 07/13/20 08:41 Cefepime HCl 500 mg/Dextrose 55 ml @ 110 mls/hr Q24H IVPB 07/08/20 21:00 07/18/20 20:59 07/12/20 21:23 Chlorpromazine (Thorazine) 25 mg TIDPRN PRN ORAL hiccup 07/08/20 15:15 08/07/20 15:14 07/08/20 17:01 Dextrose (Dextrose 50%) 25 ml Q30M PRN IV Hypoglycemia 07/08/20 07:15 10/02/20 18:44 Dextrose (Dextrose 50%) 50 ml Q30M PRN IV Hypoglycemia 07/08/20 07:00 10/02/20 16:59 Digoxin (Lanoxin) 0.125 mg DAILY ORAL 07/08/20 09:00 10/06/20 08:59 07/13/20 08:40 Diltiazem HCl (Cardizem Tab) 60 mg EVERY 8 HOURS ORAL 07/08/20 14:00 08/05/20 13:59 07/13/20 05:03 Epoetin Mode (Epoetin Mode(ESRD on dialysis)) 8,000 unit THU- SUBQ 07/09/20 21:00 10/02/20 20:59 07/11/20 21:03 Heparin Sodium (Porcine) (Heparin Sod 1000 units/ml 10ml) 500 unit ONCE PRN IV DIALYSIS 07/13/20 09:00 07/13/20 23:59 Nitroglycerin (Ntg) 0.4 mg Q5M PRN SL Prn Chest Pain 07/08/20 07:00 08/04/20 16:59 Polyethylene Glycol (Miralax) 17 gm DAILYPRN PRN ORAL Constipation 07/08/20 08:30 08/03/20 08:29 Sodium Chloride 1,000 ml @ 500 mls/hr Q2H PRN IVLG sbp<90 during hd 07/09/20 13:29 08/08/20 13:28 Sodium Chloride 1,000 ml @ 500 mls/hr Q2H PRN IVLG sbp<90 during hd 07/13/20 09:00 07/13/20 23:59 Vitamin B Complex/ Vit C/Folic Acid (Nephrovite) 1 tab DAILY ORAL 07/08/20 09:00 08/03/20 19:59 07/13/20 08:41 Darius Hyde MD Jul 13, 2020 11:01
[2020-07-13 12:00] VITALS: BP 121/65
--- NOTE | 2020-07-13 13:32 | Surgery Progress Note ---
Surgery Progress Note Subjective Symptoms: improved, tolerating diet, passing flatus, pain decreased Objective Last 24 Hour Vital Signs Date Time Temp Pulse Resp B/P (MAP) Pulse Ox O2 Delivery O2 Flow Rate FiO2 07/13/20 12:00 98.0 68 20 121/65 (83) 99 07/13/20 09:00 Room Air 07/13/20 08:40 75 07/13/20 08:00 97.5 75 18 106/54 (71) 98 07/13/20 05:03 72 119/67 07/13/20 04:00 98.1 72 19 119/67 (84) 95 07/13/20 00:00 98.2 82 18 118/65 (82) 97 07/12/20 21:22 70 129/68 07/12/20 21:00 Room Air 07/12/20 20:00 98.0 70 18 128/68 (88) 95 07/12/20 16:00 97.3 72 20 138/73 (94) 98 07/12/20 14:36 71 129/74 I&O Intake and Output 07/12/20 07/13/20 19:00 07:00 Intake Total 500 ml 55 ml Balance 500 ml 55 ml Intake Oral 500 ml IV Total 55 ml # Voids 2 2 Dressing: saturated Wound: clean Cardiovascular: RSR Respiratory: clear Abdomen: soft, non-tender, present bowel sounds Extremities: no edema, no tenderness, no cyanosis Laboratory Tests Test 07/13/20 05:34 White Blood Count 9.3 K/UL (4.8-10.8) Red Blood Count 2.70 M/UL (4.70-6.10) L Hemoglobin 7.6 G/DL (14.2-18.0) L Hematocrit 25.3 % (42.0-52.0) L Mean Corpuscular Volume 93 FL (80-99) Mean Corpuscular Hemoglobin 28.1 PG (27.0-31.0) Mean Corpuscular Hemoglobin Concent 30.1 G/DL (32.0-36.0) L Red Cell Distribution Width 14.5 % (11.6-14.8) Platelet Count 151 K/UL (150-450) Mean Platelet Volume 7.5 FL (6.5-10.1) Neutrophils (%) (Auto) % (45.0-75.0) Lymphocytes (%) (Auto) % (20.0-45.0) Monocytes (%) (Auto) % (1.0-10.0) Eosinophils (%) (Auto) % (0.0-3.0) Basophils (%) (Auto) % (0.0-2.0) Sodium Level 134 MMOL/L (136-145) L Potassium Level 4.8 MMOL/L (3.5-5.1) Chloride Level 102 MMOL/L (98-107) Carbon Dioxide Level 15 MMOL/L (21-32) L Anion Gap 17 mmol/L (5-15) H Blood Urea Nitrogen 64 mg/dL (7-18) H Creatinine 7.5 MG/DL (0.55-1.30) H Estimat Glomerular Filtration Rate 7.5 mL/min (>60) Glucose Level 97 MG/DL (74-106) Calcium Level 8.7 MG/DL (8.5-10.1) Plan Problems: (1) Elevated troponin (2) Acute renal failure (3) Basal cell carcinoma Assessment & Plan: Right forehead scalp open wound potential basal cell carcinoma ulcerated raised edges significant slough in the center. Infected. Recommend local wound care and infection control. Will considerations for biopsy versus excisional biopsy with flap. Need medical optimization resuscitation first. Continue with current medical care. Discussed with patient and PCP. Will consider plans for local control upon improvement. Thank you fine partition patient's care. Wash wound daily with normal saline. Apply dressings 3 times daily. non excisional debridement at bedside wound much overhead cleaner maintainer dressing TID gauze cont dressings will monitor as improving looks more like infection that was out of control. wound healing well will cont local care and monitor (4) Metabolic acidosis (5) Profound anemia (6) Chest pain (7) ESRD (end stage renal disease) on dialysis (8) Mathew Brown Jul 13, 2020 13:32
--- NOTE | 2020-07-13 14:05 | General Progress Note ---
Assessment/Plan Problem List: (1) ESRD (end stage renal disease) on dialysis ICD Codes: N18.6 - End stage renal disease; Z99.2 - Dependence on renal dialysis SNOMED: 528741588 (2) Metabolic acidosis ICD Codes: E87.2 - Acidosis SNOMED: 66634103 (3) Basal cell carcinoma Assessment & Plan: questionable ICD Codes: C44.91 - Basal cell carcinoma of skin, unspecified SNOMED: 291217827 Qualifiers: Qualified Codes: C44.41 - Basal cell carcinoma of skin of scalp and neck (4) Profound anemia ICD Codes: D64.9 - Anemia, unspecified SNOMED: 179504805 Qualifiers: Qualified Codes: D64.9 - Anemia, unspecified (5) Elevated troponin ICD Codes: R79.89 - Other specified abnormal findings of blood chemistry SNOMED: 565175760, 260748051, 410376417 (6) Status post kidney transplant ICD Codes: Z94.0 - Kidney transplant status SNOMED: 467456512, 57661733, 64966229 Assessment/Plan: Discussed with Dr Shilpa donis HD today follow labs continue Epogen an IV Iron Subjective Allergies: Coded Allergies: ASPIRIN (Verified Allergy, Unknown, 07/04/20) Subjective feels ok Objective Last 24 Hour Vital Signs Date Time Temp Pulse Resp B/P (MAP) Pulse Ox O2 Delivery O2 Flow Rate FiO2 07/13/20 12:00 98.0 68 20 121/65 (83) 99 07/13/20 09:00 Room Air 07/13/20 08:40 75 07/13/20 08:00 97.5 75 18 106/54 (71) 98 07/13/20 05:03 72 119/67 07/13/20 04:00 98.1 72 19 119/67 (84) 95 07/13/20 00:00 98.2 82 18 118/65 (82) 97 07/12/20 21:22 70 129/68 07/12/20 21:00 Room Air 07/12/20 20:00 98.0 70 18 128/68 (88) 95 07/12/20 16:00 97.3 72 20 138/73 (94) 98 07/12/20 14:36 71 129/74 Intake and Output 07/12/20 07/13/20 19:00 07:00 Intake Total 500 ml 55 ml Balance 500 ml 55 ml Intake Oral 500 ml IV Total 55 ml # Voids 2 2 Laboratory Tests 07/13/20 05:34: White Blood Count 9.3, Red Blood Count 2.70L, Hemoglobin 7.6L, Hematocrit 25.3L , Mean Corpuscular Volume 93, Mean Corpuscular Hemoglobin 28.1, Mean Corpuscular Hemoglobin Concent 30.1L, Red Cell Distribution Width 14.5, Platelet Count 151, Mean Platelet Volume 7.5, Neutrophils (%) (Auto) , Lymphocytes (%) (Auto) , Monocytes (%) (Auto) , Eosinophils (%) (Auto) , Basophils (%) (Auto) , Sodium Level 134L, Potassium Level 4.8, Chloride Level 102, Carbon Dioxide Level 15L, Anion Gap 17H, Blood Urea Nitrogen 64H, Creatinine 7.5H, Estimat Glomerular Filtration Rate 7.5, Glucose Level 97, Calcium Level 8.7 Height (Feet): 5 Height (Inches): 7.00 Weight (Pounds): 131 Cardiovascular: normal rate Respiratory/Chest: lungs clear Edema: no edema noted Generalized Raulito Hyde MD Jul 13, 2020 14:05
[2020-07-13 16:00] VITALS: BP 102/62
[2020-07-13 20:00] VITALS: BP 110/102
[2020-07-13] MEDS: Cefepime HCl 500 MG in D5W 55 ML IVPB SCH (20:20)
[2020-07-13] MEDS: Epoetin Alfa-EPBX(ESRD on dialysis)4000 units/ml vial SUBQ SCH (20:27)
[2020-07-14] VITALS: BP 118/69
[2020-07-14 04:00] VITALS: BP 101/63
[2020-07-14] MEDS: dilTIAZem HCl 60mg tab ORAL SCH ×3 (05:39→21:31)
[2020-07-14 08:00] VITALS: BP 98/54
[2020-07-14] MEDS: Nephrovite tab (Rena-Vite) ORAL SCH (08:14)
[2020-07-14] MEDS: Eliquis 2.5mg tablet ORAL SCH ×2 (08:14→17:17)
[2020-07-14] MEDS: Digoxin 0.125mg tab ORAL SCH (08:15)
[2020-07-14] MEDS: Calcitriol 0.25mcg Cap ORAL SCH (08:15)
--- NOTE | 2020-07-14 09:37 | Surgery Progress Note ---
Surgery Progress Note Subjective Symptoms: improved, tolerating diet, passing flatus, BM Objective Last 24 Hour Vital Signs Date Time Temp Pulse Resp B/P (MAP) Pulse Ox O2 Delivery O2 Flow Rate FiO2 07/14/20 08:15 77 07/14/20 08:00 97.8 77 18 98/54 (69) 100 07/14/20 05:39 81 122/64 07/14/20 04:00 98.2 75 18 101/63 (76) 96 07/14/20 00:00 97.9 91 18 118/69 (85) 98 07/13/20 21:24 90 110/102 07/13/20 21:00 Room Air 07/13/20 20:00 98.2 90 18 110/102 (105) 98 07/13/20 16:45 92 102/62 07/13/20 16:00 98.5 92 20 102/62 (75) 100 07/13/20 12:00 98.0 68 20 121/65 (83) 99 I&O Intake and Output 07/13/20 07/14/20 19:00 07:00 Intake Total 960 ml 480 ml Output Total 1000 ml Balance -40 ml 480 ml Intake Oral 960 ml 480 ml Hemodialysis UF 1000 ml # Voids 3 Dressing: saturated Wound: clean Cardiovascular: RSR Respiratory: clear Abdomen: soft, non-tender, present bowel sounds Extremities: no edema, no tenderness, no cyanosis Plan Problems: (1) Elevated troponin (2) Acute renal failure (3) Basal cell carcinoma Assessment & Plan: Right forehead scalp open wound potential basal cell carcinoma ulcerated raised edges significant slough in the center. Infected. Recommend local wound care and infection control. Will considerations for biopsy versus excisional biopsy with flap. Need medical optimization resuscitation first. Continue with current medical care. Discussed with patient and PCP. Will consider plans for local control upon improvement. Thank you fine partition patient's care. Wash wound daily with normal saline. Apply dressings 3 times daily. non excisional debridement at bedside wound much supervisor bottle house cleaners dressing TID gauze cont dressings will monitor as improving looks more like infection that was out of control. wound healing well will cont local care and monitor (4) Metabolic acidosis (5) Profound anemia (6) Chest pain (7) ESRD (end stage renal disease) on dialysis (8) Mathew Brown Jul 14, 2020 09:37
[2020-07-14 12:00] VITALS: BP 113/67
--- NOTE | 2020-07-14 14:38 | General Progress Note ---
Assessment/Plan Problem List: (1) ESRD (end stage renal disease) on dialysis ICD Codes: N18.6 - End stage renal disease; Z99.2 - Dependence on renal dialysis SNOMED: 401249548 (2) Metabolic acidosis ICD Codes: E87.2 - Acidosis SNOMED: 41662812 (3) Basal cell carcinoma Assessment & Plan: questionable ICD Codes: C44.91 - Basal cell carcinoma of skin, unspecified SNOMED: 750379237 Qualifiers: Qualified Codes: C44.41 - Basal cell carcinoma of skin of scalp and neck (4) Profound anemia ICD Codes: D64.9 - Anemia, unspecified SNOMED: 144739809 Qualifiers: Qualified Codes: D64.9 - Anemia, unspecified (5) Elevated troponin ICD Codes: R79.89 - Other specified abnormal findings of blood chemistry SNOMED: 227436438, 937183149, 476652738 (6) Status post kidney transplant ICD Codes: Z94.0 - Kidney transplant status SNOMED: 336949250, 19195840, 48179502 Assessment/Plan: Discussed with RAE dnois HD Thursday follow labs continue Epogen an IV Iron Subjective Allergies: Coded Allergies: ASPIRIN (Verified Allergy, Unknown, 07/04/20) Subjective feels ok Objective Last 24 Hour Vital Signs Date Time Temp Pulse Resp B/P (MAP) Pulse Ox O2 Delivery O2 Flow Rate FiO2 07/14/20 13:49 76 113/67 07/14/20 12:00 97.7 76 18 113/67 (82) 97 07/14/20 09:00 Room Air 07/14/20 08:15 77 07/14/20 08:00 97.8 77 18 98/54 (69) 100 07/14/20 05:39 81 122/64 07/14/20 04:00 98.2 75 18 101/63 (76) 96 07/14/20 00:00 97.9 91 18 118/69 (85) 98 07/13/20 21:24 90 110/102 07/13/20 21:00 Room Air 07/13/20 20:00 98.2 90 18 110/102 (105) 98 07/13/20 16:45 92 102/62 07/13/20 16:00 98.5 92 20 102/62 (75) 100 Intake and Output 07/13/20 07/14/20 19:00 07:00 Intake Total 960 ml 480 ml Output Total 1000 ml Balance -40 ml 480 ml Intake Oral 960 ml 480 ml Hemodialysis UF 1000 ml # Voids 3 Height (Feet): 5 Height (Inches): 7.00 Weight (Pounds): 131 Cardiovascular: normal rate Respiratory/Chest: lungs clear Raulito Hyde MD Jul 14, 2020 14:38
--- NOTE | 2020-07-14 14:44 | Cardiac Electrophysiology PN ---
Assessment/Plan Assessment/Plan 1. Atrial fibrillation, rapid ventricular response with heart rate of 180s. Digoxin level 1.6. On Dig 0.125 daily, Cardizem 60 po tid and Eliquis 2.5 bid Echo EF 65%. 2. Troponin leak likely due to renal failure and atrial fib with RVR. ECho Nl EF 3. Profound anemia, hemoglobin of 6. S/P blood transfusion. Could be due to renal failure. FU GI 4. Acute on chronic renal failure in a patient with history of kidney transplant. Back on hemodialysis via Left arm AVF under management of Dr. Hyde. 5. Thrombocytopenia. 6. History of hypertension.On Cardizem and HD DW RN Subjective Subjective Alert in NAD. On HD. On iv Ab for Staph Aureus sepsis and E. Coli Bacteremia Objective Last 24 Hour Vital Signs Date Time Temp Pulse Resp B/P (MAP) Pulse Ox O2 Delivery O2 Flow Rate FiO2 07/14/20 13:49 76 113/67 07/14/20 12:00 97.7 76 18 113/67 (82) 97 07/14/20 09:00 Room Air 07/14/20 08:15 77 07/14/20 08:00 97.8 77 18 98/54 (69) 100 07/14/20 05:39 81 122/64 07/14/20 04:00 98.2 75 18 101/63 (76) 96 07/14/20 00:00 97.9 91 18 118/69 (85) 98 07/13/20 21:24 90 110/102 07/13/20 21:00 Room Air 07/13/20 20:00 98.2 90 18 110/102 (105) 98 07/13/20 16:45 92 102/62 07/13/20 16:00 98.5 92 20 102/62 (75) 100 Intake and Output 07/13/20 07/14/20 19:00 07:00 Intake Total 960 ml 480 ml Output Total 1000 ml Balance -40 ml 480 ml Intake Oral 960 ml 480 ml Hemodialysis UF 1000 ml # Voids 3 Objective HEAD AND NECK: Shows positive JVD. LUNGS: Decreased breath sounds. CARDIOVASCULAR: Shows irregularly irregular, tachycardic S1 and S2. ABDOMEN: Soft. EXTREMITIES: No pitting edema. Juaquin Tomlin MD Jul 14, 2020 14:44
[2020-07-14 16:09] VITALS: BP 121/66
[2020-07-14 20:00] VITALS: BP 109/59
[2020-07-14] MEDS: Cefepime HCl 500 MG in D5W 55 ML IVPB SCH (21:31)
[2020-07-15] VITALS: BP 111/73
[2020-07-15 04:00] VITALS: BP 115/70
[2020-07-15] MEDS: dilTIAZem HCl 60mg tab ORAL SCH ×3 (05:55→21:37)
[2020-07-15 08:00] VITALS: BP 119/72
[2020-07-15] MEDS: Nephrovite tab (Rena-Vite) ORAL SCH (08:15)
[2020-07-15] MEDS: Calcitriol 0.25mcg Cap ORAL SCH (08:15)
[2020-07-15] MEDS: Eliquis 2.5mg tablet ORAL SCH ×2 (08:16→17:09)
[2020-07-15] MEDS: Digoxin 0.125mg tab ORAL SCH (08:16)
--- NOTE | 2020-07-15 11:20 | General Progress Note ---
Assessment/Plan Problem List: (1) ESRD (end stage renal disease) on dialysis ICD Codes: N18.6 - End stage renal disease; Z99.2 - Dependence on renal dialysis SNOMED: 464866511 (2) Metabolic acidosis ICD Codes: E87.2 - Acidosis SNOMED: 65228935 (3) Profound anemia ICD Codes: D64.9 - Anemia, unspecified SNOMED: 651586653 Qualifiers: Qualified Codes: D64.9 - Anemia, unspecified (4) Elevated troponin ICD Codes: R79.89 - Other specified abnormal findings of blood chemistry SNOMED: 014012952, 892435099, 461068172 (5) Status post kidney transplant ICD Codes: Z94.0 - Kidney transplant status SNOMED: 665514767, 69542040, 83859746 Assessment/Plan: abxs HD Thursday follow labs continue Epogen an IV Iron Subjective Allergies: Coded Allergies: ASPIRIN (Verified Allergy, Unknown, 07/04/20) Subjective feels ok Objective Last 24 Hour Vital Signs Date Time Temp Pulse Resp B/P (MAP) Pulse Ox O2 Delivery O2 Flow Rate FiO2 07/15/20 09:00 Room Air 07/15/20 08:16 68 07/15/20 08:00 97.7 74 20 119/72 (88) 98 07/15/20 05:55 68 110/63 07/15/20 04:00 97.8 72 20 115/70 (85) 98 07/15/20 00:00 97.8 70 18 111/73 (86) 97 07/14/20 21:31 79 120/67 07/14/20 21:00 Room Air 07/14/20 20:00 98.1 74 18 109/59 (76) 96 07/14/20 16:09 97.7 79 18 121/66 (84) 98 07/14/20 13:49 76 113/67 07/14/20 12:00 97.7 76 18 113/67 (82) 97 Intake and Output 07/14/20 07/15/20 19:00 07:00 Intake Total 720 ml 300 ml Balance 720 ml 300 ml Intake Oral 720 ml 300 ml # Voids 3 Height (Feet): 5 Height (Inches): 7.00 Weight (Pounds): 131 Cardiovascular: normal rate Respiratory/Chest: lungs clear Raulito Hyde MD Jul 15, 2020 11:20
[2020-07-15 12:00] VITALS: BP 123/77
--- NOTE | 2020-07-15 13:09 | Surgery Progress Note ---
Surgery Progress Note Subjective Symptoms: improved, tolerating diet, passing flatus, BM Objective Last 24 Hour Vital Signs Date Time Temp Pulse Resp B/P (MAP) Pulse Ox O2 Delivery O2 Flow Rate FiO2 07/15/20 12:00 98.0 80 20 123/77 (92) 98 07/15/20 09:00 Room Air 07/15/20 08:16 68 07/15/20 08:00 97.7 74 20 119/72 (88) 98 07/15/20 05:55 68 110/63 07/15/20 04:00 97.8 72 20 115/70 (85) 98 07/15/20 00:00 97.8 70 18 111/73 (86) 97 07/14/20 21:31 79 120/67 07/14/20 21:00 Room Air 07/14/20 20:00 98.1 74 18 109/59 (76) 96 07/14/20 16:09 97.7 79 18 121/66 (84) 98 07/14/20 13:49 76 113/67 I&O Intake and Output 07/14/20 07/15/20 19:00 07:00 Intake Total 720 ml 300 ml Balance 720 ml 300 ml Intake Oral 720 ml 300 ml # Voids 3 Dressing: saturated Wound: clean Cardiovascular: RSR Respiratory: clear Abdomen: soft, non-tender, present bowel sounds Extremities: no edema, no tenderness, no cyanosis Plan Problems: (1) Elevated troponin (2) Acute renal failure (3) Basal cell carcinoma Assessment & Plan: Right forehead scalp open wound potential basal cell carcinoma ulcerated raised edges significant slough in the center. Infected. Recommend local wound care and infection control. Will considerations for biopsy versus excisional biopsy with flap. Need medical optimization resuscitation first. Continue with current medical care. Discussed with patient and PCP. Will consider plans for local control upon improvement. Thank you fine partition patient's care. Wash wound daily with normal saline. Apply dressings 3 times daily. non excisional debridement at bedside wound much spool cleaner dressing TID gauze cont dressings will monitor as improving looks more like infection that was out of control. wound healing well will cont local care and monitor wound 80% healed improving daily will monitor may not need surgery (4) Metabolic acidosis (5) Profound anemia (6) Chest pain (7) ESRD (end stage renal disease) on dialysis (8) cp Benyamini,Mathew Jul 15, 2020 13:09
--- NOTE | 2020-07-15 13:40 | Infectious Diseases Prog Note ---
Assessment/Plan Assessment/Plan IMPRESSION: Sepsis with Staph aureus and E.coli Atrial fibrillation with RVR Necrotic skin lesion in the right temporal area, cleaned skin cancer,infected Rejected kidney transplant, Renal failure, Acidosis, Severe anemia, Hypertension. MRSA carrier RECOMMENDATIONS: Continue cefepime. We will follow up the cultures. Subjective ROS Limited/Unobtainable: Yes Constitutional: Denies: fever Allergies: Coded Allergies: ASPIRIN (Verified Allergy, Unknown, 07/04/20) Objective Last 24 Hour Vital Signs Date Time Temp Pulse Resp B/P (MAP) Pulse Ox O2 Delivery O2 Flow Rate FiO2 07/15/20 13:21 80 123/77 07/15/20 12:00 98.0 80 20 123/77 (92) 98 07/15/20 09:00 Room Air 07/15/20 08:16 68 07/15/20 08:00 97.7 74 20 119/72 (88) 98 07/15/20 05:55 68 110/63 07/15/20 04:00 97.8 72 20 115/70 (85) 98 07/15/20 00:00 97.8 70 18 111/73 (86) 97 07/14/20 21:31 79 120/67 07/14/20 21:00 Room Air 07/14/20 20:00 98.1 74 18 109/59 (76) 96 07/14/20 16:09 97.7 79 18 121/66 (84) 98 07/14/20 13:49 76 113/67 Height (Feet): 5 Height (Inches): 7.00 Weight (Pounds): 131 General Appearance: no acute distress HEENT: mucous membranes moist Respiratory/Chest: lungs clear Cardiovascular: normal rate Abdomen: soft, non tender Extremities: no edema Skin: other - R temporal ulcer Neurologic/Psychiatric: other - sleeping Current Medications Medications (Trade) Dose Ordered Sig/Marco A Route PRN Reason Start Time Stop Time Status Last Admin Dose Admin Acetaminophen (Tylenol) 650 mg Q4H PRN ORAL Mild Pain (Pain Scale 1-3) 07/08/20 08:00 08/03/20 15:59 07/09/20 18:39 Apixaban (Eliquis) 2.5 mg BID ORAL 07/08/20 09:00 10/04/20 17:59 07/15/20 08:16 Calcitriol (Rocatrol) 0.25 mcg DAILY ORAL 07/08/20 09:00 10/05/20 13:59 07/15/20 08:15 Cefepime HCl 500 mg/Dextrose 55 ml @ 110 mls/hr Q24H IVPB 07/08/20 21:00 07/18/20 20:59 07/14/20 21:31 Chlorpromazine (Thorazine) 25 mg TIDPRN PRN ORAL hiccup 07/08/20 15:15 08/07/20 15:14 07/08/20 17:01 Dextrose (Dextrose 50%) 25 ml Q30M PRN IV Hypoglycemia 07/08/20 07:15 10/02/20 18:44 Dextrose (Dextrose 50%) 50 ml Q30M PRN IV Hypoglycemia 07/08/20 07:00 10/02/20 16:59 Digoxin (Lanoxin) 0.125 mg DAILY ORAL 07/08/20 09:00 10/06/20 08:59 07/15/20 08:16 Diltiazem HCl (Cardizem Tab) 60 mg EVERY 8 HOURS ORAL 07/08/20 14:00 08/05/20 13:59 07/15/20 13:21 Epoetin Mode (Epoetin Mode(ESRD on dialysis)) 8,000 unit THU-THU-THU SUBQ 07/09/20 21:00 10/02/20 20:59 07/13/20 20:27 Heparin Sodium (Porcine) (Heparin 5000 units/ml) 5,000 units POSTHD INJ 07/16/20 11:30 07/16/20 23:59 Nitroglycerin (Ntg) 0.4 mg Q5M PRN SL Prn Chest Pain 07/08/20 07:00 08/04/20 16:59 Polyethylene Glycol (Miralax) 17 gm DAILYPRN PRN ORAL Constipation 07/08/20 08:30 08/03/20 08:29 Sodium Chloride 1,000 ml @ 500 mls/hr Q2H PRN IVLG sbp<90 during hd 07/16/20 11:21 07/16/20 23:59 Vitamin B Complex/ Vit C/Folic Acid (Nephrovite) 1 tab DAILY ORAL 07/08/20 09:00 08/03/20 19:59 07/15/20 08:15 Darius Hyde MD Jul 15, 2020 13:40
[2020-07-15 16:00] VITALS: BP 132/81
--- NOTE | 2020-07-15 16:22 | Cardiac Electrophysiology PN ---
Assessment/Plan Assessment/Plan 1. Atrial fibrillation, rapid ventricular response with heart rate of 180s. Digoxin level 1.6. On Dig 0.125 daily, Cardizem 60 po tid and Eliquis 2.5 bid Echo EF 65%. 2. Troponin leak likely due to renal failure and atrial fib with RVR. ECho Nl EF 3. Profound anemia, hemoglobin of 6. S/P blood transfusion. Could be due to renal failure. FU GI 4. Acute on chronic renal failure in a patient with history of kidney transplan t. Back on hemodialysis via Left arm AVF under management of Dr. Alisha Hyde. 5. Thrombocytopenia. 6. History of hypertension.On Cardizem and HD 7. Sepsis with Staph aureus and E.coli on iv Abx per Dr Eulalia ORDAZ RN Subjective Subjective Alert in NAD. On iv Ab for Staph Aureus sepsis and E. Coli Bacteremia. HD pending tomorrow Objective Last 24 Hour Vital Signs Date Time Temp Pulse Resp B/P (MAP) Pulse Ox O2 Delivery O2 Flow Rate FiO2 07/15/20 13:21 80 123/77 07/15/20 12:00 98.0 80 20 123/77 (92) 98 07/15/20 09:00 Room Air 07/15/20 08:16 68 07/15/20 08:00 97.7 74 20 119/72 (88) 98 07/15/20 05:55 68 110/63 07/15/20 04:00 97.8 72 20 115/70 (85) 98 07/15/20 00:00 97.8 70 18 111/73 (86) 97 07/14/20 21:31 79 120/67 07/14/20 21:00 Room Air 07/14/20 20:00 98.1 74 18 109/59 (76) 96 Intake and Output 07/14/20 07/15/20 19:00 07:00 Intake Total 720 ml 300 ml Balance 720 ml 300 ml Intake Oral 720 ml 300 ml # Voids 3 Objective HEAD AND NECK: Shows positive JVD. LUNGS: Decreased breath sounds. CARDIOVASCULAR: Shows irregularly irregular, tachycardic S1 and S2. ABDOMEN: Soft. EXTREMITIES: No pitting edema.Left arm AVF Juaquin Tomlin MD Jul 15, 2020 16:22
[2020-07-15 20:00] VITALS: BP 131/69
[2020-07-15] MEDS: Cefepime HCl 500 MG in D5W 55 ML IVPB SCH (21:37)
[2020-07-16] VITALS (11 sets, daily range): BP systolic 79–148; BP diastolic 49–87
[2020-07-16] MEDS: dilTIAZem HCl 60mg tab ORAL SCH ×3 (06:00→22:38)
[2020-07-16 08:02] LABS: BASOPHILS % (AUTO) 0.9 % (0.0-2.0); EOSINOPHILS % (AUTO) 0.6 % (0.0-3.0); HEMATOCRIT 28.9 % (42.0-52.0); HEMOGLOBIN 8.9 G/DL (14.2-18.0); LYMPHOCYTES % (AUTO) 26.1 % (20.0-45.0); MEAN CORPUSCULAR VOLUME 93 FL (80-99); MONOCYTES % (AUTO) 10.7 % (1.0-10.0); NEUTROPHILS % (AUTO) 61.7 % (45.0-75.0); PLATELET COUNT 169 K/UL (150-450); RED CELL DISTRIBUTION WIDTH 16.2 % (11.6-14.8); WHITE BLOOD COUNT 8.1 K/UL (4.8-10.8)
[2020-07-16 08:06] LABS: ANION GAP 17 mmol/L (5-15); BLOOD UREA NITROGEN 75 mg/dL (7-18); CALCIUM 9.2 MG/DL (8.5-10.1); CARBON DIOXIDE 18 MMOL/L (21-32); CHLORIDE 101 MMOL/L (98-107); CREATININE 9.6 MG/DL (0.55-1.30); POTASSIUM 4.1 MMOL/L (3.5-5.1); SODIUM 136 MMOL/L (136-145)
[2020-07-16] MEDS: Nephrovite tab (Rena-Vite) ORAL SCH (08:34)
[2020-07-16] MEDS: Calcitriol 0.25mcg Cap ORAL SCH (08:34)
[2020-07-16] MEDS: Eliquis 2.5mg tablet ORAL SCH ×2 (08:34→17:04)
[2020-07-16] MEDS: Digoxin 0.125mg tab ORAL SCH (08:35)
--- NOTE | 2020-07-16 11:03 | Infectious Diseases Prog Note ---
Assessment/Plan Assessment/Plan IMPRESSION: Sepsis with Staph aureus and E.coli Atrial fibrillation with RVR Necrotic skin lesion in the right temporal area, cleaned skin cancer,infected Rejected kidney transplant, Renal failure, Acidosis, Severe anemia, Hypertension. MRSA carrier RECOMMENDATIONS: Continue cefepime. Subjective ROS Limited/Unobtainable: Yes Allergies: Coded Allergies: ASPIRIN (Verified Allergy, Unknown, 07/04/20) Objective Last 24 Hour Vital Signs Date Time Temp Pulse Resp B/P (MAP) Pulse Ox O2 Delivery O2 Flow Rate FiO2 07/16/20 09:00 Room Air 07/16/20 08:35 74 07/16/20 08:00 98.0 74 18 125/70 (88) 98 07/16/20 04:00 97.6 75 20 120/70 (87) 98 07/16/20 00:00 97.3 73 20 118/66 (83) 97 07/15/20 21:37 73 124/68 07/15/20 21:00 Room Air 07/15/20 20:00 99.5 67 20 131/69 (89) 98 07/15/20 16:00 98.1 84 20 132/81 (98) 97 07/15/20 13:21 80 123/77 07/15/20 12:00 98.0 80 20 123/77 (92) 98 Height (Feet): 5 Height (Inches): 7.00 Weight (Pounds): 56 General Appearance: no acute distress HEENT: mucous membranes moist Respiratory/Chest: lungs clear Cardiovascular: normal rate Abdomen: soft, non tender Extremities: no edema Skin: other - R temporal wound Neurologic/Psychiatric: other - sleeping Laboratory Tests Test 07/16/20 07:40 White Blood Count 8.1 K/UL (4.8-10.8) Red Blood Count 3.10 M/UL (4.70-6.10) L Hemoglobin 8.9 G/DL (14.2-18.0) L Hematocrit 28.9 % (42.0-52.0) L Mean Corpuscular Volume 93 FL (80-99) Mean Corpuscular Hemoglobin 28.8 PG (27.0-31.0) Mean Corpuscular Hemoglobin Concent 31.0 G/DL (32.0-36.0) L Red Cell Distribution Width 16.2 % (11.6-14.8) H Platelet Count 169 K/UL (150-450) Mean Platelet Volume 5.9 FL (6.5-10.1) L Neutrophils (%) (Auto) 61.7 % (45.0-75.0) Lymphocytes (%) (Auto) 26.1 % (20.0-45.0) Monocytes (%) (Auto) 10.7 % (1.0-10.0) H Eosinophils (%) (Auto) 0.6 % (0.0-3.0) Basophils (%) (Auto) 0.9 % (0.0-2.0) Sodium Level 136 MMOL/L (136-145) Potassium Level 4.1 MMOL/L (3.5-5.1) Chloride Level 101 MMOL/L (98-107) Carbon Dioxide Level 18 MMOL/L (21-32) L Anion Gap 17 mmol/L (5-15) H Blood Urea Nitrogen 75 mg/dL (7-18) H Creatinine 9.6 MG/DL (0.55-1.30) H Estimat Glomerular Filtration Rate 5.7 mL/min (>60) Glucose Level 117 MG/DL (74-106) H Calcium Level 9.2 MG/DL (8.5-10.1) Current Medications Medications (Trade) Dose Ordered Sig/Marco A Route PRN Reason Start Time Stop Time Status Last Admin Dose Admin Acetaminophen (Tylenol) 650 mg Q4H PRN ORAL Mild Pain (Pain Scale 1-3) 07/08/20 08:00 08/03/20 15:59 07/09/20 18:39 Apixaban (Eliquis) 2.5 mg BID ORAL 07/08/20 09:00 10/04/20 17:59 07/16/20 08:34 Calcitriol (Rocatrol) 0.25 mcg DAILY ORAL 07/08/20 09:00 10/05/20 13:59 07/16/20 08:34 Cefepime HCl 500 mg/Dextrose 55 ml @ 110 mls/hr Q24H IVPB 07/08/20 21:00 07/18/20 20:59 07/15/20 21:37 Chlorpromazine (Thorazine) 25 mg TIDPRN PRN ORAL hiccup 07/08/20 15:15 08/07/20 15:14 07/08/20 17:01 Dextrose (Dextrose 50%) 25 ml Q30M PRN IV Hypoglycemia 07/08/20 07:15 10/02/20 18:44 Dextrose (Dextrose 50%) 50 ml Q30M PRN IV Hypoglycemia 07/08/20 07:00 10/02/20 16:59 Digoxin (Lanoxin) 0.125 mg DAILY ORAL 07/08/20 09:00 10/06/20 08:59 07/16/20 08:35 Diltiazem HCl (Cardizem Tab) 60 mg EVERY 8 HOURS ORAL 07/08/20 14:00 08/05/20 13:59 07/15/20 21:37 Epoetin Mode (Epoetin Mode(ESRD on dialysis)) 8,000 unit THU-THU-THU SUBQ 07/09/20 21:00 10/02/20 20:59 07/13/20 20:27 Heparin Sodium (Porcine) (Heparin 5000 units/ml) 5,000 units POSTHD INJ 07/16/20 11:30 07/16/20 23:59 Nitroglycerin (Ntg) 0.4 mg Q5M PRN SL Prn Chest Pain 07/08/20 07:00 08/04/20 16:59 Polyethylene Glycol (Miralax) 17 gm DAILYPRN PRN ORAL Constipation 07/08/20 08:30 08/03/20 08:29 Sodium Chloride 1,000 ml @ 500 mls/hr Q2H PRN IVLG sbp<90 during hd 07/16/20 11:21 07/16/20 23:59 Vitamin B Complex/ Vit C/Folic Acid (Nephrovite) 1 tab DAILY ORAL 07/08/20 09:00 08/03/20 19:59 07/16/20 08:34 Darius Hyde MD Jul 16, 2020 11:03
--- NOTE | 2020-07-16 11:15 | Surgery Progress Note ---
Surgery Progress Note Subjective Symptoms: improved, tolerating diet, passing flatus, pain decreased Objective Last 24 Hour Vital Signs Date Time Temp Pulse Resp B/P (MAP) Pulse Ox O2 Delivery O2 Flow Rate FiO2 07/16/20 09:00 Room Air 07/16/20 08:35 74 07/16/20 08:00 98.0 74 18 125/70 (88) 98 07/16/20 04:00 97.6 75 20 120/70 (87) 98 07/16/20 00:00 97.3 73 20 118/66 (83) 97 07/15/20 21:37 73 124/68 07/15/20 21:00 Room Air 07/15/20 20:00 99.5 67 20 131/69 (89) 98 07/15/20 16:00 98.1 84 20 132/81 (98) 97 07/15/20 13:21 80 123/77 07/15/20 12:00 98.0 80 20 123/77 (92) 98 I&O Intake and Output 07/15/20 07/16/20 19:00 07:00 Intake Total 360 ml 250 ml Balance 360 ml 250 ml Intake Oral 360 ml 250 ml # Voids 2 3 # Bowel Movements 1 Dressing: dry Wound: clean Cardiovascular: RSR Respiratory: clear Abdomen: soft, non-tender, present bowel sounds Extremities: no edema, no tenderness, no cyanosis Laboratory Tests Test 07/16/20 07:40 White Blood Count 8.1 K/UL (4.8-10.8) Red Blood Count 3.10 M/UL (4.70-6.10) L Hemoglobin 8.9 G/DL (14.2-18.0) L Hematocrit 28.9 % (42.0-52.0) L Mean Corpuscular Volume 93 FL (80-99) Mean Corpuscular Hemoglobin 28.8 PG (27.0-31.0) Mean Corpuscular Hemoglobin Concent 31.0 G/DL (32.0-36.0) L Red Cell Distribution Width 16.2 % (11.6-14.8) H Platelet Count 169 K/UL (150-450) Mean Platelet Volume 5.9 FL (6.5-10.1) L Neutrophils (%) (Auto) 61.7 % (45.0-75.0) Lymphocytes (%) (Auto) 26.1 % (20.0-45.0) Monocytes (%) (Auto) 10.7 % (1.0-10.0) H Eosinophils (%) (Auto) 0.6 % (0.0-3.0) Basophils (%) (Auto) 0.9 % (0.0-2.0) Sodium Level 136 MMOL/L (136-145) Potassium Level 4.1 MMOL/L (3.5-5.1) Chloride Level 101 MMOL/L (98-107) Carbon Dioxide Level 18 MMOL/L (21-32) L Anion Gap 17 mmol/L (5-15) H Blood Urea Nitrogen 75 mg/dL (7-18) H Creatinine 9.6 MG/DL (0.55-1.30) H Estimat Glomerular Filtration Rate 5.7 mL/min (>60) Glucose Level 117 MG/DL (74-106) H Calcium Level 9.2 MG/DL (8.5-10.1) Plan Problems: (1) Elevated troponin (2) Acute renal failure (3) Basal cell carcinoma Assessment & Plan: Right forehead scalp open wound potential basal cell carcinoma ulcerated raised edges significant slough in the center. Infected. Recommend local wound care and infection control. Will considerations for biopsy versus excisional biopsy with flap. Need medical optimization resuscitation first. Continue with current medical care. Discussed with patient and PCP. Will consider plans for local control upon improvement. Thank you fine partition patient's care. Wash wound daily with normal saline. Apply dressings 3 times daily. non excisional debridement at bedside wound much millstone cleaner dressing TID gauze cont dressings will monitor as improving looks more like infection that was out of control. wound healing well will cont local care and monitor wound 80% healed improving daily will monitor may not need surgery (4) Metabolic acidosis (5) Profound anemia (6) Chest pain (7) ESRD (end stage renal disease) on dialysis (8) Mathew Brown Jul 16, 2020 11:15
[2020-07-16] MEDS ORDERED: Heparin 5000 units/ml inj INJ SCH (11:30)
--- NOTE | 2020-07-16 14:11 | Cardiac Electrophysiology PN ---
Assessment/Plan Assessment/Plan 1. Atrial fibrillation, rapid ventricular response with heart rate of 180s. Digoxin level 1.6. On Dig 0.125 daily, Cardizem 60 po tid and Eliquis 2.5 bid Echo EF 65%. 2. Troponin leak likely due to renal failure and atrial fib with RVR. ECho Nl EF 3. Profound anemia, hemoglobin of 6. S/P blood transfusion. Could be due to renal failure. FU GI 4. Acute on chronic renal failure in a patient with history of kidney transplan t. Back on hemodialysis via Left arm AVF under management of Dr. Alisha Hyde. 5. Thrombocytopenia. 6. History of hypertension.On Cardizem and HD 7. Sepsis with Staph aureus and E.coli on iv Abx per Dr Eulalia ORDAZ RN Subjective Subjective Alert in NAD. On iv Ab for Staph Aureus sepsis and E. Coli Bacteremia. HD pending today Objective Last 24 Hour Vital Signs Date Time Temp Pulse Resp B/P (MAP) Pulse Ox O2 Delivery O2 Flow Rate FiO2 07/16/20 13:45 80 127/68 07/16/20 12:00 98.0 80 19 127/68 (87) 98 07/16/20 09:00 Room Air 07/16/20 08:35 74 07/16/20 08:00 98.0 74 18 125/70 (88) 98 07/16/20 04:00 97.6 75 20 120/70 (87) 98 07/16/20 00:00 97.3 73 20 118/66 (83) 97 07/15/20 21:37 73 124/68 07/15/20 21:00 Room Air 07/15/20 20:00 99.5 67 20 131/69 (89) 98 07/15/20 16:00 98.1 84 20 132/81 (98) 97 Intake and Output 07/15/20 07/16/20 19:00 07:00 Intake Total 360 ml 250 ml Balance 360 ml 250 ml Intake Oral 360 ml 250 ml # Voids 2 3 # Bowel Movements 1 Laboratory Tests Test 07/16/20 07:40 White Blood Count 8.1 K/UL (4.8-10.8) Red Blood Count 3.10 M/UL (4.70-6.10) L Hemoglobin 8.9 G/DL (14.2-18.0) L Hematocrit 28.9 % (42.0-52.0) L Mean Corpuscular Volume 93 FL (80-99) Mean Corpuscular Hemoglobin 28.8 PG (27.0-31.0) Mean Corpuscular Hemoglobin Concent 31.0 G/DL (32.0-36.0) L Red Cell Distribution Width 16.2 % (11.6-14.8) H Platelet Count 169 K/UL (150-450) Mean Platelet Volume 5.9 FL (6.5-10.1) L Neutrophils (%) (Auto) 61.7 % (45.0-75.0) Lymphocytes (%) (Auto) 26.1 % (20.0-45.0) Monocytes (%) (Auto) 10.7 % (1.0-10.0) H Eosinophils (%) (Auto) 0.6 % (0.0-3.0) Basophils (%) (Auto) 0.9 % (0.0-2.0) Sodium Level 136 MMOL/L (136-145) Potassium Level 4.1 MMOL/L (3.5-5.1) Chloride Level 101 MMOL/L (98-107) Carbon Dioxide Level 18 MMOL/L (21-32) L Anion Gap 17 mmol/L (5-15) H Blood Urea Nitrogen 75 mg/dL (7-18) H Creatinine 9.6 MG/DL (0.55-1.30) H Estimat Glomerular Filtration Rate 5.7 mL/min (>60) Glucose Level 117 MG/DL (74-106) H Calcium Level 9.2 MG/DL (8.5-10.1) Objective HEAD AND NECK: Shows positive JVD. LUNGS: Decreased breath sounds. CARDIOVASCULAR: Shows irregularly irregular, tachycardic S1 and S2. ABDOMEN: Soft. EXTREMITIES: No pitting edema.Left arm AVF Juaquin Tomlin MD Jul 16, 2020 14:11
[2020-07-16] MEDS: Epoetin Alfa-EPBX(ESRD on dialysis)4000 units/ml vial SUBQ SCH (21:30)
[2020-07-16] MEDS: Nitroglycerin Subl 0.4mg tab SL PRN ×3 (22:24→22:44)
--- NOTE | 2020-07-16 23:09 | General Progress Note ---
Assessment/Plan Problem List: (1) ESRD (end stage renal disease) on dialysis ICD Codes: N18.6 - End stage renal disease; Z99.2 - Dependence on renal dialysis SNOMED: 635393284 (2) Metabolic acidosis ICD Codes: E87.2 - Acidosis SNOMED: 43802482 (3) Profound anemia ICD Codes: D64.9 - Anemia, unspecified SNOMED: 563371392 Qualifiers: Qualified Codes: D64.9 - Anemia, unspecified (4) Elevated troponin ICD Codes: R79.89 - Other specified abnormal findings of blood chemistry SNOMED: 801549953, 668993460, 205516270 (5) Status post kidney transplant ICD Codes: Z94.0 - Kidney transplant status SNOMED: 751387232, 81861731, 52917527 Assessment/Plan: abxs HD today follow labs continue Epogen an IV Iron Subjective Allergies: Coded Allergies: ASPIRIN (Verified Allergy, Unknown, 07/04/20) Subjective seen earlier today Objective Last 24 Hour Vital Signs Date Time Temp Pulse Resp B/P (MAP) Pulse Ox O2 Delivery O2 Flow Rate FiO2 07/16/20 22:44 99/38 07/16/20 22:38 111 104/66 07/16/20 22:36 104/66 07/16/20 22:28 100 Nasal Cannula 2.0 28 07/16/20 22:24 109/75 07/16/20 20:00 98.0 93 19 148/87 (107) 98 07/16/20 16:00 98.1 83 19 131/72 (91) 98 07/16/20 13:45 80 127/68 07/16/20 12:00 98.0 80 19 127/68 (87) 98 07/16/20 09:00 Room Air 07/16/20 08:35 74 07/16/20 08:00 98.0 74 18 125/70 (88) 98 07/16/20 04:00 97.6 75 20 120/70 (87) 98 07/16/20 00:00 97.3 73 20 118/66 (83) 97 Intake and Output 07/15/20 07/16/20 19:00 07:00 Intake Total 360 ml 250 ml Balance 360 ml 250 ml Intake Oral 360 ml 250 ml # Voids 2 3 # Bowel Movements 1 Laboratory Tests 07/16/20 07:40: White Blood Count 8.1, Red Blood Count 3.10L, Hemoglobin 8.9L, Hematocrit 28.9L , Mean Corpuscular Volume 93, Mean Corpuscular Hemoglobin 28.8, Mean Corpuscular Hemoglobin Concent 31.0L, Red Cell Distribution Width 16.2H, Platelet Count 169, Mean Platelet Volume 5.9L, Neutrophils (%) (Auto) 61.7, Lymphocytes (%) (Auto) 26.1, Monocytes (%) (Auto) 10.7H, Eosinophils (%) (Auto) 0.6, Basophils (%) (Auto) 0.9, Sodium Level 136, Potassium Level 4.1, Chloride Level 101, Carbon Dioxide Level 18L, Anion Gap 17H, Blood Urea Nitrogen 75H, Creatinine 9.6H, Estimat Glomerular Filtration Rate 5.7, Glucose Level 117H, Calcium Level 9.2 Height (Feet): 5 Height (Inches): 7.00 Weight (Pounds): 56 Cardiovascular: normal rate Respiratory/Chest: lungs clear Edema: no edema noted Generalized Raulito Hyde MD Jul 16, 2020 23:09
[2020-07-16] MEDS: Cefepime HCl 500 MG in D5W 55 ML IVPB SCH (23:31)
[2020-07-17] VITALS (21 sets, daily range): BP systolic 97–159; BP diastolic 48–75
[2020-07-17] MEDS: Nitroglycerin Subl 0.4mg tab SL PRN ×2 (04:06→04:46)
[2020-07-17] MEDS: dilTIAZem HCl 60mg tab ORAL SCH ×3 (06:00→22:12)
[2020-07-17] MEDS: Digoxin 0.125mg tab ORAL SCH (08:46)
[2020-07-17] MEDS: Eliquis 2.5mg tablet ORAL SCH ×2 (08:46→17:23)
[2020-07-17] MEDS: Calcitriol 0.25mcg Cap ORAL SCH (08:46)
[2020-07-17] MEDS: Nephrovite tab (Rena-Vite) ORAL SCH (08:46)
[2020-07-17 09:44] LABS: BASOPHILS % (AUTO) 1.3 % (0.0-2.0); EOSINOPHILS % (AUTO) 0.5 % (0.0-3.0); HEMATOCRIT 31.1 % (42.0-52.0); HEMOGLOBIN 9.7 G/DL (14.2-18.0); LYMPHOCYTES % (AUTO) 24.6 % (20.0-45.0); MEAN CORPUSCULAR VOLUME 90 FL (80-99); MONOCYTES % (AUTO) 13.3 % (1.0-10.0); NEUTROPHILS % (AUTO) 60.3 % (45.0-75.0); PLATELET COUNT 188 K/UL (150-450); RED BLOOD COUNT 3.44 M/UL (4.70-6.10); RED CELL DISTRIBUTION WIDTH 19.7 % (11.6-14.8); WHITE BLOOD COUNT 7.4 K/UL (4.8-10.8)
[2020-07-17 09:55] LABS: ANION GAP 12 mmol/L (5-15); BLOOD UREA NITROGEN 57 mg/dL (7-18); CALCIUM 9.3 MG/DL (8.5-10.1); CARBON DIOXIDE 25 MMOL/L (21-32); CHLORIDE 97 MMOL/L (98-107); CREATININE 7.8 MG/DL (0.55-1.30); POTASSIUM 4.5 MMOL/L (3.5-5.1); SODIUM 134 MMOL/L (136-145)
--- NOTE | 2020-07-17 13:12 | Infectious Diseases Prog Note ---
Assessment/Plan Assessment/Plan IMPRESSION: Sepsis with Staph aureus and E.coli Atrial fibrillation with RVR Necrotic skin lesion in the right temporal area, cleaned skin cancer,infected Rejected kidney transplant, Renal failure, Acidosis, Severe anemia, Hypertension. MRSA carrier RECOMMENDATIONS: Continue cefepime X 1 day Subjective ROS Limited/Unobtainable: No Constitutional: Reports: no symptoms, other - tranferred to ICU Respiratory: Reports: no symptoms Cardiovascular: Reports: other - Developed chest pain PAF after HD yesterday Gastrointestinal/Abdominal: Reports: no symptoms Genitourinary: Reports: no symptoms Allergies: Coded Allergies: ASPIRIN (Verified Allergy, Unknown, 07/04/20) Objective Last 24 Hour Vital Signs Date Time Temp Pulse Resp B/P (MAP) Pulse Ox O2 Delivery O2 Flow Rate FiO2 07/17/20 12:00 Room Air 07/17/20 12:00 98.4 97 20 159/67 (97) 100 07/17/20 11:00 76 17 132/61 (84) 100 07/17/20 10:00 81 18 125/57 (79) 100 07/17/20 09:00 78 18 117/58 (77) 100 07/17/20 08:46 75 07/17/20 08:00 81 07/17/20 08:00 Room Air 07/17/20 08:00 98.3 07/17/20 08:00 77 20 118/59 (78) 100 07/17/20 07:35 100 Nasal Cannula 2.0 28 07/17/20 07:00 64 20 120/60 (80) 100 07/17/20 06:00 99 20 100/53 (69) 100 07/17/20 06:00 58 98/56 07/17/20 05:20 112 21 99 07/17/20 05:00 73 22 99/58 (72) 100 07/17/20 04:46 100/53 07/17/20 04:06 105/59 07/17/20 04:00 98.0 84 21 98/53 (68) 100 07/17/20 03:00 78 22 114/58 (76) 100 07/17/20 02:00 81 22 106/57 (73) 100 07/17/20 01:00 87 22 108/49 (68) 100 07/17/20 00:45 95 18 105/62 (76) 100 07/17/20 00:30 101 17 107/59 (75) 100 07/17/20 00:00 98.2 101 19 102/54 (70) 100 07/17/20 00:00 Room Air 07/16/20 23:47 105 21 102/61 (75) 100 07/16/20 23:41 96 17 80/53 (62) 100 07/16/20 23:17 98 20 101/66 (78) 98 07/16/20 23:15 98.6 20 98 07/16/20 22:50 97.8 116 22 79/49 (59) 100 07/16/20 22:44 99/38 07/16/20 22:38 111 104/66 07/16/20 22:36 104/66 07/16/20 22:28 100 Nasal Cannula 2.0 28 07/16/20 22:24 109/75 07/16/20 22:10 97.8 112 21 109/75 (86) 99 07/16/20 21:00 Room Air 07/16/20 20:00 98.0 93 19 148/87 (107) 98 07/16/20 16:00 98.1 83 19 131/72 (91) 98 07/16/20 13:45 80 127/68 Height (Feet): 5 Height (Inches): 7.00 Weight (Pounds): 132 General Appearance: no acute distress HEENT: mucous membranes moist Respiratory/Chest: lungs clear Cardiovascular: normal rate Abdomen: soft, non tender Extremities: no edema Skin: other - R temporal ulcer Neurologic/Psychiatric: alert, oriented x 3, responsive Laboratory Tests Test 07/17/20 08:35 White Blood Count 7.4 K/UL (4.8-10.8) Red Blood Count 3.44 M/UL (4.70-6.10) L Hemoglobin 9.7 G/DL (14.2-18.0) L Hematocrit 31.1 % (42.0-52.0) L Mean Corpuscular Volume 90 FL (80-99) Mean Corpuscular Hemoglobin 28.1 PG (27.0-31.0) Mean Corpuscular Hemoglobin Concent 31.1 G/DL (32.0-36.0) L Red Cell Distribution Width 19.7 % (11.6-14.8) H Platelet Count 188 K/UL (150-450) Mean Platelet Volume 6.2 FL (6.5-10.1) L Neutrophils (%) (Auto) 60.3 % (45.0-75.0) Lymphocytes (%) (Auto) 24.6 % (20.0-45.0) Monocytes (%) (Auto) 13.3 % (1.0-10.0) H Eosinophils (%) (Auto) 0.5 % (0.0-3.0) Basophils (%) (Auto) 1.3 % (0.0-2.0) Sodium Level 134 MMOL/L (136-145) L Potassium Level 4.5 MMOL/L (3.5-5.1) Chloride Level 97 MMOL/L (98-107) L Carbon Dioxide Level 25 MMOL/L (21-32) Anion Gap 12 mmol/L (5-15) Blood Urea Nitrogen 57 mg/dL (7-18) H Creatinine 7.8 MG/DL (0.55-1.30) H Estimat Glomerular Filtration Rate 7.2 mL/min (>60) Glucose Level 96 MG/DL (74-106) Calcium Level 9.3 MG/DL (8.5-10.1) Troponin I 0.248 ng/mL (0.000-0.056) Current Medications Medications (Trade) Dose Ordered Sig/Marco A Route PRN Reason Start Time Stop Time Status Last Admin Dose Admin Acetaminophen (Tylenol) 650 mg Q4H PRN ORAL Mild Pain (Pain Scale 1-3) 07/08/20 08:00 08/03/20 15:59 07/17/20 00:21 Apixaban (Eliquis) 2.5 mg BID ORAL 07/08/20 09:00 10/04/20 17:59 07/17/20 08:46 Calcitriol (Rocatrol) 0.25 mcg DAILY ORAL 07/08/20 09:00 10/05/20 13:59 07/17/20 08:46 Cefepime HCl 500 mg/Dextrose 55 ml @ 110 mls/hr Q24H IVPB 07/08/20 21:00 07/22/20 20:59 07/16/20 23:31 Chlorpromazine (Thorazine) 25 mg TIDPRN PRN ORAL hiccup 07/08/20 15:15 08/07/20 15:14 07/08/20 17:01 Dextrose (Dextrose 50%) 25 ml Q30M PRN IV Hypoglycemia 07/08/20 07:15 10/02/20 18:44 Dextrose (Dextrose 50%) 50 ml Q30M PRN IV Hypoglycemia 07/08/20 07:00 10/02/20 16:59 Digoxin (Lanoxin) 0.125 mg DAILY ORAL 07/08/20 09:00 10/06/20 08:59 07/17/20 08:46 Diltiazem HCl (Cardizem Tab) 60 mg EVERY 8 HOURS ORAL 07/08/20 14:00 08/05/20 13:59 07/16/20 22:38 Epoetin Mode (Epoetin Mode(ESRD on dialysis)) 8,000 unit SUBQ 07/09/20 21:00 10/02/20 20:59 07/16/20 21:30 Nitroglycerin (Ntg) 0.4 mg Q5M PRN SL Prn Chest Pain 07/08/20 07:00 08/04/20 16:59 07/17/20 04:46 Polyethylene Glycol (Miralax) 17 gm DAILYPRN PRN ORAL Constipation 07/08/20 08:30 08/03/20 08:29 Vitamin B Complex/ Vit C/Folic Acid (Nephrovite) 1 tab DAILY ORAL 07/08/20 09:00 08/03/20 19:59 07/17/20 08:46 Darius Hyde MD Jul 17, 2020 13:12
--- NOTE | 2020-07-17 14:14 | Cardiac Electrophysiology PN ---
Assessment/Plan Assessment/Plan 1. Atrial fibrillation, rapid ventricular response with heart rate of 180s. Digoxin level 1.6. On Dig 0.125 daily, Cardizem 60 po tid and Eliquis 2.5 bid Echo EF 65%. Add Amiodarone 400 bid 2. Troponin leak likely due to renal failure and atrial fib with RVR. ECho Nl EF 3. Profound anemia, hemoglobin of 6. S/P blood transfusion. Could be due to renal failure. FU GI 4. Acute on chronic renal failure in a patient with history of kidney transplan t. Back on hemodialysis via Left arm AVF under management of Dr. Alisha Hyde. 5. Thrombocytopenia. 6. History of hypertension.On Cardizem and HD 7. Sepsis with Staph aureus and E.coli on iv Abx per Dr Eulalia ORDAZ RN Subjective Subjective Transferred to ICU as developed atrial fib with RVR and became hypotensive. Converted back to SR this am. Alert in NAD. On iv Ab for Staph Aureus sepsis and E. Coli Bacteremia. HD pending today Objective Last 24 Hour Vital Signs Date Time Temp Pulse Resp B/P (MAP) Pulse Ox O2 Delivery O2 Flow Rate FiO2 07/17/20 13:41 82 95/58 07/17/20 13:00 84 17 97/48 (64) 100 07/17/20 12:00 84 07/17/20 12:00 Room Air 07/17/20 12:00 98.4 97 20 159/67 (97) 100 07/17/20 11:00 76 17 132/61 (84) 100 07/17/20 10:00 81 18 125/57 (79) 100 07/17/20 09:00 78 18 117/58 (77) 100 07/17/20 08:46 75 07/17/20 08:00 81 07/17/20 08:00 Room Air 07/17/20 08:00 98.3 07/17/20 08:00 77 20 118/59 (78) 100 07/17/20 07:35 100 Nasal Cannula 2.0 28 07/17/20 07:00 64 20 120/60 (80) 100 07/17/20 06:00 99 20 100/53 (69) 100 07/17/20 06:00 58 98/56 07/17/20 05:20 112 21 99 07/17/20 05:00 73 22 99/58 (72) 100 07/17/20 04:46 100/53 07/17/20 04:06 105/59 07/17/20 04:00 98.0 84 21 98/53 (68) 100 07/17/20 03:00 78 22 114/58 (76) 100 07/17/20 02:00 81 22 106/57 (73) 100 07/17/20 01:00 87 22 108/49 (68) 100 07/17/20 00:45 95 18 105/62 (76) 100 07/17/20 00:30 101 17 107/59 (75) 100 07/17/20 00:00 98.2 101 19 102/54 (70) 100 07/17/20 00:00 Room Air 07/16/20 23:47 105 21 102/61 (75) 100 07/16/20 23:41 96 17 80/53 (62) 100 07/16/20 23:17 98 20 101/66 (78) 98 07/16/20 23:15 98.6 20 98 07/16/20 22:50 97.8 116 22 79/49 (59) 100 07/16/20 22:44 99/38 07/16/20 22:38 111 104/66 07/16/20 22:36 104/66 07/16/20 22:28 100 Nasal Cannula 2.0 28 07/16/20 22:24 109/75 07/16/20 22:10 97.8 112 21 109/75 (86) 99 07/16/20 21:00 Room Air 07/16/20 20:00 98.0 93 19 148/87 (107) 98 07/16/20 16:00 98.1 83 19 131/72 (91) 98 Intake and Output 07/16/20 07/17/20 18:59 06:59 Intake Total 300 ml 90 ml Output Total 450 ml Balance 300 ml -360 ml Intake Oral 300 ml 90 ml Output Urine Total 450 ml Hemodialysis UF 0 ml # Voids 2 5 # Bowel Movements 2 Laboratory Tests Test 07/17/20 08:35 White Blood Count 7.4 K/UL (4.8-10.8) Red Blood Count 3.44 M/UL (4.70-6.10) L Hemoglobin 9.7 G/DL (14.2-18.0) L Hematocrit 31.1 % (42.0-52.0) L Mean Corpuscular Volume 90 FL (80-99) Mean Corpuscular Hemoglobin 28.1 PG (27.0-31.0) Mean Corpuscular Hemoglobin Concent 31.1 G/DL (32.0-36.0) L Red Cell Distribution Width 19.7 % (11.6-14.8) H Platelet Count 188 K/UL (150-450) Mean Platelet Volume 6.2 FL (6.5-10.1) L Neutrophils (%) (Auto) 60.3 % (45.0-75.0) Lymphocytes (%) (Auto) 24.6 % (20.0-45.0) Monocytes (%) (Auto) 13.3 % (1.0-10.0) H Eosinophils (%) (Auto) 0.5 % (0.0-3.0) Basophils (%) (Auto) 1.3 % (0.0-2.0) Sodium Level 134 MMOL/L (136-145) L Potassium Level 4.5 MMOL/L (3.5-5.1) Chloride Level 97 MMOL/L (98-107) L Carbon Dioxide Level 25 MMOL/L (21-32) Anion Gap 12 mmol/L (5-15) Blood Urea Nitrogen 57 mg/dL (7-18) H Creatinine 7.8 MG/DL (0.55-1.30) H Estimat Glomerular Filtration Rate 7.2 mL/min (>60) Glucose Level 96 MG/DL (74-106) Calcium Level 9.3 MG/DL (8.5-10.1) Troponin I 0.248 ng/mL (0.000-0.056) Objective HEAD AND NECK: Shows positive JVD. LUNGS: Decreased breath sounds. CARDIOVASCULAR: Shows irregularly irregular, tachycardic S1 and S2. ABDOMEN: Soft. EXTREMITIES: No pitting edema.Left arm AVF Juaquin Tomlin MD Jul 17, 2020 14:14
--- NOTE | 2020-07-17 14:25 | General Progress Note ---
Assessment/Plan Problem List: (1) ESRD (end stage renal disease) on dialysis ICD Codes: N18.6 - End stage renal disease; Z99.2 - Dependence on renal dialysis SNOMED: 151209267 (2) Metabolic acidosis ICD Codes: E87.2 - Acidosis SNOMED: 04511307 (3) Profound anemia ICD Codes: D64.9 - Anemia, unspecified SNOMED: 332679714 Qualifiers: Qualified Codes: D64.9 - Anemia, unspecified (4) Elevated troponin ICD Codes: R79.89 - Other specified abnormal findings of blood chemistry SNOMED: 492638030, 956939089, 237451036 (5) Status post kidney transplant ICD Codes: Z94.0 - Kidney transplant status SNOMED: 965926489, 64772952, 92497488 Assessment/Plan: abxs HD tomorrow with 4 K follow labs continue Epogen Discussed with Dr iniguez Subjective Allergies: Coded Allergies: ASPIRIN (Verified Allergy, Unknown, 07/04/20) Subjective pt went to Afib with RVR yesterday developed CP Objective Last 24 Hour Vital Signs Date Time Temp Pulse Resp B/P (MAP) Pulse Ox O2 Delivery O2 Flow Rate FiO2 07/17/20 13:41 82 95/58 07/17/20 13:00 84 17 97/48 (64) 100 07/17/20 12:00 84 07/17/20 12:00 Room Air 07/17/20 12:00 98.4 97 20 159/67 (97) 100 07/17/20 11:00 76 17 132/61 (84) 100 07/17/20 10:00 81 18 125/57 (79) 100 07/17/20 09:00 78 18 117/58 (77) 100 07/17/20 08:46 75 07/17/20 08:00 81 07/17/20 08:00 Room Air 07/17/20 08:00 98.3 07/17/20 08:00 77 20 118/59 (78) 100 07/17/20 07:35 100 Nasal Cannula 2.0 28 07/17/20 07:00 64 20 120/60 (80) 100 07/17/20 06:00 99 20 100/53 (69) 100 07/17/20 06:00 58 98/56 07/17/20 05:20 112 21 99 07/17/20 05:00 73 22 99/58 (72) 100 07/17/20 04:46 100/53 07/17/20 04:06 105/59 07/17/20 04:00 98.0 84 21 98/53 (68) 100 07/17/20 03:00 78 22 114/58 (76) 100 07/17/20 02:00 81 22 106/57 (73) 100 07/17/20 01:00 87 22 108/49 (68) 100 07/17/20 00:45 95 18 105/62 (76) 100 07/17/20 00:30 101 17 107/59 (75) 100 07/17/20 00:00 98.2 101 19 102/54 (70) 100 07/17/20 00:00 Room Air 07/16/20 23:47 105 21 102/61 (75) 100 07/16/20 23:41 96 17 80/53 (62) 100 07/16/20 23:17 98 20 101/66 (78) 98 07/16/20 23:15 98.6 20 98 07/16/20 22:50 97.8 116 22 79/49 (59) 100 07/16/20 22:44 99/38 07/16/20 22:38 111 104/66 07/16/20 22:36 104/66 07/16/20 22:28 100 Nasal Cannula 2.0 28 07/16/20 22:24 109/75 07/16/20 22:10 97.8 112 21 109/75 (86) 99 07/16/20 21:00 Room Air 07/16/20 20:00 98.0 93 19 148/87 (107) 98 07/16/20 16:00 98.1 83 19 131/72 (91) 98 Intake and Output 07/16/20 07/17/20 19:00 07:00 Intake Total 300 ml 90 ml Output Total 450 ml Balance 300 ml -360 ml Intake Oral 300 ml 90 ml Output Urine Total 450 ml Hemodialysis UF 0 ml # Voids 2 5 # Bowel Movements 2 Laboratory Tests 07/17/20 08:35: White Blood Count 7.4, Red Blood Count 3.44L, Hemoglobin 9.7L, Hematocrit 31.1L , Mean Corpuscular Volume 90, Mean Corpuscular Hemoglobin 28.1, Mean Corpuscular Hemoglobin Concent 31.1L, Red Cell Distribution Width 19.7H, Platelet Count 188, Mean Platelet Volume 6.2L, Neutrophils (%) (Auto) 60.3, Lymphocytes (%) (Auto) 24.6, Monocytes (%) (Auto) 13.3H, Eosinophils (%) (Auto) 0.5, Basophils (%) (Auto) 1.3, Sodium Level 134L, Potassium Level 4.5, Chloride Level 97L, Carbon Dioxide Level 25, Anion Gap 12, Blood Urea Nitrogen 57H, Creatinine 7.8H, Estimat Glomerular Filtration Rate 7.2, Glucose Level 96, Calcium Level 9.3, Troponin I 0.248H Height (Feet): 5 Height (Inches): 7.00 Weight (Pounds): 132 Cardiovascular: normal rate Respiratory/Chest: lungs clear Edema: no edema noted Generalized Raulito Hyde MD Jul 17, 2020 14:25
[2020-07-17] MEDS ORDERED: chlorproMAZINE 10mg tab ORAL PRN (14:32)
[2020-07-17] MEDS ORDERED: Nitroglycerin Subl 0.4mg tab SL PRN (14:32)
[2020-07-17] MEDS ORDERED: Miralax 17gm pkt ORAL PRN (14:33)
--- NOTE | 2020-07-17 15:23 | Surgery Progress Note ---
Surgery Progress Note Subjective Additional Comments a fib with RVR transferred to [facility] planned for HD wound stable labs reviewed Objective Last 24 Hour Vital Signs Date Time Temp Pulse Resp B/P (MAP) Pulse Ox O2 Delivery O2 Flow Rate FiO2 07/17/20 14:00 86 21 105/55 (72) 100 07/17/20 13:41 82 95/58 07/17/20 13:00 84 17 97/48 (64) 100 07/17/20 12:00 84 07/17/20 12:00 Room Air 07/17/20 12:00 98.4 97 20 159/67 (97) 100 07/17/20 11:00 76 17 132/61 (84) 100 07/17/20 10:00 81 18 125/57 (79) 100 07/17/20 09:00 78 18 117/58 (77) 100 07/17/20 08:46 75 07/17/20 08:00 81 07/17/20 08:00 Room Air 07/17/20 08:00 98.3 07/17/20 08:00 77 20 118/59 (78) 100 07/17/20 07:35 100 Nasal Cannula 2.0 28 07/17/20 07:00 64 20 120/60 (80) 100 07/17/20 06:00 99 20 100/53 (69) 100 07/17/20 06:00 58 98/56 07/17/20 05:20 112 21 99 07/17/20 05:00 73 22 99/58 (72) 100 07/17/20 04:46 100/53 07/17/20 04:06 105/59 07/17/20 04:00 98.0 84 21 98/53 (68) 100 07/17/20 03:00 78 22 114/58 (76) 100 07/17/20 02:00 81 22 106/57 (73) 100 07/17/20 01:00 87 22 108/49 (68) 100 07/17/20 00:45 95 18 105/62 (76) 100 07/17/20 00:30 101 17 107/59 (75) 100 07/17/20 00:00 98.2 101 19 102/54 (70) 100 07/17/20 00:00 Room Air 07/16/20 23:47 105 21 102/61 (75) 100 07/16/20 23:41 96 17 80/53 (62) 100 07/16/20 23:17 98 20 101/66 (78) 98 07/16/20 23:15 98.6 20 98 07/16/20 22:50 97.8 116 22 79/49 (59) 100 07/16/20 22:44 99/38 07/16/20 22:38 111 104/66 07/16/20 22:36 104/66 07/16/20 22:28 100 Nasal Cannula 2.0 28 07/16/20 22:24 109/75 07/16/20 22:10 97.8 112 21 109/75 (86) 99 07/16/20 21:00 Room Air 07/16/20 20:00 98.0 93 19 148/87 (107) 98 07/16/20 16:00 98.1 83 19 131/72 (91) 98 I&O Intake and Output 07/16/20 07/17/20 19:00 07:00 Intake Total 300 ml 90 ml Output Total 450 ml Balance 300 ml -360 ml Intake Oral 300 ml 90 ml Output Urine Total 450 ml Hemodialysis UF 0 ml # Voids 2 5 # Bowel Movements 2 Dressing: saturated Cardiovascular: RSR Respiratory: decreased breath sounds Abdomen: soft, non-tender, present bowel sounds Extremities: no edema, no tenderness, no cyanosis Laboratory Tests Test 07/17/20 08:35 White Blood Count 7.4 K/UL (4.8-10.8) Red Blood Count 3.44 M/UL (4.70-6.10) L Hemoglobin 9.7 G/DL (14.2-18.0) L Hematocrit 31.1 % (42.0-52.0) L Mean Corpuscular Volume 90 FL (80-99) Mean Corpuscular Hemoglobin 28.1 PG (27.0-31.0) Mean Corpuscular Hemoglobin Concent 31.1 G/DL (32.0-36.0) L Red Cell Distribution Width 19.7 % (11.6-14.8) H Platelet Count 188 K/UL (150-450) Mean Platelet Volume 6.2 FL (6.5-10.1) L Neutrophils (%) (Auto) 60.3 % (45.0-75.0) Lymphocytes (%) (Auto) 24.6 % (20.0-45.0) Monocytes (%) (Auto) 13.3 % (1.0-10.0) H Eosinophils (%) (Auto) 0.5 % (0.0-3.0) Basophils (%) (Auto) 1.3 % (0.0-2.0) Sodium Level 134 MMOL/L (136-145) L Potassium Level 4.5 MMOL/L (3.5-5.1) Chloride Level 97 MMOL/L (98-107) L Carbon Dioxide Level 25 MMOL/L (21-32) Anion Gap 12 mmol/L (5-15) Blood Urea Nitrogen 57 mg/dL (7-18) H Creatinine 7.8 MG/DL (0.55-1.30) H Estimat Glomerular Filtration Rate 7.2 mL/min (>60) Glucose Level 96 MG/DL (74-106) Calcium Level 9.3 MG/DL (8.5-10.1) Troponin I 0.248 ng/mL (0.000-0.056) Plan Problems: (1) Elevated troponin (2) Acute renal failure (3) Basal cell carcinoma Assessment & Plan: Right forehead scalp open wound potential basal cell carcinoma ulcerated raised edges significant slough in the center. Infected. Recommend local wound care and infection control. Will considerations for biopsy versus excisional biopsy with flap. Need medical optimization resuscitation first. Continue with current medical care. Discussed with patient and PCP. Will consider plans for local control upon improvement. Thank you fine partition patient's care. Wash wound daily with normal saline. Apply dressings 3 times daily. non excisional debridement at bedside wound much connie cleaner dressing TID gauze cont dressings will monitor as improving looks more like infection that was out of control. wound healing well will cont local care and monitor wound 80% healed improving daily will monitor may not need surgery (4) Metabolic acidosis (5) Profound anemia (6) Chest pain (7) ESRD (end stage renal disease) on dialysis (8) Mathew Brown Jul 17, 2020 15:23
[2020-07-17] MEDS: Amiodarone 200mg tab ORAL SCH (20:02)
[2020-07-17] MEDS ORDERED: Amiodarone 200mg tab ORAL SCH (21:00)
[2020-07-17] MEDS ORDERED: Cefepime HCl 500 MG in D5W 55 ML IVPB SCH (21:00)
[2020-07-18 04:00] VITALS: BP 104/62
[2020-07-18] MEDS: dilTIAZem HCl 60mg tab ORAL SCH ×3 (05:21→21:43)
[2020-07-18 08:00] VITALS: BP 131/62
[2020-07-18] MEDS: Eliquis 2.5mg tablet ORAL SCH ×2 (08:57→17:00)
[2020-07-18] MEDS: Amiodarone 200mg tab ORAL SCH ×2 (08:58→21:44)
[2020-07-18] MEDS ORDERED: Calcitriol 0.25mcg Cap ORAL SCH (09:00)
[2020-07-18] MEDS ORDERED: Nephrovite tab (Rena-Vite) ORAL SCH (09:00)
[2020-07-18] MEDS ORDERED: Digoxin 0.125mg tab ORAL SCH (09:00)
[2020-07-18] MEDS ORDERED: Tubing IV Secondary IV ONE (09:51)
[2020-07-18] MEDS ORDERED: NS 275ml ONE (09:51)
[2020-07-18 12:00] VITALS: BP 117/61
--- NOTE | 2020-07-18 12:07 | Cardiac Electrophysiology PN ---
Assessment/Plan Assessment/Plan 1. Atrial fibrillation, rapid ventricular response with heart rate of 180s. On Dig 0.125 daily, Cardizem 60 po tid, Amiodarone 400 bid and Eliquis 2.5 bid. EF 65%. 2. Troponin leak likely due to renal failure and atrial fib with RVR. ECho Nl EF 3. Profound anemia, hemoglobin of 6. S/P blood transfusion. Could be due to renal failure. FU GI 4. Acute on chronic renal failure in a patient with history of kidney transplan t. Back on hemodialysis via Left arm AVF under management of Dr. Alisha Hyde. 5. Thrombocytopenia. 6. History of hypertension.On Cardizem and HD 7. Sepsis with Staph aureus and E.coli on iv Abx per Dr Eulalia ORDAZ RN Subjective Subjective Transferred to SDU as converted back to SR Alert in NAD. On iv Ab for Staph Aureus sepsis and E. Coli Bacteremia. Objective Last 24 Hour Vital Signs Date Time Temp Pulse Resp B/P (MAP) Pulse Ox O2 Delivery O2 Flow Rate FiO2 07/18/20 08:58 69 07/18/20 08:00 97.9 69 21 131/62 (85) 100 07/18/20 08:00 72 07/18/20 05:21 72 104/62 07/18/20 04:00 97.5 72 18 104/62 (76) 100 07/18/20 04:00 Room Air 07/18/20 03:52 81 07/18/20 00:00 Room Air 07/17/20 23:55 98.0 84 18 121/69 (86) 100 07/17/20 23:30 83 07/17/20 22:12 87 118/65 07/17/20 20:00 Room Air 07/17/20 20:00 98 Nasal Cannula 2.0 28 07/17/20 19:59 97.9 87 16 108/55 (72) 100 07/17/20 19:38 87 07/17/20 16:00 Room Air 07/17/20 16:00 97.7 83 16 107/63 (78) 100 07/17/20 15:32 79 07/17/20 14:00 86 21 105/55 (72) 100 07/17/20 13:41 82 95/58 07/17/20 13:00 84 17 97/48 (64) 100 Intake and Output 07/17/20 07/18/20 19:00 07:00 Intake Total 30 ml 110 ml Balance 30 ml 110 ml Intake Oral 30 ml IV Total 110 ml # Voids 6 2 # Bowel Movements 7 Objective HEAD AND NECK: Shows positive JVD. LUNGS: Decreased breath sounds. CARDIOVASCULAR: Shows irregularly irregular, tachycardic S1 and S2. ABDOMEN: Soft. EXTREMITIES: No pitting edema.Left arm AVF Juaquin Tomlin MD Jul 18, 2020 12:07
--- NOTE | 2020-07-18 12:25 | Infectious Diseases Prog Note ---
Assessment/Plan Assessment/Plan IMPRESSION: Sepsis with Staph aureus and E.coli treated Atrial fibrillation with RVR Necrotic skin lesion in the right temporal area, cleaned skin cancer,infected Rejected kidney transplant, Renal failure, Acidosis, Severe anemia, Hypertension. MRSA carrier RECOMMENDATIONS: Discontinue cefepime Subjective ROS Limited/Unobtainable: No Constitutional: Reports: no symptoms Respiratory: Reports: no symptoms Cardiovascular: Reports: no symptoms Gastrointestinal/Abdominal: Reports: no symptoms Genitourinary: Reports: no symptoms Allergies: Coded Allergies: ASPIRIN (Verified Allergy, Unknown, 07/04/20) Objective Last 24 Hour Vital Signs Date Time Temp Pulse Resp B/P (MAP) Pulse Ox O2 Delivery O2 Flow Rate FiO2 07/18/20 08:58 69 07/18/20 08:00 97.9 69 21 131/62 (85) 100 07/18/20 08:00 72 07/18/20 05:21 72 104/62 07/18/20 04:00 97.5 72 18 104/62 (76) 100 07/18/20 04:00 Room Air 07/18/20 03:52 81 07/18/20 00:00 Room Air 07/17/20 23:55 98.0 84 18 121/69 (86) 100 07/17/20 23:30 83 07/17/20 22:12 87 118/65 07/17/20 20:00 Room Air 07/17/20 20:00 98 Nasal Cannula 2.0 28 07/17/20 19:59 97.9 87 16 108/55 (72) 100 07/17/20 19:38 87 07/17/20 16:00 Room Air 07/17/20 16:00 97.7 83 16 107/63 (78) 100 07/17/20 15:32 79 07/17/20 14:00 86 21 105/55 (72) 100 07/17/20 13:41 82 95/58 07/17/20 13:00 84 17 97/48 (64) 100 Height (Feet): 5 Height (Inches): 7.00 Weight (Pounds): 132 General Appearance: no acute distress Respiratory/Chest: lungs clear Cardiovascular: normal rate Abdomen: soft, non tender Extremities: no edema Skin: other - R temporal ulcer Neurologic/Psychiatric: alert, oriented x 3, responsive Current Medications Medications (Trade) Dose Ordered Sig/Marco A Route PRN Reason Start Time Stop Time Status Last Admin Dose Admin Acetaminophen (Tylenol) 650 mg Q4H PRN ORAL Mild Pain (Pain Scale 1-3) 07/17/20 14:31 08/16/20 14:30 Amiodarone HCl (Cordarone) 400 mg EVERY 12 HOURS ORAL 07/17/20 21:00 10/15/20 20:59 07/18/20 08:58 Apixaban (Eliquis) 2.5 mg BID ORAL 07/17/20 18:00 10/04/20 17:59 07/18/20 08:57 Calcitriol (Rocatrol) 0.25 mcg DAILY ORAL 07/18/20 09:00 10/05/20 13:59 07/18/20 08:58 Cefepime HCl 500 mg/Dextrose 55 ml @ 110 mls/hr Q24H IVPB 07/17/20 21:00 07/22/20 20:59 07/17/20 20:00 Chlorpromazine (Thorazine) 25 mg TIDPRN PRN ORAL hiccup 07/17/20 14:32 08/16/20 14:31 Dextrose (Dextrose 50%) 25 ml Q30M PRN IV Hypoglycemia 07/17/20 14:45 10/02/20 18:44 Dextrose (Dextrose 50%) 50 ml Q30M PRN IV Hypoglycemia 07/17/20 14:30 10/02/20 16:59 Digoxin (Lanoxin) 0.125 mg DAILY ORAL 07/18/20 09:00 10/06/20 08:59 07/18/20 08:58 Diltiazem HCl (Cardizem Tab) 60 mg EVERY 8 HOURS ORAL 07/17/20 22:00 08/05/20 13:59 07/18/20 05:21 Epoetin Mode (Epoetin Mode(ESRD on dialysis)) 8,000 unit THU-THU-THU SUBQ 07/18/20 21:00 10/02/20 20:59 Heparin Sodium (Porcine) (Heparin Sod 1000 units/ml 10ml) 500 unit ONCE PRN IV FOR HD USE ONLY 07/18/20 08:45 07/19/20 23:59 Nitroglycerin (Ntg) 0.4 mg Q5M PRN SL Prn Chest Pain 07/17/20 14:32 08/16/20 14:31 Polyethylene Glycol (Miralax) 17 gm DAILYPRN PRN ORAL Constipation 07/17/20 14:33 08/16/20 14:32 Sodium Chloride 1,000 ml @ 500 mls/hr Q2H PRN IVLG sbp<90 during hd 07/18/20 08:41 07/20/20 23:59 Vitamin B Complex/ Vit C/Folic Acid (Nephrovite) 1 tab DAILY ORAL 07/18/20 09:00 08/03/20 19:59 07/18/20 08:58 Darius Hyde MD Jul 18, 2020 12:25
--- NOTE | 2020-07-18 14:19 | General Progress Note ---
Assessment/Plan Problem List: (1) ESRD (end stage renal disease) on dialysis ICD Codes: N18.6 - End stage renal disease; Z99.2 - Dependence on renal dialysis SNOMED: 000870571 (2) Metabolic acidosis ICD Codes: E87.2 - Acidosis SNOMED: 94713194 (3) Profound anemia ICD Codes: D64.9 - Anemia, unspecified SNOMED: 555172880 Qualifiers: Qualified Codes: D64.9 - Anemia, unspecified (4) Elevated troponin ICD Codes: R79.89 - Other specified abnormal findings of blood chemistry SNOMED: 348043261, 476916679, 443634651 (5) Status post kidney transplant ICD Codes: Z94.0 - Kidney transplant status SNOMED: 551595474, 87599852, 58848607 Assessment/Plan: abxs HD today with 4 K follow labs continue Epogen Discussed with RN Subjective Allergies: Coded Allergies: ASPIRIN (Verified Allergy, Unknown, 07/04/20) Subjective feels ok Objective Last 24 Hour Vital Signs Date Time Temp Pulse Resp B/P (MAP) Pulse Ox O2 Delivery O2 Flow Rate FiO2 07/18/20 13:13 64 117/63 07/18/20 08:58 69 07/18/20 08:00 97.9 69 21 131/62 (85) 100 07/18/20 08:00 72 07/18/20 05:21 72 104/62 07/18/20 04:00 97.5 72 18 104/62 (76) 100 07/18/20 04:00 Room Air 07/18/20 03:52 81 07/18/20 00:00 Room Air 07/17/20 23:55 98.0 84 18 121/69 (86) 100 07/17/20 23:30 83 07/17/20 22:12 87 118/65 07/17/20 20:00 Room Air 07/17/20 20:00 98 Nasal Cannula 2.0 28 07/17/20 19:59 97.9 87 16 108/55 (72) 100 07/17/20 19:38 87 07/17/20 16:00 Room Air 07/17/20 16:00 97.7 83 16 107/63 (78) 100 07/17/20 15:32 79 Intake and Output 9/1/20 9/2/20 19:00 07:00 Intake Total 30 ml 110 ml Balance 30 ml 110 ml Intake Oral 30 ml IV Total 110 ml # Voids 6 2 # Bowel Movements 7 Height (Feet): 5 Height (Inches): 7.00 Weight (Pounds): 132 Cardiovascular: normal rate Respiratory/Chest: lungs clear Edema: no edema noted Generalized Raulito Hyde MD Jul 18, 2020 14:19
[2020-07-18 16:00] VITALS: BP 116/62
[2020-07-18] MEDS: Heparin Sod 1000 units/ml 10ml IV PRN ×2 (17:06→17:07)
--- NOTE | 2020-07-18 18:16 | Surgery Progress Note ---
Surgery Progress Note Subjective Symptoms: improved, tolerating diet, voiding well Objective Last 24 Hour Vital Signs Date Time Temp Pulse Resp B/P (MAP) Pulse Ox O2 Delivery O2 Flow Rate FiO2 07/18/20 16:00 60 07/18/20 16:00 97.7 57 21 116/62 (80) 100 07/18/20 13:13 64 117/63 07/18/20 12:00 96.6 64 21 117/61 (79) 100 07/18/20 12:00 72 07/18/20 08:58 69 07/18/20 08:00 97.9 69 21 131/62 (85) 100 07/18/20 08:00 72 07/18/20 05:21 72 104/62 07/18/20 04:00 97.5 72 18 104/62 (76) 100 07/18/20 04:00 Room Air 07/18/20 03:52 81 07/18/20 00:00 Room Air 07/17/20 23:55 98.0 84 18 121/69 (86) 100 07/17/20 23:30 83 07/17/20 22:12 87 118/65 07/17/20 20:00 Room Air 07/17/20 20:00 98 Nasal Cannula 2.0 28 07/17/20 19:59 97.9 87 16 108/55 (72) 100 07/17/20 19:38 87 I&O Intake and Output 07/17/20 07/18/20 19:00 07:00 Intake Total 30 ml 110 ml Balance 30 ml 110 ml Intake Oral 30 ml IV Total 110 ml # Voids 6 2 # Bowel Movements 7 Dressing: saturated Wound: clean Cardiovascular: RSR Respiratory: clear Abdomen: soft, non-tender Extremities: no edema, no tenderness, no cyanosis Plan Problems: (1) Elevated troponin (2) Acute renal failure (3) Basal cell carcinoma Assessment & Plan: Right forehead scalp open wound potential basal cell carcinoma ulcerated raised edges significant slough in the center. Infected. Recommend local wound care and infection control. Will considerations for biopsy versus excisional biopsy with flap. Need medical optimization resuscitation first. Continue with current medical care. Discussed with patient and PCP. Will consider plans for local control upon improvement. Thank you fine partition patient's care. Wash wound daily with normal saline. Apply dressings 3 times daily. non excisional debridement at bedside wound much conduit cleaner dressing TID gauze cont dressings will monitor as improving looks more like infection that was out of control. wound healing well will cont local care and monitor wound 80% healed improving daily will monitor may not need surgery (4) Metabolic acidosis (5) Profound anemia (6) Chest pain (7) ESRD (end stage renal disease) on dialysis (8) Mathew Brown Jul 18, 2020 18:16
[2020-07-18 20:00] VITALS: BP 102/60
[2020-07-18] MEDS ORDERED: Epoetin Alfa-EPBX(ESRD on dialysis)4000 units/ml vial SUBQ SCH (21:00)
[2020-07-19] VITALS: BP 118/60
[2020-07-19 04:00] VITALS: BP 107/61
[2020-07-19] MEDS: dilTIAZem HCl 60mg tab ORAL SCH ×3 (05:20→22:00)
[2020-07-19] MEDS ORDERED: Miralax 17gm pkt ORAL PRN (07:30)
[2020-07-19] MEDS ORDERED: Nitroglycerin Subl 0.4mg tab SL PRN (07:30)
[2020-07-19 08:00] VITALS: BP 124/57
[2020-07-19] MEDS ORDERED: Eliquis 2.5mg tablet ORAL SCH (09:00)
[2020-07-19] MEDS ORDERED: Digoxin 0.125mg tab ORAL SCH (09:00)
--- NOTE | 2020-07-19 09:37 | Surgery Progress Note ---
Surgery Progress Note Subjective Symptoms: improved, pain absent, tolerating diet, passing flatus, BM Objective Last 24 Hour Vital Signs Date Time Temp Pulse Resp B/P (MAP) Pulse Ox O2 Delivery O2 Flow Rate FiO2 07/19/20 05:20 62 113/63 07/19/20 04:00 97.7 66 18 107/61 (76) 97 07/19/20 04:00 67 07/19/20 00:00 64 07/19/20 00:00 98.2 67 18 118/60 (79) 97 07/18/20 21:43 70 121/66 07/18/20 21:00 Room Air 07/18/20 20:00 97.3 76 16 102/60 (74) 100 07/18/20 20:00 77 07/18/20 16:00 60 07/18/20 16:00 97.7 57 21 116/62 (80) 100 07/18/20 13:13 64 117/63 07/18/20 12:00 96.6 64 21 117/61 (79) 100 07/18/20 12:00 72 I&O Intake and Output 07/18/20 07/19/20 18:59 06:59 Intake Total 300 ml 400 ml Output Total 500 ml Balance -200 ml 400 ml Intake Oral 300 ml 400 ml Hemodialysis UF 500 ml # Voids 1 # Bowel Movements 2 Dressing: dry Wound: clean Cardiovascular: RSR Respiratory: clear Abdomen: soft, non-tender, present bowel sounds Extremities: no edema, no tenderness, no cyanosis Laboratory Tests Test 07/19/20 03:30 Digoxin Level 2.2 NG/ML (0.5-2.0) H Plan Problems: (1) Elevated troponin (2) Acute renal failure (3) Basal cell carcinoma Assessment & Plan: Right forehead scalp open wound potential basal cell carcinoma ulcerated raised edges significant slough in the center. Infected. Recommend local wound care and infection control. Will considerations for biopsy versus excisional biopsy with flap. Need medical optimization resuscitation first. Continue with current medical care. Discussed with patient and PCP. Will consider plans for local control upon improvement. Thank you fine partition patient's care. Wash wound daily with normal saline. Apply dressings 3 times daily. non excisional debridement at bedside wound much gut cleaner dressing TID gauze cont dressings will monitor as improving looks more like infection that was out of control. wound healing well will cont local care and monitor wound 80% healed improving daily will monitor may not need surgery wound is almost completely healed. no signs of infection at this time no signs of skin tumor cont with local care. will monitor thank you (4) Metabolic acidosis (5) Profound anemia (6) Chest pain (7) ESRD (end stage renal disease) on dialysis (8) Mathew Brown Jul 19, 2020 09:37
[2020-07-19] MEDS: Amiodarone 200mg tab ORAL SCH ×2 (10:25→22:00)
[2020-07-19] MEDS: Nephrovite tab (Rena-Vite) ORAL SCH (10:25)
[2020-07-19] MEDS: Calcitriol 0.25mcg Cap ORAL SCH (10:25)
--- NOTE | 2020-07-19 10:26 | Cardiac Electrophysiology PN ---
Assessment/Plan Assessment/Plan 1. Atrial fibrillation and RVR with heart rate of 180s. On Dig 0.125 daily, Cardizem 60 po tid, Amiodarone 400 bid. Hold Eliquis as stool OB is positive now. EF 65%. Dig Level 2.2.Change Dig to 0.125 MWF 2. Troponin leak likely due to renal failure and atrial fib with RVR. ECho Nl EF 3. Profound anemia, hemoglobin of 6. S/P blood transfusion. Stool OB is now positive Could be due to renal failure. FU GI and hematology 4. Acute on chronic renal failure in a patient with history of kidney transplan t. Back on hemodialysis via Left arm AVF under management of Dr. Alisha Hyde. 5. Thrombocytopenia. 6. History of hypertension.On Cardizem and HD 7. Sepsis with Staph aureus and E.coli on iv Abx per Dr Eulalia ORDAZ RN Subjective Subjective On tele in SR. Alert in NAD. On iv Ab for Staph Aureus sepsis and E. Coli Bacteremia. No CP Dig level today is 2.2 Objective Last 24 Hour Vital Signs Date Time Temp Pulse Resp B/P (MAP) Pulse Ox O2 Delivery O2 Flow Rate FiO2 07/19/20 08:00 99.7 63 17 124/57 (79) 100 07/19/20 05:20 62 113/63 07/19/20 04:00 97.7 66 18 107/61 (76) 97 07/19/20 04:00 67 07/19/20 00:00 64 07/19/20 00:00 98.2 67 18 118/60 (79) 97 07/18/20 21:43 70 121/66 07/18/20 21:00 Room Air 07/18/20 20:00 97.3 76 16 102/60 (74) 100 07/18/20 20:00 77 07/18/20 16:00 60 07/18/20 16:00 97.7 57 21 116/62 (80) 100 07/18/20 13:13 64 117/63 07/18/20 12:00 96.6 64 21 117/61 (79) 100 07/18/20 12:00 72 Intake and Output 07/18/20 07/19/20 19:00 07:00 Intake Total 300 ml 400 ml Output Total 500 ml Balance -200 ml 400 ml Intake Oral 300 ml 400 ml Hemodialysis UF 500 ml # Voids 1 # Bowel Movements 2 Laboratory Tests Test 07/19/20 03:30 Digoxin Level 2.2 NG/ML (0.5-2.0) H Objective HEAD AND NECK: Positive JVD. LUNGS: Decreased breath sounds. CARDIOVASCULAR: Shows irregularly irregular, tachycardic S1 and S2. ABDOMEN: Soft. EXTREMITIES: No pitting edema.Left arm AVF Juaquin Tomlin MD Jul 19, 2020 10:26
--- NOTE | 2020-07-19 10:58 | Infectious Diseases Prog Note ---
Assessment/Plan Assessment/Plan IMPRESSION: Sepsis with Staph aureus and E.coli treated Atrial fibrillation with RVR Necrotic skin lesion in the right temporal area, cleaned skin cancer,infected Rejected kidney transplant, Renal failure, Acidosis, Severe anemia, Hypertension. MRSA carrier RECOMMENDATIONS: Observe off antibiotic Subjective ROS Limited/Unobtainable: Yes Allergies: Coded Allergies: ASPIRIN (Verified Allergy, Unknown, 07/04/20) Objective Last 24 Hour Vital Signs Date Time Temp Pulse Resp B/P (MAP) Pulse Ox O2 Delivery O2 Flow Rate FiO2 07/19/20 08:00 99.7 63 17 124/57 (79) 100 07/19/20 05:20 62 113/63 07/19/20 04:00 97.7 66 18 107/61 (76) 97 07/19/20 04:00 67 07/19/20 00:00 64 07/19/20 00:00 98.2 67 18 118/60 (79) 97 07/18/20 21:43 70 121/66 07/18/20 21:00 Room Air 07/18/20 20:00 97.3 76 16 102/60 (74) 100 07/18/20 20:00 77 07/18/20 16:00 60 07/18/20 16:00 97.7 57 21 116/62 (80) 100 07/18/20 13:13 64 117/63 07/18/20 12:00 96.6 64 21 117/61 (79) 100 07/18/20 12:00 72 Height (Feet): 5 Height (Inches): 7.00 Weight (Pounds): 132 General Appearance: no acute distress HEENT: mucous membranes moist Respiratory/Chest: lungs clear Cardiovascular: normal rate Abdomen: soft, non tender Extremities: no edema Neurologic/Psychiatric: other - sleeping Laboratory Tests Test 07/19/20 03:30 Digoxin Level 2.2 NG/ML (0.5-2.0) H Current Medications Medications (Trade) Dose Ordered Sig/Marco A Route PRN Reason Start Time Stop Time Status Last Admin Dose Admin Acetaminophen (Tylenol) 650 mg Q4H PRN ORAL Mild Pain (Pain Scale 1-3) 07/19/20 07:30 08/16/20 07:29 Amiodarone HCl (Cordarone) 400 mg EVERY 12 HOURS ORAL 07/19/20 09:00 10/15/20 20:59 07/19/20 10:25 Calcitriol (Rocatrol) 0.25 mcg DAILY ORAL 07/19/20 09:00 10/05/20 13:59 07/19/20 10:25 Chlorpromazine (Thorazine) 25 mg TIDPRN PRN ORAL hiccup 07/19/20 14:45 08/16/20 14:31 Dextrose (Dextrose 50%) 25 ml Q30M PRN IV Hypoglycemia 07/19/20 07:45 10/02/20 18:44 Dextrose (Dextrose 50%) 50 ml Q30M PRN IV Hypoglycemia 07/19/20 07:30 10/02/20 16:59 Digoxin (Lanoxin) 0.125 mg 3XW ORAL 07/20/20 09:00 10/06/20 08:59 Diltiazem HCl (Cardizem Tab) 60 mg EVERY 8 HOURS ORAL 07/19/20 14:00 08/05/20 13:59 Epoetin Mode (Epoetin Mode(ESRD on dialysis)) 8,000 unit THU-THU-THU SUBQ 07/20/20 21:00 10/02/20 20:59 Nitroglycerin (Ntg) 0.4 mg Q5M PRN SL Prn Chest Pain 07/19/20 07:30 08/16/20 14:31 Polyethylene Glycol (Miralax) 17 gm DAILYPRN PRN ORAL Constipation 07/19/20 07:30 08/16/20 07:29 Vitamin B Complex/ Vit C/Folic Acid (Nephrovite) 1 tab DAILY ORAL 07/19/20 09:00 08/03/20 19:59 07/19/20 10:25 Darius Hyde MD Jul 19, 2020 10:58
[2020-07-19 12:00] VITALS: BP 129/57
--- NOTE | 2020-07-19 12:30 | General Progress Note ---
Assessment/Plan Problem List: (1) ESRD (end stage renal disease) on dialysis ICD Codes: N18.6 - End stage renal disease; Z99.2 - Dependence on renal dialysis SNOMED: 984190844 (2) Metabolic acidosis ICD Codes: E87.2 - Acidosis SNOMED: 83200466 (3) Profound anemia ICD Codes: D64.9 - Anemia, unspecified SNOMED: 309160176 Qualifiers: Qualified Codes: D64.9 - Anemia, unspecified (4) Elevated troponin ICD Codes: R79.89 - Other specified abnormal findings of blood chemistry SNOMED: 476203393, 304078009, 516364296 (5) Status post kidney transplant ICD Codes: Z94.0 - Kidney transplant status SNOMED: 810892739, 47126636, 22123276 Assessment/Plan: abxs HD tomorrow follow labs continue Epogen Discussed with RN Subjective Allergies: Coded Allergies: ASPIRIN (Verified Allergy, Unknown, 07/04/20) Subjective feels ok Objective Last 24 Hour Vital Signs Date Time Temp Pulse Resp B/P (MAP) Pulse Ox O2 Delivery O2 Flow Rate FiO2 07/19/20 12:00 100.9 63 15 129/57 (81) 100 07/19/20 09:00 Room Air 07/19/20 08:00 66 07/19/20 08:00 99.7 63 17 124/57 (79) 100 07/19/20 05:20 62 113/63 07/19/20 04:00 97.7 66 18 107/61 (76) 97 07/19/20 04:00 67 07/19/20 00:00 64 07/19/20 00:00 98.2 67 18 118/60 (79) 97 07/18/20 21:43 70 121/66 07/18/20 21:00 Room Air 07/18/20 20:00 97.3 76 16 102/60 (74) 100 07/18/20 20:00 77 07/18/20 16:00 60 07/18/20 16:00 97.7 57 21 116/62 (80) 100 07/18/20 13:13 64 117/63 Intake and Output 07/18/20 07/19/20 19:00 07:00 Intake Total 300 ml 400 ml Output Total 500 ml Balance -200 ml 400 ml Intake Oral 300 ml 400 ml Hemodialysis UF 500 ml # Voids 1 # Bowel Movements 2 Laboratory Tests 07/19/20 03:30: Digoxin Level 2.2H Height (Feet): 5 Height (Inches): 7.00 Weight (Pounds): 132 Cardiovascular: normal rate Respiratory/Chest: lungs clear Edema: no edema noted Generalized Raulito Hyde MD Jul 19, 2020 12:30
[2020-07-19] MEDS ORDERED: Heparin Sod 1000 units/ml 10ml IV PRN (12:40)
[2020-07-19] MEDS ORDERED: chlorproMAZINE 10mg tab ORAL PRN (14:45)
[2020-07-19 20:00] VITALS: BP 104/56
[2020-07-20] VITALS: BP 111/54
[2020-07-20 04:00] VITALS: BP 110/54
[2020-07-20] MEDS: dilTIAZem HCl 60mg tab ORAL SCH ×3 (06:00→22:00)
[2020-07-20 06:22] LABS: BASOPHILS % (AUTO) 1.6 % (0.0-2.0); EOSINOPHILS % (AUTO) 0.7 % (0.0-3.0); HEMATOCRIT 31.9 % (42.0-52.0); HEMOGLOBIN 9.6 G/DL (14.2-18.0); LYMPHOCYTES % (AUTO) 29.6 % (20.0-45.0); MEAN CORPUSCULAR VOLUME 95 FL (80-99); MONOCYTES % (AUTO) 15.8 % (1.0-10.0); NEUTROPHILS % (AUTO) 52.3 % (45.0-75.0); PLATELET COUNT 160 K/UL (150-450); RED BLOOD COUNT 3.37 M/UL (4.70-6.10); RED CELL DISTRIBUTION WIDTH 16.1 % (11.6-14.8); WHITE BLOOD COUNT 7.3 K/UL (4.8-10.8)
[2020-07-20 06:39] LABS: ANION GAP 15 mmol/L (5-15); BLOOD UREA NITROGEN 54 mg/dL (7-18); CALCIUM 9.1 MG/DL (8.5-10.1); CARBON DIOXIDE 22 MMOL/L (21-32); CHLORIDE 102 MMOL/L (98-107); CREATININE 8.5 MG/DL (0.55-1.30); POTASSIUM 4.1 MMOL/L (3.5-5.1); SODIUM 139 MMOL/L (136-145)
[2020-07-20 08:00] VITALS: BP 94/47
[2020-07-20] MEDS: Nephrovite tab (Rena-Vite) ORAL SCH (08:42)
[2020-07-20] MEDS: Amiodarone 200mg tab ORAL SCH ×2 (08:42→21:41)
[2020-07-20] MEDS: Calcitriol 0.25mcg Cap ORAL SCH (08:42)
[2020-07-20] MEDS ORDERED: Digoxin 0.125mg tab ORAL SCH (09:00)
[2020-07-20 12:00] VITALS: BP 134/61
--- NOTE | 2020-07-20 12:20 | Infectious Diseases Prog Note ---
Assessment/Plan Assessment/Plan IMPRESSION: Sepsis with Staph aureus and E.coli treated Atrial fibrillation with RVR Right temporal ulcer , healing Failure of kidney transplant, Renal failure, Acidosis, Severe anemia, Hypertension. MRSA carrier RECOMMENDATIONS: Observe off antibiotic case was D/W surgeon Skin lesion was most likely infection Surgeon anthony malignancy Subjective ROS Limited/Unobtainable: No Constitutional: Reports: no symptoms Respiratory: Reports: no symptoms Cardiovascular: Reports: no symptoms Gastrointestinal/Abdominal: Reports: no symptoms Genitourinary: Reports: no symptoms Allergies: Coded Allergies: ASPIRIN (Verified Allergy, Unknown, 07/04/20) Objective Last 24 Hour Vital Signs Date Time Temp Pulse Resp B/P (MAP) Pulse Ox O2 Delivery O2 Flow Rate FiO2 07/20/20 09:00 Room Air 07/20/20 09:00 50 07/20/20 08:00 97.7 50 18 94/47 (63) 97 07/20/20 08:00 49 07/20/20 06:00 72 110/54 07/20/20 04:00 60 07/20/20 04:00 97.3 76 19 110/54 (72) 100 07/20/20 00:00 61 07/20/20 00:00 98.1 61 21 111/54 (73) 100 07/19/20 22:00 62 112/64 07/19/20 21:00 Room Air 07/19/20 20:03 98 Nasal Cannula 2.0 28 07/19/20 20:00 62 07/19/20 20:00 99.3 62 19 104/56 (72) 100 07/19/20 14:00 61 117/54 Height (Feet): 5 Height (Inches): 7.00 Weight (Pounds): 132 General Appearance: no acute distress HEENT: mucous membranes moist Respiratory/Chest: lungs clear Cardiovascular: bradycardia Abdomen: soft, non tender Extremities: no edema Skin: other - R temporal ulcer healing Neurologic/Psychiatric: alert, oriented x 3, responsive Laboratory Tests Test 07/20/20 06:06 White Blood Count 7.3 K/UL (4.8-10.8) Red Blood Count 3.37 M/UL (4.70-6.10) L Hemoglobin 9.6 G/DL (14.2-18.0) L Hematocrit 31.9 % (42.0-52.0) L Mean Corpuscular Volume 95 FL (80-99) Mean Corpuscular Hemoglobin 28.6 PG (27.0-31.0) Mean Corpuscular Hemoglobin Concent 30.2 G/DL (32.0-36.0) L Red Cell Distribution Width 16.1 % (11.6-14.8) H Platelet Count 160 K/UL (150-450) Mean Platelet Volume 6.0 FL (6.5-10.1) L Neutrophils (%) (Auto) 52.3 % (45.0-75.0) Lymphocytes (%) (Auto) 29.6 % (20.0-45.0) Monocytes (%) (Auto) 15.8 % (1.0-10.0) H Eosinophils (%) (Auto) 0.7 % (0.0-3.0) Basophils (%) (Auto) 1.6 % (0.0-2.0) Sodium Level 139 MMOL/L (136-145) Potassium Level 4.1 MMOL/L (3.5-5.1) Chloride Level 102 MMOL/L (98-107) Carbon Dioxide Level 22 MMOL/L (21-32) Anion Gap 15 mmol/L (5-15) Blood Urea Nitrogen 54 mg/dL (7-18) H Creatinine 8.5 MG/DL (0.55-1.30) H Estimat Glomerular Filtration Rate 6.5 mL/min (>60) Glucose Level 96 MG/DL (74-106) Calcium Level 9.1 MG/DL (8.5-10.1) Current Medications Medications (Trade) Dose Ordered Sig/Marco A Route PRN Reason Start Time Stop Time Status Last Admin Dose Admin Acetaminophen (Tylenol) 650 mg Q4H PRN ORAL Mild Pain (Pain Scale 1-3) 07/19/20 07:30 08/16/20 07:29 07/19/20 12:29 Amiodarone HCl (Cordarone) 400 mg EVERY 12 HOURS ORAL 07/19/20 09:00 10/15/20 20:59 07/20/20 08:42 Calcitriol (Rocatrol) 0.25 mcg DAILY ORAL 07/19/20 09:00 10/05/20 13:59 07/20/20 08:42 Chlorpromazine (Thorazine) 25 mg TIDPRN PRN ORAL hiccup 07/19/20 14:45 08/16/20 14:31 Dextrose (Dextrose 50%) 25 ml Q30M PRN IV Hypoglycemia 07/19/20 07:45 10/02/20 18:44 Dextrose (Dextrose 50%) 50 ml Q30M PRN IV Hypoglycemia 07/19/20 07:30 10/02/20 16:59 Digoxin (Lanoxin) 0.125 mg 3XW ORAL 07/20/20 09:00 10/06/20 08:59 Diltiazem HCl (Cardizem Tab) 60 mg EVERY 8 HOURS ORAL 07/19/20 14:00 08/05/20 13:59 07/20/20 06:00 Epoetin Mode (Epoetin Mode(ESRD on dialysis)) 8,000 unit THU-THU-THU SUBQ 07/20/20 21:00 10/02/20 20:59 Heparin Sodium (Porcine) (Heparin Sod 1000 units/ml 10ml) 500 unit ONCE PRN IV FOR HD USE ONLY 07/19/20 12:40 07/21/20 23:59 Nitroglycerin (Ntg) 0.4 mg Q5M PRN SL Prn Chest Pain 07/19/20 07:30 08/16/20 14:31 Polyethylene Glycol (Miralax) 17 gm DAILYPRN PRN ORAL Constipation 07/19/20 07:30 08/16/20 07:29 Sodium Chloride 1,000 ml @ 500 mls/hr Q2H PRN IVLG sbp<90 during hd 07/19/20 12:40 07/21/20 23:59 Vitamin B Complex/ Vit C/Folic Acid (Nephrovite) 1 tab DAILY ORAL 07/19/20 09:00 08/03/20 19:59 07/20/20 08:42 Darius Hyde MD Jul 20, 2020 12:19
--- NOTE | 2020-07-20 12:31 | Surgery Progress Note ---
Surgery Progress Note Subjective Symptoms: improved, pain absent, tolerating diet, passing flatus, BM Objective Last 24 Hour Vital Signs Date Time Temp Pulse Resp B/P (MAP) Pulse Ox O2 Delivery O2 Flow Rate FiO2 07/20/20 09:00 Room Air 07/20/20 09:00 50 07/20/20 08:00 97.7 50 18 94/47 (63) 97 07/20/20 08:00 49 07/20/20 06:00 72 110/54 07/20/20 04:00 60 07/20/20 04:00 97.3 76 19 110/54 (72) 100 07/20/20 00:00 61 07/20/20 00:00 98.1 61 21 111/54 (73) 100 07/19/20 22:00 62 112/64 07/19/20 21:00 Room Air 07/19/20 20:03 98 Nasal Cannula 2.0 28 07/19/20 20:00 62 07/19/20 20:00 99.3 62 19 104/56 (72) 100 07/19/20 14:00 61 117/54 I&O Intake and Output 07/19/20 07/20/20 19:00 07:00 # Voids 1 Dressing: dry Wound: clean Cardiovascular: RSR Respiratory: clear Abdomen: soft, non-tender, present bowel sounds Extremities: no edema, no tenderness, no cyanosis Laboratory Tests Test 07/20/20 06:06 White Blood Count 7.3 K/UL (4.8-10.8) Red Blood Count 3.37 M/UL (4.70-6.10) L Hemoglobin 9.6 G/DL (14.2-18.0) L Hematocrit 31.9 % (42.0-52.0) L Mean Corpuscular Volume 95 FL (80-99) Mean Corpuscular Hemoglobin 28.6 PG (27.0-31.0) Mean Corpuscular Hemoglobin Concent 30.2 G/DL (32.0-36.0) L Red Cell Distribution Width 16.1 % (11.6-14.8) H Platelet Count 160 K/UL (150-450) Mean Platelet Volume 6.0 FL (6.5-10.1) L Neutrophils (%) (Auto) 52.3 % (45.0-75.0) Lymphocytes (%) (Auto) 29.6 % (20.0-45.0) Monocytes (%) (Auto) 15.8 % (1.0-10.0) H Eosinophils (%) (Auto) 0.7 % (0.0-3.0) Basophils (%) (Auto) 1.6 % (0.0-2.0) Sodium Level 139 MMOL/L (136-145) Potassium Level 4.1 MMOL/L (3.5-5.1) Chloride Level 102 MMOL/L (98-107) Carbon Dioxide Level 22 MMOL/L (21-32) Anion Gap 15 mmol/L (5-15) Blood Urea Nitrogen 54 mg/dL (7-18) H Creatinine 8.5 MG/DL (0.55-1.30) H Estimat Glomerular Filtration Rate 6.5 mL/min (>60) Glucose Level 96 MG/DL (74-106) Calcium Level 9.1 MG/DL (8.5-10.1) Plan Problems: (1) Elevated troponin (2) Acute renal failure (3) Basal cell carcinoma Assessment & Plan: Right forehead scalp open wound potential basal cell carcinoma ulcerated raised edges significant slough in the center. Infected. Recommend local wound care and infection control. Will considerations for biopsy versus excisional biopsy with flap. Need medical optimization resuscitation first. Continue with current medical care. Discussed with patient and PCP. Will consider plans for local control upon improvement. Thank you fine partition patient's care. Wash wound daily with normal saline. Apply dressings 3 times daily. non excisional debridement at bedside wound much ceiling cleaner dressing TID gauze cont dressings will monitor as improving looks more like infection that was out of control. wound healing well will cont local care and monitor wound 80% healed improving daily will monitor may not need surgery wound is almost completely healed. no signs of infection at this time no signs of skin tumor cont with local care. will monitor thank you (4) Metabolic acidosis (5) Profound anemia (6) Chest pain (7) ESRD (end stage renal disease) on dialysis (8) Mathew Brown Jul 20, 2020 12:31
--- NOTE | 2020-07-20 14:14 | Cardiac Electrophysiology PN ---
Assessment/Plan Assessment/Plan 1. Atrial fibrillation and RVR with heart rate of 180s. On Dig 0.125 daily, Cardizem 60 po tid, Amiodarone 400 bid. Hold Eliquis as stool OB is positive now. EF 65%. Dig Level 2.2.Change Dig to 0.125 MWF. DC Dig and decrease Amiodarone to 200 bid 2. Troponin leak likely due to renal failure and atrial fib with RVR. ECho Nl EF 3. Profound anemia, hemoglobin of 6. S/P blood transfusion. Stool OB is now positive Could be due to renal failure. FU GI and hematology 4. Acute on chronic renal failure in a patient with history of kidney transplan t. Back on hemodialysis via Left arm AVF under management of Dr. Alisha Hyde. 5. Thrombocytopenia. 6. History of hypertension.On Cardizem and HD 7. Sepsis with Staph aureus and E.coli on iv Abx per Dr Eulalia ORDAZ RN Subjective Subjective On tele in SR. Alert in NAD. On iv Ab for Staph Aureus sepsis and E. Coli Bacteremia. No CP Dig level yesterday was 2.2 . Had transient bradycardia today Objective Last 24 Hour Vital Signs Date Time Temp Pulse Resp B/P (MAP) Pulse Ox O2 Delivery O2 Flow Rate FiO2 07/20/20 12:00 63 07/20/20 12:00 96.6 57 20 134/61 (85) 97 07/20/20 09:00 Room Air 07/20/20 09:00 50 07/20/20 08:00 97.7 50 18 94/47 (63) 97 07/20/20 08:00 49 07/20/20 06:00 72 110/54 07/20/20 04:00 60 07/20/20 04:00 97.3 76 19 110/54 (72) 100 07/20/20 00:00 61 07/20/20 00:00 98.1 61 21 111/54 (73) 100 07/19/20 22:00 62 112/64 07/19/20 21:00 Room Air 07/19/20 20:03 98 Nasal Cannula 2.0 28 07/19/20 20:00 62 07/19/20 20:00 99.3 62 19 104/56 (72) 100 Intake and Output 07/19/20 07/20/20 19:00 07:00 # Voids 1 Laboratory Tests Test 07/20/20 06:06 White Blood Count 7.3 K/UL (4.8-10.8) Red Blood Count 3.37 M/UL (4.70-6.10) L Hemoglobin 9.6 G/DL (14.2-18.0) L Hematocrit 31.9 % (42.0-52.0) L Mean Corpuscular Volume 95 FL (80-99) Mean Corpuscular Hemoglobin 28.6 PG (27.0-31.0) Mean Corpuscular Hemoglobin Concent 30.2 G/DL (32.0-36.0) L Red Cell Distribution Width 16.1 % (11.6-14.8) H Platelet Count 160 K/UL (150-450) Mean Platelet Volume 6.0 FL (6.5-10.1) L Neutrophils (%) (Auto) 52.3 % (45.0-75.0) Lymphocytes (%) (Auto) 29.6 % (20.0-45.0) Monocytes (%) (Auto) 15.8 % (1.0-10.0) H Eosinophils (%) (Auto) 0.7 % (0.0-3.0) Basophils (%) (Auto) 1.6 % (0.0-2.0) Sodium Level 139 MMOL/L (136-145) Potassium Level 4.1 MMOL/L (3.5-5.1) Chloride Level 102 MMOL/L (98-107) Carbon Dioxide Level 22 MMOL/L (21-32) Anion Gap 15 mmol/L (5-15) Blood Urea Nitrogen 54 mg/dL (7-18) H Creatinine 8.5 MG/DL (0.55-1.30) H Estimat Glomerular Filtration Rate 6.5 mL/min (>60) Glucose Level 96 MG/DL (74-106) Calcium Level 9.1 MG/DL (8.5-10.1) Objective HEAD AND NECK: Positive JVD. LUNGS: Decreased breath sounds. CARDIOVASCULAR: Shows irregularly irregular, tachycardic S1 and S2. ABDOMEN: Soft. EXTREMITIES: No pitting edema.Left arm AVF Juaquin Tomlin MD Jul 20, 2020 14:14
[2020-07-20 16:00] VITALS: BP 126/61
[2020-07-20 20:00] VITALS: BP 100/55
[2020-07-20] MEDS ORDERED: Epoetin Alfa-EPBX(ESRD on dialysis)4000 units/ml vial SUBQ SCH (21:00)
--- NOTE | 2020-07-20 21:53 | General Progress Note ---
Assessment/Plan Problem List: (1) ESRD (end stage renal disease) on dialysis ICD Codes: N18.6 - End stage renal disease; Z99.2 - Dependence on renal dialysis SNOMED: 663065674 (2) Metabolic acidosis ICD Codes: E87.2 - Acidosis SNOMED: 10336363 (3) Profound anemia ICD Codes: D64.9 - Anemia, unspecified SNOMED: 332163572 Qualifiers: Qualified Codes: D64.9 - Anemia, unspecified (4) Elevated troponin ICD Codes: R79.89 - Other specified abnormal findings of blood chemistry SNOMED: 584246498, 768767298, 672650793 (5) Status post kidney transplant ICD Codes: Z94.0 - Kidney transplant status SNOMED: 791629458, 27634507, 68916773 Assessment/Plan: abxs HD thursday follow labs continue Epogen Subjective Allergies: Coded Allergies: ASPIRIN (Verified Allergy, Unknown, 07/04/20) Subjective all noted Objective Last 24 Hour Vital Signs Date Time Temp Pulse Resp B/P (MAP) Pulse Ox O2 Delivery O2 Flow Rate FiO2 07/20/20 16:00 63 07/20/20 16:00 99.0 61 18 126/61 (82) 97 07/20/20 12:00 63 07/20/20 12:00 96.6 57 20 134/61 (85) 97 07/20/20 09:00 Room Air 07/20/20 09:00 50 07/20/20 08:00 97.7 50 18 94/47 (63) 97 07/20/20 08:00 49 07/20/20 06:00 72 110/54 07/20/20 04:00 60 07/20/20 04:00 97.3 76 19 110/54 (72) 100 07/20/20 00:00 61 07/20/20 00:00 98.1 61 21 111/54 (73) 100 07/19/20 22:00 62 112/64 Intake and Output 07/19/20 07/20/20 19:00 07:00 # Voids 1 Laboratory Tests 07/20/20 06:06: White Blood Count 7.3, Red Blood Count 3.37L, Hemoglobin 9.6L, Hematocrit 31.9L , Mean Corpuscular Volume 95, Mean Corpuscular Hemoglobin 28.6, Mean Corpuscular Hemoglobin Concent 30.2L, Red Cell Distribution Width 16.1H, Platelet Count 160, Mean Platelet Volume 6.0L, Neutrophils (%) (Auto) 52.3, Lymphocytes (%) (Auto) 29.6, Monocytes (%) (Auto) 15.8H, Eosinophils (%) (Auto) 0.7, Basophils (%) (Auto) 1.6, Sodium Level 139, Potassium Level 4.1, Chloride Level 102, Carbon Dioxide Level 22, Anion Gap 15, Blood Urea Nitrogen 54H, Creatinine 8.5H, Estimat Glomerular Filtration Rate 6.5, Glucose Level 96, Calcium Level 9.1 Height (Feet): 5 Height (Inches): 7.00 Weight (Pounds): 132 Raulito Hyde MD Jul 20, 2020 21:53
[2020-07-21] VITALS (7 sets, daily range): BP systolic 101–136; BP diastolic 57–76
[2020-07-21] MEDS: dilTIAZem HCl 60mg tab ORAL SCH ×3 (05:49→21:30)
[2020-07-21] MEDS: Calcitriol 0.25mcg Cap ORAL SCH (08:48)
[2020-07-21] MEDS: Amiodarone 200mg tab ORAL SCH ×2 (08:49→21:29)
[2020-07-21] MEDS: Nephrovite tab (Rena-Vite) ORAL SCH (08:49)
--- NOTE | 2020-07-21 10:30 | Surgery Progress Note ---
Surgery Progress Note Subjective Symptoms: improved, pain absent, tolerating diet, passing flatus, BM Objective Last 24 Hour Vital Signs Date Time Temp Pulse Resp B/P (MAP) Pulse Ox O2 Delivery O2 Flow Rate FiO2 07/21/20 08:11 Room Air 07/21/20 08:00 98.1 65 18 114/61 (78) 98 07/21/20 05:49 70 104/59 07/21/20 04:00 99.1 70 18 104/59 (74) 97 07/21/20 04:00 59 07/21/20 00:00 98.6 70 18 101/57 (72) 96 07/21/20 00:00 60 07/20/20 22:00 70 100/35 07/20/20 21:00 Room Air 07/20/20 20:00 99.3 70 17 100/55 (70) 95 07/20/20 20:00 70 07/20/20 19:24 98 Room Air 21 07/20/20 16:00 63 07/20/20 16:00 99.0 61 18 126/61 (82) 97 07/20/20 12:00 63 07/20/20 12:00 96.6 57 20 134/61 (85) 97 I&O Intake and Output 07/20/20 07/21/20 19:00 07:00 Intake Total 300 ml Balance 300 ml Intake Oral 300 ml # Voids 2 # Bowel Movements 1 Dressing: dry Wound: clean Cardiovascular: RSR Respiratory: clear Abdomen: soft, non-tender, present bowel sounds Extremities: no edema, no tenderness, no cyanosis Plan Problems: (1) Elevated troponin (2) Acute renal failure (3) Basal cell carcinoma Assessment & Plan: Right forehead scalp open wound potential basal cell carcinoma ulcerated raised edges significant slough in the center. Infected. Recommend local wound care and infection control. Will considerations for biopsy versus excisional biopsy with flap. Need medical optimization resuscitation first. Continue with current medical care. Discussed with patient and PCP. Will consider plans for local control upon improvement. Thank you fine partition patient's care. Wash wound daily with normal saline. Apply dressings 3 times daily. non excisional debridement at bedside wound much ditch cleaner dressing TID gauze cont dressings will monitor as improving looks more like infection that was out of control. wound healing well will cont local care and monitor wound 80% healed improving daily will monitor may not need surgery wound is almost completely healed. no signs of infection at this time no signs of skin tumor cont with local care. will monitor thank you (4) Metabolic acidosis (5) Profound anemia (6) Chest pain (7) ESRD (end stage renal disease) on dialysis (8) Mathew Brown Jul 21, 2020 10:30
--- NOTE | 2020-07-21 14:13 | Cardiac Electrophysiology PN ---
Assessment/Plan Assessment/Plan 1. Atrial fibrillation and RVR with heart rate of 180s. On Cardizem 60 po tid, Amiodarone 200 bid. Hold Eliquis as stool OB is positive now. EF 65%. 2. Troponin leak likely due to renal failure and atrial fib with RVR. ECho Nl EF 3. Profound anemia, hemoglobin of 6. S/P blood transfusion. Stool OB is now positive Could be due to renal failure. FU GI and hematology 4. Acute on chronic renal failure in a patient with history of kidney transplan t. Back on hemodialysis via Left arm AVF under management of Dr. Alisha Hyde. 5. Thrombocytopenia. 6. History of hypertension.On Cardizem and HD 7. Sepsis with Staph aureus and E.coli off Abx per Dr Eulalia ORDAZ RN Subjective Subjective On tele in SR. Alert in NAD. On iv Ab for Staph Aureus and E. Coli Bacteremia. No CP Had transient bradycardia yesterday. Objective Last 24 Hour Vital Signs Date Time Temp Pulse Resp B/P (MAP) Pulse Ox O2 Delivery O2 Flow Rate FiO2 07/21/20 12:00 66 07/21/20 12:00 97.9 67 20 136/70 (92) 97 07/21/20 08:11 Room Air 07/21/20 08:00 98.1 65 18 114/61 (78) 98 07/21/20 08:00 66 07/21/20 05:49 70 104/59 07/21/20 04:00 99.1 70 18 104/59 (74) 97 07/21/20 04:00 59 07/21/20 00:00 98.6 70 18 101/57 (72) 96 07/21/20 00:00 60 07/20/20 22:00 70 100/35 07/20/20 21:00 Room Air 07/20/20 20:00 99.3 70 17 100/55 (70) 95 07/20/20 20:00 70 07/20/20 19:24 98 Room Air 21 07/20/20 16:00 63 07/20/20 16:00 99.0 61 18 126/61 (82) 97 Intake and Output 07/20/20 07/21/20 19:00 07:00 Intake Total 300 ml Balance 300 ml Intake Oral 300 ml # Voids 2 # Bowel Movements 1 Objective HEAD AND NECK: Positive JVD. LUNGS: Decreased breath sounds. CARDIOVASCULAR: Shows irregularly irregular, tachycardic S1 and S2. ABDOMEN: Soft. EXTREMITIES: No pitting edema.Left arm AVF Juaquin Tomlin MD Jul 21, 2020 14:13
[2020-07-21] MEDS ORDERED: Heparin Sod 1000 units/ml 10ml IV PRN (18:00)
[2020-07-21] MEDS ORDERED: Nitroglycerin Subl 0.4mg tab SL PRN (18:00)
--- NOTE | 2020-07-21 23:16 | General Progress Note ---
Assessment/Plan Problem List: (1) ESRD (end stage renal disease) on dialysis ICD Codes: N18.6 - End stage renal disease; Z99.2 - Dependence on renal dialysis SNOMED: 945382672 (2) Metabolic acidosis ICD Codes: E87.2 - Acidosis SNOMED: 31287780 (3) Profound anemia ICD Codes: D64.9 - Anemia, unspecified SNOMED: 525272356 Qualifiers: Qualified Codes: D64.9 - Anemia, unspecified (4) Elevated troponin ICD Codes: R79.89 - Other specified abnormal findings of blood chemistry SNOMED: 466056148, 149235109, 780156886 (5) Status post kidney transplant ICD Codes: Z94.0 - Kidney transplant status SNOMED: 660644746, 47410608, 79114454 Assessment/Plan: abxs HD thursday follow labs continue Epogen Subjective Allergies: Coded Allergies: ASPIRIN (Verified Allergy, Unknown, 07/04/20) Subjective all noted Objective Last 24 Hour Vital Signs Date Time Temp Pulse Resp B/P (MAP) Pulse Ox O2 Delivery O2 Flow Rate FiO2 07/21/20 21:30 67 135/76 07/21/20 21:00 Room Air 07/21/20 20:00 97.5 67 18 135/76 (95) 98 07/21/20 19:45 97 Room Air 21 07/21/20 18:15 98.1 75 18 136/68 (90) 99 07/21/20 16:00 98.1 58 18 117/66 (83) 98 07/21/20 14:00 59 136/70 07/21/20 12:00 66 07/21/20 12:00 97.9 67 20 136/70 (92) 97 07/21/20 08:11 Room Air 07/21/20 08:00 98.1 65 18 114/61 (78) 98 07/21/20 08:00 66 07/21/20 05:49 70 104/59 07/21/20 04:00 99.1 70 18 104/59 (74) 97 07/21/20 04:00 59 07/21/20 00:00 98.6 70 18 101/57 (72) 96 07/21/20 00:00 60 Intake and Output 07/20/20 07/21/20 19:00 07:00 Intake Total 300 ml Balance 300 ml Intake Oral 300 ml # Voids 2 # Bowel Movements 1 Height (Feet): 5 Height (Inches): 7.00 Weight (Pounds): 132 Raulito Hyde MD Jul 21, 2020 23:16
[2020-07-22] VITALS (8 sets, daily range): BP systolic 105–133; BP diastolic 54–73
[2020-07-22] MEDS: dilTIAZem HCl 60mg tab ORAL SCH ×3 (05:26→22:00)
[2020-07-22] MEDS ORDERED: Miralax 17gm pkt ORAL PRN (07:30)
[2020-07-22] MEDS: Nephrovite tab (Rena-Vite) ORAL SCH (08:11)
[2020-07-22] MEDS: Calcitriol 0.25mcg Cap ORAL SCH (08:11)
[2020-07-22] MEDS: Amiodarone 200mg tab ORAL SCH ×2 (08:12→21:00)
--- NOTE | 2020-07-22 12:34 | Infectious Diseases Prog Note ---
Assessment/Plan Assessment/Plan IMPRESSION: Sepsis with Staph aureus and E.coli treated Atrial fibrillation with RVR Right temporal ulcer , healing Failure of kidney transplant, Renal failure, Acidosis, Severe anemia, Hypertension. MRSA carrier RECOMMENDATIONS: Observe off antibiotic Skin lesion was most likely infection Surgeon doubts malignancy Subjective ROS Limited/Unobtainable: No Constitutional: Reports: no symptoms Respiratory: Reports: no symptoms Gastrointestinal/Abdominal: Reports: no symptoms Genitourinary: Reports: no symptoms Allergies: Coded Allergies: ASPIRIN (Verified Allergy, Unknown, 07/04/20) Objective Last 24 Hour Vital Signs Date Time Temp Pulse Resp B/P (MAP) Pulse Ox O2 Delivery O2 Flow Rate FiO2 07/22/20 12:00 96.6 60 18 130/68 (88) 98 07/22/20 08:00 97.0 65 18 132/68 (89) 98 07/22/20 05:26 61 113/62 07/22/20 04:00 97.6 61 18 113/62 (79) 96 07/22/20 00:00 97.3 61 18 105/54 (71) 97 07/21/20 21:30 67 135/76 07/21/20 21:00 Room Air 07/21/20 20:00 97.5 67 18 135/76 (95) 98 07/21/20 19:45 97 Room Air 21 07/21/20 18:15 98.1 75 18 136/68 (90) 99 07/21/20 16:00 98.1 58 18 117/66 (83) 98 07/21/20 14:00 59 136/70 Height (Feet): 5 Height (Inches): 7.00 Weight (Pounds): 132 General Appearance: no acute distress HEENT: mucous membranes moist Respiratory/Chest: lungs clear Cardiovascular: normal rate Abdomen: soft, non tender Extremities: no edema Skin: other - R temporal ulcer healing Neurologic/Psychiatric: alert, oriented x 3, responsive Current Medications Medications (Trade) Dose Ordered Sig/Marco A Route PRN Reason Start Time Stop Time Status Last Admin Dose Admin Acetaminophen (Tylenol) 650 mg Q4H PRN ORAL Mild Pain (Pain Scale 1-3) 07/21/20 17:55 08/16/20 17:54 Amiodarone HCl (Cordarone) 200 mg EVERY 12 HOURS ORAL 07/21/20 21:00 10/15/20 20:59 9/6/20 08:12 Calcitriol (Rocatrol) 0.25 mcg DAILY ORAL 07/22/20 09:00 10/05/20 13:59 07/22/20 08:11 Chlorpromazine (Thorazine) 25 mg TIDPRN PRN ORAL hiccup 07/22/20 14:45 08/16/20 14:31 Dextrose (Dextrose 50%) 25 ml Q30M PRN IV Hypoglycemia 07/21/20 18:15 10/02/20 18:44 Dextrose (Dextrose 50%) 50 ml Q30M PRN IV Hypoglycemia 07/21/20 18:00 10/02/20 16:59 Diltiazem HCl (Cardizem Tab) 60 mg EVERY 8 HOURS ORAL 07/21/20 22:00 08/05/20 13:59 07/22/20 05:26 Epoetin Mode (Epoetin Mode(ESRD on dialysis)) 8,000 unit THU-THU-THU SUBQ 07/23/20 21:00 10/02/20 20:59 Heparin Sodium (Porcine) (Heparin Sod 1000 units/ml 10ml) 500 unit ONCE PRN IV FOR HD USE 07/21/20 18:00 07/26/20 17:59 Nitroglycerin (Ntg) 0.4 mg Q5M PRN SL Prn Chest Pain 07/21/20 18:00 08/16/20 14:31 Polyethylene Glycol (Miralax) 17 gm DAILYPRN PRN ORAL Constipation 07/22/20 07:30 08/16/20 07:29 Vitamin B Complex/ Vit C/Folic Acid (Nephrovite) 1 tab DAILY ORAL 07/22/20 09:00 08/03/20 19:59 07/22/20 08:11 Darius Hyde MD Jul 22, 2020 12:34
[2020-07-22] MEDS ORDERED: chlorproMAZINE 10mg tab ORAL PRN (14:45)
--- NOTE | 2020-07-22 20:09 | General Progress Note ---
Assessment/Plan Problem List: (1) ESRD (end stage renal disease) on dialysis ICD Codes: N18.6 - End stage renal disease; Z99.2 - Dependence on renal dialysis SNOMED: 071177721 (2) Metabolic acidosis ICD Codes: E87.2 - Acidosis SNOMED: 30395470 (3) Profound anemia ICD Codes: D64.9 - Anemia, unspecified SNOMED: 290870006 Qualifiers: Qualified Codes: D64.9 - Anemia, unspecified (4) Elevated troponin ICD Codes: R79.89 - Other specified abnormal findings of blood chemistry SNOMED: 823717580, 034128905, 844266454 (5) Status post kidney transplant ICD Codes: Z94.0 - Kidney transplant status SNOMED: 302732625, 23006840, 83134878 Assessment/Plan: off abxs HD tomorrow follow labs continue Epogen Subjective Allergies: Coded Allergies: ASPIRIN (Verified Allergy, Unknown, 07/04/20) Subjective all noted Objective Last 24 Hour Vital Signs Date Time Temp Pulse Resp B/P (MAP) Pulse Ox O2 Delivery O2 Flow Rate FiO2 07/22/20 18:35 99.5 50 18 113/63 (80) 97 60 07/22/20 16:00 99.5 50 18 113/63 (80) 97 60 07/22/20 16:00 99.5 50 18 113/63 (80) 97 60 07/22/20 14:41 60 130/68 07/22/20 12:00 96.6 60 18 130/68 (88) 98 07/22/20 08:00 97.0 65 18 132/68 (89) 98 07/22/20 05:26 61 113/62 07/22/20 04:00 97.6 61 18 113/62 (79) 96 07/22/20 00:00 97.3 61 18 105/54 (71) 97 07/21/20 21:30 67 135/76 07/21/20 21:00 Room Air Intake and Output 07/21/20 07/22/20 19:00 07:00 Intake Total 360 ml 480 ml Balance 360 ml 480 ml Intake Oral 360 ml 480 ml # Voids 1 2 Height (Feet): 5 Height (Inches): 7.00 Weight (Pounds): 132 Raulito Hyde MD Jul 22, 2020 20:08
[2020-07-23 03:31] VITALS: BP 115/58
[2020-07-23] MEDS: dilTIAZem HCl 60mg tab ORAL SCH (05:00)
[2020-07-23] MEDS ORDERED: Heparin Sod 1000 units/ml 10ml IV SCH (06:00)
[2020-07-23] MEDS ORDERED: Heparin 5000 units/ml inj INJ SCH (06:00)
[2020-07-23 07:06] LABS: ANION GAP 16 mmol/L (5-15); BLOOD UREA NITROGEN 54 mg/dL (7-18); CARBON DIOXIDE 16 MMOL/L (21-32); CHLORIDE 105 MMOL/L (98-107); PHOSPHORUS 7.1 MG/DL (2.5-4.9); POTASSIUM 4.3 MMOL/L (3.5-5.1); SODIUM 137 MMOL/L (136-145)
[2020-07-23 07:21] LABS: BASOPHILS % (AUTO) 1.3 % (0.0-2.0); EOSINOPHILS % (AUTO) 0.8 % (0.0-3.0); HEMATOCRIT 34.1 % (42.0-52.0); HEMOGLOBIN 10.2 G/DL (14.2-18.0); MEAN CORPUSCULAR VOLUME 95 FL (80-99); MONOCYTES % (AUTO) 12.3 % (1.0-10.0); NEUTROPHILS % (AUTO) 57.5 % (45.0-75.0); PLATELET COUNT 156 K/UL (150-450); RED CELL DISTRIBUTION WIDTH 15.3 % (11.6-14.8); WHITE BLOOD COUNT 7.7 K/UL (4.8-10.8)
[2020-07-23 08:00] VITALS: BP 119/68
[2020-07-23] MEDS: Calcitriol 0.25mcg Cap ORAL SCH (08:13)
[2020-07-23] MEDS: Nephrovite tab (Rena-Vite) ORAL SCH (08:14)
[2020-07-23] MEDS: Amiodarone 200mg tab ORAL SCH (08:14)
[2020-07-23 12:00] VITALS: BP 131/77
--- NOTE | 2020-07-23 12:08 | General Progress Note ---
Assessment/Plan Problem List: (1) ESRD (end stage renal disease) on dialysis ICD Codes: N18.6 - End stage renal disease; Z99.2 - Dependence on renal dialysis SNOMED: 368945404 (2) Metabolic acidosis ICD Codes: E87.2 - Acidosis SNOMED: 90875934 (3) Profound anemia ICD Codes: D64.9 - Anemia, unspecified SNOMED: 902291590 Qualifiers: Qualified Codes: D64.9 - Anemia, unspecified (4) Elevated troponin ICD Codes: R79.89 - Other specified abnormal findings of blood chemistry SNOMED: 431990759, 535898530, 714197334 (5) Status post kidney transplant ICD Codes: Z94.0 - Kidney transplant status SNOMED: 107247685, 58366132, 61369020 Assessment/Plan: hold amiodarone and [facility] HD today discussed with Dr Nabor Lovelace when cleared by pharmacy technician Subjective Allergies: Coded Allergies: ASPIRIN (Verified Allergy, Unknown, 07/04/20) Subjective pt became bradycardic last night Objective Last 24 Hour Vital Signs Date Time Temp Pulse Resp B/P (MAP) Pulse Ox O2 Delivery O2 Flow Rate FiO2 07/23/20 08:00 96.6 70 18 119/68 (85) 99 70 07/23/20 05:00 60 115/58 07/23/20 03:31 97.3 60 18 115/58 (77) 99 60 07/22/20 23:33 97.9 61 18 133/73 (93) 98 61 07/22/20 22:00 48 118/64 07/22/20 21:00 Room Air 07/22/20 20:00 98.1 48 18 118/64 (82) 98 48 07/22/20 18:35 99.5 50 18 113/63 (80) 97 60 07/22/20 16:00 99.5 50 18 113/63 (80) 97 60 07/22/20 16:00 99.5 50 18 113/63 (80) 97 60 07/22/20 14:41 60 130/68 Intake and Output 07/22/20 07/23/20 19:00 07:00 Intake Total 500 ml 400 ml Balance 500 ml 400 ml Intake Oral 500 ml 400 ml # Voids 2 2 # Bowel Movements 2 Laboratory Tests 07/23/20 06:05: White Blood Count 7.7, Red Blood Count 3.60L, Hemoglobin 10.2L, Hematocrit 34.1L , Mean Corpuscular Volume 95, Mean Corpuscular Hemoglobin 28.2, Mean Corpuscular Hemoglobin Concent 29.8L, Red Cell Distribution Width 15.3H, Platelet Count 156, Mean Platelet Volume 6.9, Neutrophils (%) (Auto) 57.5, Lymphocytes (%) (Auto) 28.0, Monocytes (%) (Auto) 12.3H, Eosinophils (%) (Auto) 0.8, Basophils (%) (Auto) 1.3, Sodium Level 137, Potassium Level 4.3, Chloride Level 105, Carbon Dioxide Level 16L, Anion Gap 16H, Blood Urea Nitrogen 54H, Creatinine 10.0H, Estimat Glomerular Filtration Rate 5.4, Glucose Level 90, Calcium Level 9.0, Phosphorus Level 7.1H Height (Feet): 5 Height (Inches): 7.00 Weight (Pounds): 132 Cardiovascular: normal rate Respiratory/Chest: lungs clear Raulito Hyde MD Jul 23, 2020 12:08
--- NOTE | 2020-07-23 12:26 | Surgery Progress Note ---
Surgery Progress Note Subjective Symptoms: improved, pain absent, tolerating diet, passing flatus, BM Objective Last 24 Hour Vital Signs Date Time Temp Pulse Resp B/P (MAP) Pulse Ox O2 Delivery O2 Flow Rate FiO2 07/23/20 12:00 97.9 68 18 131/77 (95) 99 70 07/23/20 08:00 96.6 70 18 119/68 (85) 99 70 07/23/20 05:00 60 115/58 07/23/20 03:31 97.3 60 18 115/58 (77) 99 60 07/22/20 23:33 97.9 61 18 133/73 (93) 98 61 07/22/20 22:00 48 118/64 07/22/20 21:00 Room Air 07/22/20 20:00 98.1 48 18 118/64 (82) 98 48 07/22/20 18:35 99.5 50 18 113/63 (80) 97 60 07/22/20 16:00 99.5 50 18 113/63 (80) 97 60 07/22/20 16:00 99.5 50 18 113/63 (80) 97 60 07/22/20 14:41 60 130/68 I&O Intake and Output 07/22/20 07/23/20 19:00 07:00 Intake Total 500 ml 400 ml Balance 500 ml 400 ml Intake Oral 500 ml 400 ml # Voids 2 2 # Bowel Movements 2 Dressing: dry Wound: clean Cardiovascular: RSR Respiratory: clear Abdomen: soft, non-tender, present bowel sounds Extremities: no edema, no tenderness, no cyanosis Laboratory Tests Test 07/23/20 06:05 White Blood Count 7.7 K/UL (4.8-10.8) Red Blood Count 3.60 M/UL (4.70-6.10) L Hemoglobin 10.2 G/DL (14.2-18.0) L Hematocrit 34.1 % (42.0-52.0) L Mean Corpuscular Volume 95 FL (80-99) Mean Corpuscular Hemoglobin 28.2 PG (27.0-31.0) Mean Corpuscular Hemoglobin Concent 29.8 G/DL (32.0-36.0) L Red Cell Distribution Width 15.3 % (11.6-14.8) H Platelet Count 156 K/UL (150-450) Mean Platelet Volume 6.9 FL (6.5-10.1) Neutrophils (%) (Auto) 57.5 % (45.0-75.0) Lymphocytes (%) (Auto) 28.0 % (20.0-45.0) Monocytes (%) (Auto) 12.3 % (1.0-10.0) H Eosinophils (%) (Auto) 0.8 % (0.0-3.0) Basophils (%) (Auto) 1.3 % (0.0-2.0) Sodium Level 137 MMOL/L (136-145) Potassium Level 4.3 MMOL/L (3.5-5.1) Chloride Level 105 MMOL/L (98-107) Carbon Dioxide Level 16 MMOL/L (21-32) L Anion Gap 16 mmol/L (5-15) H Blood Urea Nitrogen 54 mg/dL (7-18) H Creatinine 10.0 MG/DL (0.55-1.30) H Estimat Glomerular Filtration Rate 5.4 mL/min (>60) Glucose Level 90 MG/DL (74-106) Calcium Level 9.0 MG/DL (8.5-10.1) Phosphorus Level 7.1 MG/DL (2.5-4.9) H Plan Problems: (1) Elevated troponin (2) Acute renal failure (3) Basal cell carcinoma Assessment & Plan: Right forehead scalp open wound potential basal cell carcinoma ulcerated raised edges significant slough in the center. Infected. Recommend local wound care and infection control. Will considerations for biopsy versus excisional biopsy with flap. Need medical optimization resuscitation first. Continue with current medical care. Discussed with patient and PCP. Will consider plans for local control upon improvement. Thank you fine partition patient's care. Wash wound daily with normal saline. Apply dressings 3 times daily. non excisional debridement at bedside wound much tube cleaner dressing TID gauze cont dressings will monitor as improving looks more like infection that was out of control. wound healing well will cont local care and monitor wound 80% healed improving daily will monitor may not need surgery wound is almost completely healed. no signs of infection at this time no signs of skin tumor cont with local care. will monitor thank you outpatient follow up okay to d/c nearly resolved (4) Metabolic acidosis (5) Profound anemia (6) Chest pain (7) ESRD (end stage renal disease) on dialysis (8) Mtahew Brown Jul 23, 2020 12:26
--- NOTE | 2020-07-23 12:36 | Cardiac Electrophysiology PN ---
Assessment/Plan Assessment/Plan 1. Atrial fibrillation and RVR with heart rate of 180s. Now urmila. Change Cardizem to Cardizem CD 120 daily and decrease Amiodarone to 200 daily DCed Eliquis as stool OB is positive . EF 65%. Transfer to tele 2. Troponin leak likely due to renal failure and atrial fib with RVR. ECho Nl EF 3. Profound anemia, hemoglobin of 6. S/P blood transfusion. Stool OB is positive Could be due to renal failure. FU GI and hematology 4. Acute on chronic renal failure in a patient with history of kidney transplan t. Back on hemodialysis via Left arm AVF under management of Dr. Alisha Hyde. 5. Thrombocytopenia. 6. History of hypertension.On Cardizem and HD 7. Sepsis with Staph aureus and E.coli, off Abx per Dr Eulalia ORDAZ RN Subjective Subjective Alert in NAD. No CP Had bradycardia again with HR 40s lastnight and Amio and Lopressor was not given Objective Last 24 Hour Vital Signs Date Time Temp Pulse Resp B/P (MAP) Pulse Ox O2 Delivery O2 Flow Rate FiO2 07/23/20 12:00 97.9 68 18 131/77 (95) 99 70 07/23/20 08:00 96.6 70 18 119/68 (85) 99 70 07/23/20 05:00 60 115/58 07/23/20 03:31 97.3 60 18 115/58 (77) 99 60 07/22/20 23:33 97.9 61 18 133/73 (93) 98 61 07/22/20 22:00 48 118/64 07/22/20 21:00 Room Air 07/22/20 20:00 98.1 48 18 118/64 (82) 98 48 07/22/20 18:35 99.5 50 18 113/63 (80) 97 60 07/22/20 16:00 99.5 50 18 113/63 (80) 97 60 07/22/20 16:00 99.5 50 18 113/63 (80) 97 60 07/22/20 14:41 60 130/68 Intake and Output 07/22/20 07/23/20 19:00 07:00 Intake Total 500 ml 400 ml Balance 500 ml 400 ml Intake Oral 500 ml 400 ml # Voids 2 2 # Bowel Movements 2 Laboratory Tests Test 07/23/20 06:05 White Blood Count 7.7 K/UL (4.8-10.8) Red Blood Count 3.60 M/UL (4.70-6.10) L Hemoglobin 10.2 G/DL (14.2-18.0) L Hematocrit 34.1 % (42.0-52.0) L Mean Corpuscular Volume 95 FL (80-99) Mean Corpuscular Hemoglobin 28.2 PG (27.0-31.0) Mean Corpuscular Hemoglobin Concent 29.8 G/DL (32.0-36.0) L Red Cell Distribution Width 15.3 % (11.6-14.8) H Platelet Count 156 K/UL (150-450) Mean Platelet Volume 6.9 FL (6.5-10.1) Neutrophils (%) (Auto) 57.5 % (45.0-75.0) Lymphocytes (%) (Auto) 28.0 % (20.0-45.0) Monocytes (%) (Auto) 12.3 % (1.0-10.0) H Eosinophils (%) (Auto) 0.8 % (0.0-3.0) Basophils (%) (Auto) 1.3 % (0.0-2.0) Sodium Level 137 MMOL/L (136-145) Potassium Level 4.3 MMOL/L (3.5-5.1) Chloride Level 105 MMOL/L (98-107) Carbon Dioxide Level 16 MMOL/L (21-32) L Anion Gap 16 mmol/L (5-15) H Blood Urea Nitrogen 54 mg/dL (7-18) H Creatinine 10.0 MG/DL (0.55-1.30) H Estimat Glomerular Filtration Rate 5.4 mL/min (>60) Glucose Level 90 MG/DL (74-106) Calcium Level 9.0 MG/DL (8.5-10.1) Phosphorus Level 7.1 MG/DL (2.5-4.9) H Objective HEAD AND NECK: Positive JVD. LUNGS: Decreased breath sounds. CARDIOVASCULAR: Shows irregularly irregular, tachycardic S1 and S2. ABDOMEN: Soft. EXTREMITIES: No pitting edema.Left arm AVF Juaquin Tomlin MD Jul 23, 2020 12:36
--- NOTE | 2020-07-23 13:09 | Infectious Diseases Prog Note ---
Assessment/Plan Assessment/Plan IMPRESSION: Sepsis with Staph aureus and E.coli treated Atrial fibrillation Right temporal ulcer , healing Failure of kidney transplant, Renal failure, Acidosis, Severe anemia, Hypertension. MRSA carrier Bradycardia RECOMMENDATIONS: Observe off antibiotic Skin lesion was most likely infection related Surgeon doubts malignancy Subjective ROS Limited/Unobtainable: No Constitutional: Reports: no symptoms Respiratory: Reports: no symptoms Gastrointestinal/Abdominal: Reports: no symptoms, other - transferred to telemetry for bradycardia Genitourinary: Reports: no symptoms Allergies: Coded Allergies: ASPIRIN (Verified Allergy, Unknown, 07/04/20) Objective Last 24 Hour Vital Signs Date Time Temp Pulse Resp B/P (MAP) Pulse Ox O2 Delivery O2 Flow Rate FiO2 07/23/20 12:00 97.9 68 18 131/77 (95) 99 70 07/23/20 08:00 96.6 70 18 119/68 (85) 99 70 07/23/20 05:00 60 115/58 07/23/20 03:31 97.3 60 18 115/58 (77) 99 60 07/22/20 23:33 97.9 61 18 133/73 (93) 98 61 07/22/20 22:00 48 118/64 07/22/20 21:00 Room Air 07/22/20 20:00 98.1 48 18 118/64 (82) 98 48 07/22/20 18:35 99.5 50 18 113/63 (80) 97 60 07/22/20 16:00 99.5 50 18 113/63 (80) 97 60 07/22/20 16:00 99.5 50 18 113/63 (80) 97 60 07/22/20 14:41 60 130/68 Height (Feet): 5 Height (Inches): 7.00 Weight (Pounds): 132 General Appearance: no acute distress HEENT: mucous membranes moist Respiratory/Chest: lungs clear Cardiovascular: normal rate Abdomen: soft, non tender Extremities: no edema Neurologic/Psychiatric: alert, oriented x 3, responsive Laboratory Tests Test 07/23/20 06:05 White Blood Count 7.7 K/UL (4.8-10.8) Red Blood Count 3.60 M/UL (4.70-6.10) L Hemoglobin 10.2 G/DL (14.2-18.0) L Hematocrit 34.1 % (42.0-52.0) L Mean Corpuscular Volume 95 FL (80-99) Mean Corpuscular Hemoglobin 28.2 PG (27.0-31.0) Mean Corpuscular Hemoglobin Concent 29.8 G/DL (32.0-36.0) L Red Cell Distribution Width 15.3 % (11.6-14.8) H Platelet Count 156 K/UL (150-450) Mean Platelet Volume 6.9 FL (6.5-10.1) Neutrophils (%) (Auto) 57.5 % (45.0-75.0) Lymphocytes (%) (Auto) 28.0 % (20.0-45.0) Monocytes (%) (Auto) 12.3 % (1.0-10.0) H Eosinophils (%) (Auto) 0.8 % (0.0-3.0) Basophils (%) (Auto) 1.3 % (0.0-2.0) Sodium Level 137 MMOL/L (136-145) Potassium Level 4.3 MMOL/L (3.5-5.1) Chloride Level 105 MMOL/L (98-107) Carbon Dioxide Level 16 MMOL/L (21-32) L Anion Gap 16 mmol/L (5-15) H Blood Urea Nitrogen 54 mg/dL (7-18) H Creatinine 10.0 MG/DL (0.55-1.30) H Estimat Glomerular Filtration Rate 5.4 mL/min (>60) Glucose Level 90 MG/DL (74-106) Calcium Level 9.0 MG/DL (8.5-10.1) Phosphorus Level 7.1 MG/DL (2.5-4.9) H Current Medications Medications (Trade) Dose Ordered Sig/Marco A Route PRN Reason Start Time Stop Time Status Last Admin Dose Admin Acetaminophen (Tylenol) 650 mg Q4H PRN ORAL Mild Pain (Pain Scale 1-3) 07/21/20 17:55 08/16/20 17:54 Amiodarone HCl (Cordarone) 200 mg DAILY ORAL 07/24/20 09:00 10/22/20 08:59 Calcitriol (Rocatrol) 0.25 mcg DAILY ORAL 07/22/20 09:00 10/05/20 13:59 07/23/20 08:13 Chlorpromazine (Thorazine) 25 mg TIDPRN PRN ORAL hiccup 07/22/20 14:45 08/16/20 14:31 Dextrose (Dextrose 50%) 25 ml Q30M PRN IV Hypoglycemia 07/21/20 18:15 10/02/20 18:44 Dextrose (Dextrose 50%) 50 ml Q30M PRN IV Hypoglycemia 07/21/20 18:00 10/02/20 16:59 Diltiazem HCl (Cardizem CD) 120 mg DAILY ORAL 07/24/20 09:00 08/23/20 08:59 Epoetin Mode (Epoetin Mode(ESRD on dialysis)) 8,000 unit THU-THU-THU SUBQ 07/23/20 21:00 10/02/20 20:59 Heparin Sodium (Porcine) (Heparin 5000 units/ml) 5,000 units POSTHD INJ 07/23/20 06:00 09/06/20 05:59 Heparin Sodium (Porcine) (Heparin Sod 1000 units/ml 10ml) 500 unit ONCE PRN IV FOR HD USE 07/21/20 18:00 07/26/20 17:59 Heparin Sodium (Porcine) (Heparin Sod 1000 units/ml 10ml) 2,000 unit ONCE IV 07/23/20 06:00 07/23/20 23:59 Nitroglycerin (Ntg) 0.4 mg Q5M PRN SL Prn Chest Pain 07/21/20 18:00 08/16/20 14:31 Polyethylene Glycol (Miralax) 17 gm DAILYPRN PRN ORAL Constipation 07/22/20 07:30 08/16/20 07:29 Sodium Chloride 1,000 ml @ 500 mls/hr Q2H PRN IVLG sbp<90 during hd 07/23/20 20:09 08/22/20 20:08 Vitamin B Complex/ Vit C/Folic Acid (Nephrovite) 1 tab DAILY ORAL 07/22/20 09:00 08/03/20 19:59 07/23/20 08:14 Darius Hyde MD Jul 23, 2020 13:09
[2020-07-23] MEDS ORDERED: Nitroglycerin Subl 0.4mg tab SL PRN (13:15)
[2020-07-23] MEDS ORDERED: Heparin Sod 1000 units/ml 10ml IV PRN ×2 (13:15)
[2020-07-23 13:31] VITALS: BP 138/78
[2020-07-23] MEDS ORDERED: Heparin 5000 units/ml inj INJ PRN (13:36)
[2020-07-23] MEDS ORDERED: chlorproMAZINE 10mg tab ORAL PRN (13:45)
[2020-07-23 16:00] VITALS: BP 132/57
[2020-07-23 20:00] VITALS: BP 141/71
[2020-07-23] MEDS ORDERED: Epoetin Alfa-EPBX(ESRD on dialysis)4000 units/ml vial SUBQ SCH ×2 (21:00)
[2020-07-24 04:00] VITALS: BP 132/70
[2020-07-24] MEDS ORDERED: Miralax 17gm pkt ORAL PRN (07:30)
[2020-07-24 08:00] VITALS: BP 131/71
[2020-07-24] MEDS: Calcitriol 0.25mcg Cap ORAL SCH (08:35)
[2020-07-24] MEDS: Amiodarone 200mg tab ORAL SCH (08:35)
[2020-07-24] MEDS: Nephrovite tab (Rena-Vite) ORAL SCH (08:35)
[2020-07-24] MEDS: dilTIAZem HCl CD 120mg cap ORAL SCH (08:36)
[2020-07-24] MEDS ORDERED: dilTIAZem HCl CD 120mg cap ORAL SCH (09:00)
[2020-07-24] MEDS ORDERED: Amiodarone 200mg tab ORAL SCH (09:00)
--- NOTE | 2020-07-24 11:58 | Infectious Diseases Prog Note ---
Assessment/Plan Assessment/Plan IMPRESSION: Sepsis with Staph aureus and E.coli treated Atrial fibrillation Right temporal ulcer , healing Failure of kidney transplant, Renal failure, Acidosis, Severe anemia, Hypertension. MRSA carrier Bradycardia RECOMMENDATIONS: Observe off antibiotic Skin lesion was most likely infection related Surgeon doubts malignancy Subjective ROS Limited/Unobtainable: No Constitutional: Reports: no symptoms Respiratory: Reports: no symptoms Cardiovascular: Reports: no symptoms Gastrointestinal/Abdominal: Reports: no symptoms Genitourinary: Reports: no symptoms Allergies: Coded Allergies: ASPIRIN (Verified Allergy, Unknown, 07/04/20) Objective Last 24 Hour Vital Signs Date Time Temp Pulse Resp B/P (MAP) Pulse Ox O2 Delivery O2 Flow Rate FiO2 07/24/20 08:36 68 131/71 07/24/20 08:00 97.9 69 20 131/71 (91) 99 07/24/20 08:00 69 07/24/20 04:00 97.2 63 18 132/70 (90) 97 07/24/20 04:00 66 07/24/20 00:00 64 07/23/20 21:00 Room Air 07/23/20 20:05 99 Room Air 21 07/23/20 20:00 65 07/23/20 20:00 97.5 67 18 141/71 (94) 98 07/23/20 16:00 69 07/23/20 16:00 98.8 77 20 132/57 (82) 96 07/23/20 13:31 97.9 78 18 138/78 (98) 99 07/23/20 12:00 97.9 68 18 131/77 (95) 99 70 Height (Feet): 5 Height (Inches): 7.00 Weight (Pounds): 132 General Appearance: no acute distress HEENT: mucous membranes moist Respiratory/Chest: lungs clear Cardiovascular: normal rate Abdomen: soft, non tender Extremities: no edema Skin: other - Rtemporal ulcer healing Neurologic/Psychiatric: alert, oriented x 3, responsive Current Medications Medications (Trade) Dose Ordered Sig/Marco A Route PRN Reason Start Time Stop Time Status Last Admin Dose Admin Acetaminophen (Tylenol) 650 mg Q4H PRN ORAL Mild Pain (Pain Scale 1-3) 07/23/20 14:00 08/16/20 17:54 Amiodarone HCl (Cordarone) 200 mg DAILY ORAL 07/24/20 09:00 10/22/20 08:59 07/24/20 08:35 Calcitriol (Rocatrol) 0.25 mcg DAILY ORAL 07/24/20 09:00 10/05/20 13:59 07/24/20 08:35 Chlorpromazine (Thorazine) 25 mg TIDPRN PRN ORAL hiccup 07/23/20 13:45 08/16/20 13:44 Dextrose (Dextrose 50%) 25 ml Q30M PRN IV Hypoglycemia 07/23/20 13:15 10/02/20 18:44 Dextrose (Dextrose 50%) 50 ml Q30M PRN IV Hypoglycemia 07/23/20 13:30 10/02/20 16:59 Diltiazem HCl (Cardizem CD) 120 mg DAILY ORAL 07/24/20 09:00 08/23/20 08:59 07/24/20 08:36 Epoetin Mode (Epoetin Mode(ESRD on dialysis)) 8,000 unit THU-THU-THU SUBQ 07/23/20 21:00 10/02/20 20:59 07/23/20 20:31 Nitroglycerin (Ntg) 0.4 mg Q5M PRN SL Prn Chest Pain 07/23/20 13:15 08/16/20 14:31 Polyethylene Glycol (Miralax) 17 gm DAILYPRN PRN ORAL Constipation 07/24/20 07:30 08/16/20 07:29 Vitamin B Complex/ Vit C/Folic Acid (Nephrovite) 1 tab DAILY ORAL 07/24/20 09:00 08/03/20 19:59 07/24/20 08:35 Darius Hyde MD Jul 24, 2020 11:57
[2020-07-24 12:00] VITALS: BP 155/55
--- NOTE | 2020-07-24 12:02 | Cardiac Electrophysiology PN ---
Assessment/Plan Assessment/Plan 1. Atrial fibrillation and RVR with heart rate of 180s. On Cardizem CD 120 daily and Amiodarone 200 daily Off Eliquis as stool OB is positive . EF 65%. Transfered to tele 2. Troponin leak likely due to renal failure and atrial fib with RVR. ECho Nl EF 3. Profound anemia, hemoglobin of 6. S/P blood transfusion. Stool OB is positive. Off Eliquis Could be due to renal failure. FU GI and hematology 4. Acute on chronic renal failure in a patient with history of kidney transplan t. Back on hemodialysis via Left arm AVF under management of Dr. Alisha Hyde. 5. Thrombocytopenia. 6. History of hypertension.On Cardizem and HD 7. Sepsis with Staph aureus and E.coli, off Abx per Dr Eulalia ORDAZ RN Subjective Subjective Alert in NAD. No CP. Had bradycardia HR 40s and transferred to telemetry. Amio and Lopressor were decreased. Now getting HD. BP running high Objective Last 24 Hour Vital Signs Date Time Temp Pulse Resp B/P (MAP) Pulse Ox O2 Delivery O2 Flow Rate FiO2 07/24/20 08:36 68 131/71 07/24/20 08:00 97.9 69 20 131/71 (91) 99 07/24/20 08:00 69 07/24/20 04:00 97.2 63 18 132/70 (90) 97 07/24/20 04:00 66 07/24/20 00:00 64 07/23/20 21:00 Room Air 07/23/20 20:05 99 Room Air 21 07/23/20 20:00 65 07/23/20 20:00 97.5 67 18 141/71 (94) 98 07/23/20 16:00 69 07/23/20 16:00 98.8 77 20 132/57 (82) 96 07/23/20 13:31 97.9 78 18 138/78 (98) 99 Intake and Output 07/23/20 07/24/20 19:00 07:00 # Voids 1 # Bowel Movements 2 Objective HEAD AND NECK: Positive JVD. LUNGS: Decreased breath sounds. CARDIOVASCULAR: Shows irregularly irregular, tachycardic S1 and S2. ABDOMEN: Soft. EXTREMITIES: No pitting edema.Left arm AVF Juaquin Tomlin MD Jul 24, 2020 12:02
--- NOTE | 2020-07-24 12:03 | Surgery Progress Note ---
Surgery Progress Note Subjective Symptoms: improved, pain absent, tolerating diet, passing flatus, BM Objective Last 24 Hour Vital Signs Date Time Temp Pulse Resp B/P (MAP) Pulse Ox O2 Delivery O2 Flow Rate FiO2 07/24/20 08:36 68 131/71 07/24/20 08:00 97.9 69 20 131/71 (91) 99 07/24/20 08:00 69 07/24/20 04:00 97.2 63 18 132/70 (90) 97 07/24/20 04:00 66 07/24/20 00:00 64 07/23/20 21:00 Room Air 07/23/20 20:05 99 Room Air 21 07/23/20 20:00 65 07/23/20 20:00 97.5 67 18 141/71 (94) 98 07/23/20 16:00 69 07/23/20 16:00 98.8 77 20 132/57 (82) 96 07/23/20 13:31 97.9 78 18 138/78 (98) 99 I&O Intake and Output 07/23/20 07/24/20 19:00 07:00 # Voids 1 # Bowel Movements 2 Dressing: saturated Wound: clean Cardiovascular: RSR Respiratory: clear Abdomen: soft, non-tender, present bowel sounds Extremities: no edema, no tenderness, no cyanosis Plan Problems: (1) Elevated troponin (2) Acute renal failure (3) Basal cell carcinoma Assessment & Plan: Right forehead scalp open wound potential basal cell carcinoma ulcerated raised edges significant slough in the center. Infected. Recommend local wound care and infection control. Will considerations for biopsy versus excisional biopsy with flap. Need medical optimization resuscitation first. Continue with current medical care. Discussed with patient and PCP. Will consider plans for local control upon improvement. Thank you fine partition patient's care. Wash wound daily with normal saline. Apply dressings 3 times daily. non excisional debridement at bedside wound much wall cleaner dressing TID gauze cont dressings will monitor as improving looks more like infection that was out of control. wound healing well will cont local care and monitor wound 80% healed improving daily will monitor may not need surgery wound is almost completely healed. no signs of infection at this time no signs of skin tumor cont with local care. will monitor thank you outpatient follow up okay to d/c nearly resolved cont to need HD (4) Metabolic acidosis (5) Profound anemia (6) Chest pain (7) ESRD (end stage renal disease) on dialysis (8) Mathew Brown Jul 24, 2020 12:03
[2020-07-24 16:00] VITALS: BP 118/69
[2020-07-24] MEDS ORDERED: NEPHROVITE1 TAB ORAL (17:00)
[2020-07-24] MEDS ORDERED: CARDIZEM CD120 MG ORAL (17:00)
[2020-07-24] MEDS ORDERED: PACERONE200 MG ORAL (17:00)
[2020-07-24] MEDS ORDERED: ROCALTROL0.25 MCG ORAL (17:00)
[2020-07-24 20:00] VITALS: BP 117/69
--- NOTE | 2020-07-24 21:11 | General Progress Note ---
Assessment/Plan Problem List: (1) ESRD (end stage renal disease) on dialysis ICD Codes: N18.6 - End stage renal disease; Z99.2 - Dependence on renal dialysis SNOMED: 521870587 (2) Metabolic acidosis ICD Codes: E87.2 - Acidosis SNOMED: 03239740 (3) Profound anemia ICD Codes: D64.9 - Anemia, unspecified SNOMED: 273497498 Qualifiers: Qualified Codes: D64.9 - Anemia, unspecified (4) Elevated troponin ICD Codes: R79.89 - Other specified abnormal findings of blood chemistry SNOMED: 374665401, 684936059, 023447836 (5) Status post kidney transplant ICD Codes: Z94.0 - Kidney transplant status SNOMED: 438874694, 82111804, 89662250 Assessment/Plan: cont as is HD tomorrow DC tomorrow Subjective Allergies: Coded Allergies: ASPIRIN (Verified Allergy, Unknown, 07/04/20) Subjective all noted Objective Last 24 Hour Vital Signs Date Time Temp Pulse Resp B/P (MAP) Pulse Ox O2 Delivery O2 Flow Rate FiO2 07/24/20 16:00 73 07/24/20 16:00 98.8 73 20 118/69 (85) 100 07/24/20 12:42 97 Room Air 21 07/24/20 12:00 97.8 72 20 155/55 (88) 100 07/24/20 12:00 72 07/24/20 08:36 68 131/71 07/24/20 08:00 97.9 69 20 131/71 (91) 99 07/24/20 08:00 69 07/24/20 04:00 97.2 63 18 132/70 (90) 97 07/24/20 04:00 66 07/24/20 00:00 64 Intake and Output 07/23/20 07/24/20 19:00 07:00 # Voids 1 # Bowel Movements 2 Height (Feet): 5 Height (Inches): 7.00 Weight (Pounds): 132 Raulito Hyde MD Jul 24, 2020 21:11
[2020-07-25] VITALS: BP 112/61
--- NOTE | 2020-07-25 01:29 | Cardiology Report ---
APPROVED REPORT EKG Measurement Heart [id number] <Conclusion> Sinus rhythm with 1st degree AV block Rightward axis Anterior infarct, age undetermined Abnormal ECG
--- NOTE | 2020-07-25 01:38 | Cardiology Report ---
APPROVED REPORT EKG Measurement Heart [id number] <Conclusion> Sinus rhythm with 1st degree AV block Anteroseptal infarct, age undetermined Abnormal ECG
--- NOTE | 2020-07-25 01:46 | Cardiology Report ---
APPROVED REPORT EXAM: Two-dimensional and M-mode echocardiogram with Doppler and color Doppler. INDICATION Shortness of breath M-Mode DIMENSIONS IVSd1.5 (0.7-1.1cm)Left Atrium (MM)5.1 (1.6-4.0cm) LVDd5.0 (3.5-5.6cm)Aortic Root3.4 (2.0-3.7cm) PWd1.5 (0.7-1.1cm)Aortic Cusp Exc.1.8 (1.5-2.0cm) IVSs1.9 cmEPSS0.1 (>1.0cm) LVDs2.7 (2.5-4.0cm) PWs2.3 cm <Conclusion> Normal left ventricular chamber size, systolic function and wall motion. Left ventricular ejection fraction estimated to be 65 %. Mild left ventricular hypertrophy. Trivial posterior pericardial effusion. Mild left atrial enlargement. Right cardiac chamber sizes are within normal limits. Moderate focal aortic valve sclerosis with normal cusp excursion. Thickened mitral valve leaflets with normal excursion. Mitral annulus and aortic root calcification. Normal pulmonic valve structure. Normal tricuspid valve structure. IVC dilated at 2.6 cm and with slight physiologic collapse suggestive of increased RA pressure. A color flow and spectral Doppler study was performed and revealed: Mild aortic regurgitation. Mitral diastolic velocities suggest mild diastolic dysfunction (Grade I). Mild mitral regurgitation. Trace to mild tricuspid regurgitation. Tricuspid systolic velocities suggests peak right ventricular systolic pressure of 34 mmHg.
[2020-07-25 04:00] VITALS: BP 108/64
[2020-07-25 08:00] VITALS: BP 108/53
[2020-07-25] MEDS: Nephrovite tab (Rena-Vite) ORAL SCH (08:32)
[2020-07-25] MEDS: Amiodarone 200mg tab ORAL SCH (08:32)
[2020-07-25] MEDS: Calcitriol 0.25mcg Cap ORAL SCH (08:32)
[2020-07-25] MEDS: dilTIAZem HCl CD 120mg cap ORAL SCH (08:33)
[2020-07-25] MEDS ORDERED: Heparin Sod 1000 units/ml 10ml IV ONE (09:00)
--- NOTE | 2020-07-25 09:55 | Infectious Diseases Prog Note ---
Assessment/Plan Assessment/Plan IMPRESSION: Sepsis with Staph aureus and E.coli treated Atrial fibrillation Right temporal ulcer , healing Failure of kidney transplant, Renal failure, Acidosis, Severe anemia, Hypertension. MRSA carrier Bradycardia RECOMMENDATIONS: Observe off antibiotic Agree with discharge Subjective ROS Limited/Unobtainable: No Respiratory: Reports: no symptoms Cardiovascular: Reports: no symptoms Gastrointestinal/Abdominal: Reports: no symptoms Genitourinary: Reports: no symptoms Allergies: Coded Allergies: ASPIRIN (Verified Allergy, Unknown, 07/04/20) Objective Last 24 Hour Vital Signs Date Time Temp Pulse Resp B/P (MAP) Pulse Ox O2 Delivery O2 Flow Rate FiO2 07/25/20 08:33 72 108/53 07/25/20 04:00 98.9 65 20 108/64 (79) 98 07/25/20 04:00 60 07/25/20 00:00 73 07/25/20 00:00 98.2 66 18 112/61 (78) 98 07/24/20 21:00 Room Air 07/24/20 20:00 99.0 74 18 117/69 (85) 100 07/24/20 20:00 73 07/24/20 19:11 98 Room Air 21 07/24/20 16:00 73 07/24/20 16:00 98.8 73 20 118/69 (85) 100 07/24/20 12:42 97 Room Air 21 07/24/20 12:00 97.8 72 20 155/55 (88) 100 07/24/20 12:00 72 Height (Feet): 5 Height (Inches): 7.00 Weight (Pounds): 132 General Appearance: no acute distress HEENT: mucous membranes moist Respiratory/Chest: lungs clear Cardiovascular: normal rate Abdomen: soft, non tender Skin: ulcers, other - R temporal Neurologic/Psychiatric: alert, oriented x 3, responsive Current Medications Medications (Trade) Dose Ordered Sig/Marco A Route PRN Reason Start Time Stop Time Status Last Admin Dose Admin Acetaminophen (Tylenol) 650 mg Q4H PRN ORAL Mild Pain (Pain Scale 1-3) 07/23/20 14:00 08/16/20 17:54 07/24/20 22:11 Amiodarone HCl (Cordarone) 200 mg DAILY ORAL 07/24/20 09:00 10/22/20 08:59 07/25/20 08:32 Calcitriol (Rocatrol) 0.25 mcg DAILY ORAL 07/24/20 09:00 10/05/20 13:59 07/25/20 08:32 Chlorpromazine (Thorazine) 25 mg TIDPRN PRN ORAL hiccup 07/23/20 13:45 08/16/20 13:44 Dextrose (Dextrose 50%) 25 ml Q30M PRN IV Hypoglycemia 07/23/20 13:15 10/02/20 18:44 Dextrose (Dextrose 50%) 50 ml Q30M PRN IV Hypoglycemia 07/23/20 13:30 10/02/20 16:59 Diltiazem HCl (Cardizem CD) 120 mg DAILY ORAL 07/24/20 09:00 08/23/20 08:59 07/25/20 08:33 Epoetin Mode (Epoetin Mode(ESRD on dialysis)) 8,000 unit THU-THU-THU SUBQ 07/23/20 21:00 10/02/20 20:59 07/23/20 20:31 Nitroglycerin (Ntg) 0.4 mg Q5M PRN SL Prn Chest Pain 07/23/20 13:15 08/16/20 14:31 Polyethylene Glycol (Miralax) 17 gm DAILYPRN PRN ORAL Constipation 07/24/20 07:30 08/16/20 07:29 Sodium Chloride 1,000 ml @ 500 mls/hr Q2H PRN IVLG sbp<90 during hd 07/25/20 09:00 07/25/20 23:59 Vitamin B Complex/ Vit C/Folic Acid (Nephrovite) 1 tab DAILY ORAL 07/24/20 09:00 08/03/20 19:59 07/25/20 08:32 Darius yHde MD Jul 25, 2020 09:55
--- NOTE | 2020-07-25 11:25 | General Progress Note ---
Assessment/Plan Problem List: (1) ESRD (end stage renal disease) on dialysis ICD Codes: N18.6 - End stage renal disease; Z99.2 - Dependence on renal dialysis SNOMED: 275412831 (2) Metabolic acidosis ICD Codes: E87.2 - Acidosis SNOMED: 74162309 (3) Profound anemia ICD Codes: D64.9 - Anemia, unspecified SNOMED: 883609656 Qualifiers: Qualified Codes: D64.9 - Anemia, unspecified (4) Elevated troponin ICD Codes: R79.89 - Other specified abnormal findings of blood chemistry SNOMED: 548161085, 499302757, 240733515 (5) Status post kidney transplant ICD Codes: Z94.0 - Kidney transplant status SNOMED: 257712914, 37748581, 45238938 Assessment/Plan: cont as is HD today DC today Subjective Allergies: Coded Allergies: ASPIRIN (Verified Allergy, Unknown, 07/04/20) Subjective all noted Objective Last 24 Hour Vital Signs Date Time Temp Pulse Resp B/P (MAP) Pulse Ox O2 Delivery O2 Flow Rate FiO2 07/25/20 09:00 Room Air 07/25/20 08:33 72 108/53 07/25/20 08:00 97.5 65 17 108/53 (71) 99 07/25/20 08:00 70 07/25/20 04:00 98.9 65 20 108/64 (79) 98 07/25/20 04:00 60 07/25/20 00:00 73 07/25/20 00:00 98.2 66 18 112/61 (78) 98 07/24/20 21:00 Room Air 07/24/20 20:00 99.0 74 18 117/69 (85) 100 07/24/20 20:00 73 07/24/20 19:11 98 Room Air 21 07/24/20 16:00 73 07/24/20 16:00 98.8 73 20 118/69 (85) 100 07/24/20 12:42 97 Room Air 07/24/20 12:00 97.8 72 20 155/55 (88) 100 07/24/20 12:00 72 Intake and Output 07/24/20 07/25/20 19:00 07:00 Intake Total 320 ml 240 ml Output Total 1000 ml Balance -680 ml 240 ml Intake Oral 320 ml 240 ml Hemodialysis UF 1000 ml # Voids 2 # Bowel Movements 1 Height (Feet): 5 Height (Inches): 7.00 Weight (Pounds): 132 Raulito Hyde MD Jul 25, 2020 11:25
[2020-07-25 12:00] VITALS: BP 104/62
--- NOTE | 2020-07-25 14:37 | Surgery Progress Note ---
Surgery Progress Note Subjective Symptoms: improved, pain absent, tolerating diet, passing flatus, BM Objective Last 24 Hour Vital Signs Date Time Temp Pulse Resp B/P (MAP) Pulse Ox O2 Delivery O2 Flow Rate FiO2 07/25/20 12:40 97 Room Air 21 07/25/20 12:00 97.6 71 18 104/62 (76) 100 07/25/20 12:00 72 07/25/20 09:00 Room Air 07/25/20 08:33 72 108/53 07/25/20 08:00 97.5 65 17 108/53 (71) 99 07/25/20 08:00 70 07/25/20 04:00 98.9 65 20 108/64 (79) 98 07/25/20 04:00 60 07/25/20 00:00 73 07/25/20 00:00 98.2 66 18 112/61 (78) 98 07/24/20 21:00 Room Air 07/24/20 20:00 99.0 74 18 117/69 (85) 100 07/24/20 20:00 73 07/24/20 19:11 98 Room Air 21 07/24/20 16:00 73 07/24/20 16:00 98.8 73 20 118/69 (85) 100 I&O Intake and Output 07/24/20 07/25/20 19:00 07:00 Intake Total 320 ml 240 ml Output Total 1000 ml Balance -680 ml 240 ml Intake Oral 320 ml 240 ml Hemodialysis UF 1000 ml # Voids 2 # Bowel Movements 1 Dressing: saturated Wound: clean Cardiovascular: RSR Respiratory: clear Abdomen: soft, non-tender, present bowel sounds Extremities: no edema, no tenderness, no cyanosis Plan Problems: (1) Elevated troponin (2) Acute renal failure (3) Basal cell carcinoma Assessment & Plan: Right forehead scalp open wound potential basal cell carcinoma ulcerated raised edges significant slough in the center. Infected. Recommend local wound care and infection control. Will considerations for biopsy versus excisional biopsy with flap. Need medical optimization resuscitation first. Continue with current medical care. Discussed with patient and PCP. Will consider plans for local control upon improvement. Thank you fine partition patient's care. Wash wound daily with normal saline. Apply dressings 3 times daily. non excisional debridement at bedside wound much ditch cleaner dressing TID gauze cont dressings will monitor as improving looks more like infection that was out of control. wound healing well will cont local care and monitor wound 80% healed improving daily will monitor may not need surgery wound is almost completely healed. no signs of infection at this time no signs of skin tumor cont with local care. will monitor thank you outpatient follow up okay to d/c nearly resolved cont to need HD (4) Metabolic acidosis (5) Profound anemia (6) Chest pain (7) ESRD (end stage renal disease) on dialysis (8) Mathew Brown Jul 25, 2020 14:37
[2020-07-25 16:00] VITALS: BP 106/57
--- NOTE | 2020-07-25 17:43 | Cardiac Electrophysiology PN ---
Assessment/Plan Assessment/Plan 1. Atrial fibrillation and RVR with heart rate of 180s. On Cardizem CD 120 daily and Amiodarone 200 daily Off Eliquis as stool OB is positive . EF 65%. 2. Troponin leak likely due to renal failure and atrial fib with RVR. ECho Nl EF 3. Profound anemia, hemoglobin of 6. S/P blood transfusion. Stool OB is positive. Off Eliquis Could be due to renal failure. FU GI and hematology 4. Acute on chronic renal failure in a patient with history of kidney transplan t. Back on hemodialysis via Left arm AVF under management of Dr. Alisha Hyde. 5. Thrombocytopenia. 6. History of hypertension.On Cardizem and HD 7. Sepsis with Staph aureus and E.coli, off Abx per Dr Eulalia ORDAZ RN Subjective Subjective Alert in NAD. No CP. No urmila after Amio and Lopressor were decreased. DC pending today Objective Last 24 Hour Vital Signs Date Time Temp Pulse Resp B/P (MAP) Pulse Ox O2 Delivery O2 Flow Rate FiO2 07/25/20 12:40 97 Room Air 21 07/25/20 12:00 97.6 71 18 104/62 (76) 100 07/25/20 12:00 72 07/25/20 09:00 Room Air 07/25/20 08:33 72 108/53 07/25/20 08:00 97.5 65 17 108/53 (71) 99 07/25/20 08:00 70 07/25/20 04:00 98.9 65 20 108/64 (79) 98 07/25/20 04:00 60 07/25/20 00:00 73 07/25/20 00:00 98.2 66 18 112/61 (78) 98 07/24/20 21:00 Room Air 07/24/20 20:00 99.0 74 18 117/69 (85) 100 07/24/20 20:00 73 07/24/20 19:11 98 Room Air 21 Intake and Output 07/24/20 07/25/20 19:00 07:00 Intake Total 320 ml 240 ml Output Total 1000 ml Balance -680 ml 240 ml Intake Oral 320 ml 240 ml Hemodialysis UF 1000 ml # Voids 2 # Bowel Movements 1 Objective HEAD AND NECK: Positive JVD. LUNGS: Decreased breath sounds. CARDIOVASCULAR: Shows irregularly irregular, tachycardic S1 and S2. ABDOMEN: Soft. EXTREMITIES: No pitting edema.Left arm AVF Juaquin Tomlin MD Jul 25, 2020 17:43
--- NOTE | 2020-07-26 08:23 | CDS Physician Query ---
Clarification is required for compliance, coding accuracy, and to reflect severity of illness for this patient Dear Dr. Raulito Hyde M.D. Date: 07/26/2020 CDI/CDS Name: jT Neumann Clinical Documentation Statement: 55-year-old [place] male with history of end-stage renal disease, status post cadaveric renal transplantation about 4-1/2 years ago with no followup for at least one and a half years. IMPRESSION: Bacteremia, likely sepsis with gram-positive and gram-negative. The patient seems to have necrotic skin lesion in the right temporal area, likely skin cancer, may have infection also. He has rejected kidney transplant, renal failure, acidosis, severe anemia, and hypertension. NUTRITION DIAGNOSIS: Altered nutrition related lab values R/T h/o kidney transplant, ESRD as evidenced by elev creat (12.6-> 10.1), elev BNP >91274 Clinical Finding Show: BMI: 20.4kg/m2 LAB (07/04) : Chem: Albumin 2.8 [3.4-5.0] Medication: Dextrose 50ml IV Please select the most appropriate option: [x] Protein/Calorie Malnutrition [] Mild [x Moderate [] Severe [] Other [] Unable to determine [] Not Applicable Present on Admission: [] Yes [] No [] Clinically Undetermined Physician signature Date Please also document in your Progress Notes and/or Discharge Summary and indicate if the condition was present on admission. MTDD
--- NOTE | 2020-07-26 08:41 | CDS Physician Query ---
Clarification is required for compliance, coding accuracy, and to reflect severity of illness for this patient Dear Raulito Cartwright MD. Date: 07/26/20 CDI/CDS : Tj Neumann Clinical Documentation Statement: 55-year-old male admitted yesterday from home because of left-sided chest pain and shortness of breath on exertion for 10 days. IMPRESSION: Bacteremia, likely sepsis with gram-positive and gram-negative. The patient seems to have necrotic skin lesion in the right temporal area, likely skin cancer, may have infection also. He has rejected kidney transplant, renal failure, acidosis, severe anemia, and hypertension. Assessment: Afib, Troponin leak likely due to renal failure,Profound anemia Acute on chronic renal failure w/ kidney transplant, Sepsis LABORATORY AND DIAGNOSTIC DATA: Sodium 131, potassium 5.1, chloride 100, carbon dioxide less than 5, BUN 157, creatinine 13.1. Blood gas showed severe acidosis with pH of 7.269, ABG pCO2 12.2, ABG Base Excess -19.7L Blood cultures, gram-positive cocci in cluster and gram-negative rods. COVID-19 test negative. Vitals:(07/04): AL: 110 RR: 30 Treatment : Oxygen Delivery Method - Nasal Cannula 2.0 L/min (07/05) Please clarify if the patient had any of the following conditions based on the above clinical findings: [ ]Respiratory Failure [ ] Acute [ ] Chronic (on home O2) [ ] Acute on Chronic [ ] Acute Respiratory Distress [ ] Unable to determine [x ] Other: no resp failure Present on Admission: [] Yes [x] No [] Clinically Undetermined Physician signature Date Please also document in your Progress Notes and/or Discharge Summary and indicate if the condition was present on admission. ALDOD
--- NOTE | 2020-07-26 13:58 | Discharge Summary ---
Discharge Summary Discharge Summary _ DATE OF ADMISSION: 07/04/2020 DATE OF DISCHARGE: 07/25/2020 DISCHARGED BY: Dr. Raulito Hyde REASON FOR ADMISSION: 55 years old male with past medical history of hypertension, end-stage renal disease,s/p cadaveric renal transplant about 4,5 years ago in the [facility] , presented for shortness of breath for the last 10 days. Patient apparently seen the transplant team last time about a year and a half ago. He did not seek any medical attention after [facility] was closed. Upon initial evaluation in emergency department patient was found to be severely uremic and acidotic. BUN was 148 and creatinine 12.6 respectively. Bicarbonate 7, sodium 125. Hemoglobin 6, hematocrit 19.0 ABG revealed severe metabolic acidosis with bicarb 5.5, PCO2 12.2 pH 7.27. Troponin 0.084, pro BNP 33505. CRP 20.6. Rapid COVID-19 was negative. Chest X-ray revealed no acute cardiopulmonary pathology In emergency department patient received aspirin, empiric antibiotics , 1 L of fluid and admitted for further management. CONSULTANTS: missile and missile checkout technician Dr. Linder ID specialist Dr. Darius Hyde surgery Dr. Green [facility] COURSE: Patient admitted to telemetry floor. Patient received urgent dialysis and then continued with hemodialysis with close monitoring of volumes and cardiorenal parameters. Renal parameters and electrolytes were closely monitored. Electrolytes corrected as needed. Patient was transfused with total of 2 units of packed red blood cells. Patient started on broad-spectrum antibiotic as per ID specialist recommendation. Rehab Liaison closely followed. Troponin trended up. EKG revealed no acute ischemic changes. Patient also noted to have atrial fibrillation with rapid ventricular response. Heart rate was controlled with the Cardizem and amiodarone. Patient initially started on anticoagulation with Eliquis. Echocardiogram revealed preserved ejection fraction of 65%. No evidence of wall motion abnormality. Mild left ventricular hypertrophy. Minimally elevated troponin was likely troponin leak, most likely due to renal failure and atrial fibrillation with rapid ventricular response. Anticoagulation stopped since stool for occult blood was positive. Patient received total of 2 units of packed red blood cells while in the hospital. Anemia work-up was consistent with anemia of chronic disease. Low iron noted as well. Patient was on IV Venofer and Epogen . Prior to discharge hemoglobin 10.2, hematocrit 34.1. Patient was advised to follow-up with GI and hematology evaluation as outpatient. Patient initially started on empiric antibiotics. Blood culture revealed Staph aureus and E. coli. Urine culture was negative. Repeated blood cultures were negative. Antibiotic provided as per ID recommendation. Patient remained afebrile, without leukocytosis. Patient completed antibiotic treatment while in the hospital . Infectious disease doctor recommended observe patient off antibiotic. Patient had necrotic lesion in the right temporal area . Initially it was thought to be a possible skin cancer . Surgeon seen and evaluated patient and recommended local wound care at this time and medical optimization first. Initially recommended to consider biopsy versus excisional biopsy of the flap after medical optimization . Wound nearly healed with local wound care and IV antibiotics. No signs of infection . Right temporal ulcer was due to untreated abscess/infected ulcer for a long time, which responded well to treatment. Outpatient hemodialysis was arranged. Hepatitis panel was negative. Patient clinically stabilized and was ready for discharge home. FINAL DIAGNOSES: Sepsis with Staph aureus and E. coli, status post treatment acute on chronic renal failure Right temporal ulcer -healing Atrial fibrillation with rapid ventricular response Troponin leak . likely due to renal failure and atrial fibrillation with rapid ventricular response Profound anemia ( requiring blood transfusion) Failure of kidney transplant Metabolic acidosis Hypertension DISCHARGE MEDICATIONS: See Medication Reconciliation list. DISCHARGE INSTRUCTIONS: Patient was discharged home. Outpatient hemodialysis arranged. Patient to follow-up with outpatient dialysis as scheduled. Patient to follow-up with primary care provider in 1 week. Follow-up with GI and hematology evaluation as outpatient. I have been assigned to dictate discharge summary for this account. I was not involved in the patient's management. Tamar Real NP Jul 26, 2020 13:58
== END 2020-07-25 17:28 | disposition home or self-care (01) | DRG 720 ==
LOC: EDUNIT# 14:19 → EDBD 14:19 → EMR 15:08 → 2E 15:37 → EDBEDREQ 17:46 → 2E 18:56 → ICU 07-05 16:07 → 2E 07-06 15:08 → 4E 07-08 06:55 → ICU 07-16 23:10 → 2W 07-17 14:23 → 2E 07-19 06:19 → 4E 07-21 17:48 → 2E 07-23 12:51
PROC: 5A1D70Z Performance of Urinary Filtration, Intermittent, Less than 6 Hours Per Day (ICD-10-PCS; 2020-07-04)
PROC: 0HD1XZZ Extraction of Face Skin, External Approach (ICD-10-PCS; principal; 2020-07-08)
DX: A41.02 Sepsis due to Methicillin resistant Staphylococcus aureus (principal); A41.51 Sepsis due to Escherichia coli [E. coli]; I48.0 Paroxysmal atrial fibrillation; T86.12 Kidney transplant failure; N17.9 Acute kidney failure, unspecified; E87.1 Hypo-osmolality and hyponatremia; D69.6 Thrombocytopenia, unspecified; E87.2 Acidosis; N18.9 Chronic kidney disease, unspecified; I12.9 Hypertensive chronic kidney disease with stage 1 through stage 4 chronic kidney disease, or unspecified chronic kidney disease; E44.0 Moderate protein-calorie malnutrition; D64.9 Anemia, unspecified; C44.319 Basal cell carcinoma of skin of other parts of face; R00.1 Bradycardia, unspecified; R06.02 Shortness of breath; Z20.828 Contact with and (suspected) exposure to other viral communicable diseases
CPT/HCPCS: 36415; 36600; 71045; 76770; 80048; 80053; 80061; 80162; 80202; 81003; 82270; 82550; 82570; 82728; 82803; 83036; 83540; 83550; 83605; 83615; 83880; 84100; 84300; 84439; 84443; 84484; 85007; 85025; 85610; 85730; 86140; 86706; 86707; 86803; 86850; 86900; 86901; 86920; 87040; 87081; 87086; 87181; 93005; 93306; 96365; 96368; 99291; 99292; G0480; J7030; U0002